=== PATIENT | female | born 2000 | race Caucasian/White ===

== ENCOUNTER 2019-12-26 17:22 | Emergency (ER) | payer OTHER, MEDICAID, SELFPAY ==
--- NOTE | ~2019-12-26 | XR_ITS ---
EXAMINATION: XR chest 1V portable EXAM DATE: 12/26/2019 20:46 INDICATION: Mid chest pain, anxiety. TECHNIQUE: Portable AP frontal chest x-ray was obtained. Comparison is made to prior examination from 12/02/18. FINDINGS: The lungs are clear. There are no pleural effusions. The cardiomediastinal silhouette is within normal limits. There is no pneumothorax suspected. The bones and soft tissues are unremarkab le. IMPRESSION: No acute cardiopulmonary findings. Reviewed, dictated and finalized at location A.
--- NOTE | 2019-12-26 17:30 | ECG_ITS ---
Measurements Intervals [place] Rate: 107 P: 59 RI: 177 QRS: 79 QRSD: 93 T: 7 QT: 319 QTc: 427 Interpretive Statements SINUS TACHYCARDIA ABNORMAL ECG BORDERLINE T WAVE ABNORMALITY- INFERIOR LEADS BASELINE ARTIFACT- II, III, AVF ABNORMAL ECG Electronically Signed On 12-26-2019 18:43:51 CDT by Calvin Osei D.O.
[2019-12-26 18:24] VITALS: BP 142/93; PULSE 120; RESP 22; TEMP 36.9; O2SAT 100
[2019-12-26 18:42] LABS: Basophils Percent Auto 0.3 % (0.2-1.2); Eosinophils Absolute Auto 0.1 K/mm3 (0-0.3); Eosinophils Percent Auto 1.5 % (0-4.4); Hematocrit 37.3 % (37.0-47.0); Hemoglobin 13.1 g/dL (12.0-15.0); Immature Granulocyte Absolute 0.03 K/mm3 (0.00-0.031); Immature Granulocyte Percent A 0.4 % (0-0.5); Lymphocytes Absolute Auto 1.66 K/mm3 (0.9-3.2); Lymphocytes Percent Auto 22.1 % (18.3-44.2); Mean Corpuscular HGB Conc 35.1 g/dl (32-36); Mean Corpuscular Hemoglobin 29.7 pg (26-34); Mean Corpuscular Volume 84.6 fl (80-100); Mean Platelet Volume 10.1 fl (7.4-10.4); Monocytes Absolute Auto 0.7 K/mm3 (0.1-0.6); Monocytes Percent Auto 8.9 % (2.6-8.5); Neutrophils Percent Auto 66.8 % (45.5-73.1); Platelet Count Result 218 k/mm3 (150-375); Red Blood Count 4.41 M/mm3 (4.2-5.4); White Blood Count 7.5 K/mm3 (4.5-10.0)
[2019-12-26 18:44] LABS: Prothrombin Time 12.5 Seconds (11.1-14.7)
[2019-12-26 18:46] LABS: Anion Gap 7 mmol/L (8-16); Blood Urea Nitrogen 11 mg/dL (7-17); Calcium 9.4 mg/dL (8.4-10.2); Carbon Dioxide 26 mmol/L (22-30); Chloride 107 mmol/L (98-107); Estimated CRCL calculation 126 ml/min; Estimated Glomerular Filt Rate > 60; Glucose 103 mg/dL (65-105); Potassium 3.8 mmol/L (3.4-5.0); Sodium 140 mmol/L (137-145)
[2019-12-26 18:58] LABS: Troponin I < 0.012 ng/mL (0.000-0.034)
[2019-12-26 18:59] VITALS: BP 164/88; PULSE 107; RESP 18; O2SAT 98
[2019-12-26 20:00] VITALS: BP 126/86; PULSE 104; RESP 17; O2SAT 99
[2019-12-26 20:14] LABS: Magnesium 1.9 mg/dL (1.6-2.3)
[2019-12-26 20:18] LABS: D Dimer 0.39 ug/mL (<0.48)
--- NOTE | 2019-12-26 20:30 | PC.NURSE ---
Patient refusing IV start and IV fluids-she feels that all her symptoms were related to Anxiety attack. Dr Mendez made aware. Patient resting comfortably with family at bedside
[2019-12-26 20:34] LABS: Add Urine Microscopic? YES; Amorphous Sediment Urine Few; Appearance Urine Cloudy (Clear); Bacteria Urine Trace /hpf; Bilirubin Urine Negative (Negative); Blood Urine Negative (Negative); Color Urine Yellow (Yellow); Glucose Urine UA Negative (Negative); Ketones Urine Negative (Negative); Leukocyte Esterase Ur Trace LEU/UL (Negative); Mucus Urine Rare /lpf; Nitrate Urine Negative (Negative); Protein Urine Negative (Negative); RBC Urine 0-2 /hpf (0-2); Specific Grav Ur 1.026 (1.001-1.035); Squamous Epithelial Cell Urine Many /hpf (Few); Urobilinogen Urine Negative mg/dL (<2.0)
--- NOTE | 2019-12-26 20:41 | ED.ANXIETY ---
HPI - Anxiety General Chief Complaint: Anxiety Stated Complaint: ANXIETY, CHEST DISCOMFORT 8WKS PREG Time Seen by Provider: 12/26/19 19:06 Source: patient and family Mode of arrival: ambulatory Limitations: no limitations Review of Systems Review of Systems: All systems reviewed & are unremarkable except as noted in HPI and below Constitutional: Constitutional: Denies chills and Denies fever(s) Cardiovascular: Cardiovascular: Reports chest pain and Reports rapid heart rate Respiratory: Respiratory: Denies cough and Denies wheezing Gastrointestinal: Gastrointestinal: Denies abdominal pain, Reports diarrhea, Reports nausea and Reports vomiting Genitourinary: Genitourinary: Denies nocturia, Denies dysuria and Denies flank pain Musculoskeletal: Musculoskeletal: Denies back pain Psychiatric: Psychiatric: Reports anxiety [facility] Past Medical History Medical History (Updated 12/26/19 @ 20:41 by Lindsey Mendez MD) Patient denies medical problems Social History Social History (Updated 12/26/19 @ 20:41 by Lindsey Mendez MD) Smoking status: Never smoker Alcohol intake: never Substance use: never Gender identity (if verbalized by the patient): Female Course Vital Signs Vital signs: Vital Signs Temperature 98.5 F 12/26/19 18:24 Pulse Rate 120 H 12/26/19 18:24 Respiratory Rate 22 H 12/26/19 18:24 Blood Pressure 142/93 H 12/26/19 18:24 Pulse Oximetry 100 12/26/19 18:24 Temperature 98.5 F 12/26/19 18:24 Pulse Rate 107 H 12/26/19 18:59 Respiratory Rate 18 12/26/19 18:59 Blood Pressure 164/88 H 12/26/19 18:59 Pulse Oximetry 98 12/26/19 18:59 MDM - Anxiety Lab Data Result diagrams: 12/26/19 18:29 12/26/19 18:29 Labs: Lab Results 12/26/19 12/26/19 12/26/19 Range/Units 18:28 18:28 18:29 WBC 7.5 (4.5-10.0) K/mm3 RBC 4.41 (4.2-5.4) M/mm3 Hgb 13.1 (12.0-15.0) g/dL Hct 37.3 (37.0-47.0) % MCV 84.6 (80-100) fl MCH 29.7 (26-34) pg MCHC 35.1 (32-36) g/dl RDW 12.0 (11.5-14.5) % Plt Count 218 (150-375) k/mm3 MPV 10.1 (7.4-10.4) fl Immature Gran % (Auto) 0.4 (0-0.5) % Neut % (Auto) 66.8 (45.5-73.1) % Lymph % (Auto) 22.1 (18.3-44.2) % [place] % (Auto) 8.9 H (2.6-8.5) % Eos % (Auto) 1.5 (0-4.4) % Baso % (Auto) 0.3 (0.2-1.2) % Lymph # (Auto) 1.66 (0.9-3.2) K/mm3 [place] # (Auto) 0.7 H (0.1-0.6) K/mm3 Eos # (Auto) 0.1 (0-0.3) K/mm3 Baso # (Auto) 0.0 (0.0-0.1) K/mm3 Abs Immat Gran (auto) 0.03 (0.00-0.031) K/mm3 Absolute Neuts (auto) 5.0 (1.3-6.7) K/mm3 Absolute Nucleated RBC 0.0 (0.0-0.012) K/mm3 Nucleated RBC % 0.0 (0.0-0.2) % PT (11.1-14.7) Seconds INR APTT (22.3-36.8) SECONDS D-Dimer 0.39 (<0.48) ug/mL Sodium (137-145) mmol/L Potassium (3.4-5.0) mmol/L Chloride (98-107) mmol/L Carbon Dioxide (22-30) mmol/L Anion Gap (8-16) mmol/L BUN (7-17) mg/dL Creatinine (0.7-1.0) mg/dL Estim Creat Clear Calc ml/min Estimated GFR (59 - ) Glucose (65-105) mg/dL Calcium (8.4-10.2) mg/dL Magnesium 1.9 (1.6-2.3) mg/dL Troponin I (0.000-0.034) ng/mL Urine Color (Yellow) Urine Appearance (Clear) Urine pH (5.0-9.0) Ur Specific [place] (1.001-1.035) Urine Protein (Negative) mg/dL Urine Glucose (UA) (Negative) mg/dL Urine Ketones (Negative) mg/dL Ur Blood (Man) (Negative) Urine Nitrate (Negative) Urine Bilirubin (Negative) Urine Urobilinogen (<2.0) mg/dL Leukocyte Esterase Rfl (Negative) DAVID/UL Urine RBC (0-2) /hpf Urine WBC /hpf Ur Squamous Epith Cells (Few) /hpf Amorphous Sediment (None) Urine Bacteria /hpf Urine Mucus /lpf 12/26/19 12/26/19 12/26/19 Range/Units 18:29 18:29 20:22 WBC (4.5-10.0) K/mm3 RBC (4.2-5.4) M/mm3 Hgb (12.0-15.0) g/dL Hct
--- NOTE | 2019-12-26 20:44 | ED.ANXIETY ---
HPI - Anxiety General Chief Complaint: Anxiety Stated Complaint: ANXIETY, CHEST DISCOMFORT 8WKS PREG Time Seen by Provider: 12/26/19 19:06 Source: patient and family Mode of arrival: ambulatory Limitations: no limitations History of Present Illness HPI narrative: This patient is a 19 year old female approximately 8 weeks GA who presents for evaluation a possible anxiety attack. She states while she was at work today she developed nonradiating left upper chest tightness. She also had a rapid heart rate, anxiousness and she also became tearfule. She states she thinks she had a panic attack but she has never had one before like this. She wanted to make sure nothing else . She states she feels better . Her chest tightness is better. She denies fever, chills, cough, leg swelling or calf pain. She reports nausea and vomiting with her . She denies any abodminal pain, vaginal bleeding or spotting. Her OBGYN is Dr. Camilo Review of Systems Review of Systems: All systems reviewed & are unremarkable except as noted in HPI and below Cardiovascular: Cardiovascular: Reports chest pain and Reports rapid heart rate Respiratory: Respiratory: Denies cough and Denies dyspnea Gastrointestinal: Gastrointestinal: Denies abdominal pain, Reports diarrhea, Reports nausea and Reports vomiting Genitourinary: Genitourinary: Denies dysuria, Denies pelvic pain and Denies vaginal discharge [facility] Past Medical History Medical History (Updated 12/27/19 @ 00:00 by Crystal Damartell) Patient denies medical problems Social History Social History (Updated 12/26/19 @ 20:41 by Lindsey Mendez MD) Smoking status: Never smoker Alcohol intake: never Substance use: never Gender identity (if verbalized by the patient): Female Exam Const: General: no acute distress and alert Nutritional Appearance: obese Orientation/consciousness: patient oriented x3 HENMT: Head: normocephalic and atraumatic Mouth: Yes Normal oral and palatal mucosa present, Yes lip normal, Yes oropharynx normal and Yes moist mucous membranes Eyes: EOM: EOMs intact bilaterally Chest: Chest palpation & inspection: normal inspection of the chest Resp: Effort & Inspection: normal respiratory effort, no retractions and no use of accessory muscles Auscultation: clear to auscultation bilaterally Cardio: Rate: tachycardic Rhythm: regular rhythm Heart sounds: no murmurs GI: GI Palp: Yes Soft to palpation, No Tenderness to palpation present (GI), No Guarding due to palpation present (GI), No Rigid due to palpation and No Hernia present Back/Spine/Pelvis: Back: no CVA tenderness Skin: General skin exam: normal color Rashes: no rashes Neuro: General: patient oriented x3, moves all extremities and CN's II-XI intact bilaterally Extrem: General: normal to inspection and no pedal edema Psych: Mental Status: mental status grossly normal Affect: normal affect Course Reevaluation(s) Reevaluation #1: Patient's labs are unremarkable. This may be due to anxiety. She is still tachycardic and I ordered IVF but she refused. Date: 12/26/19 Time: 22:11 Vital Signs Vital signs: Vital Signs Temperature 98.5 F 12/26/19 18:24 Pulse Rate 120 H 12/26/19 18:24 Respiratory Rate 22 H 12/26/19 18:24 Blood Pressure 142/93 H 12/26/19 18:24 Pulse Oximetry 100 12/26/19 18:24 Temperature 98.5 F 12/26/19 18:24 Pulse Rate 106 H 12/26/19 22:00 Respiratory Rate 18 12/26/19 22:00 Blood Pressure 123/72 12/26/19 22:00 Pulse Oximetry 98 12/26/19 22:00 MDM - Anxiety Lab Data Attestation: I reviewed the patient's lab results. Result diagrams: 12/26/19 18:29 12/26/19 18:29 Labs: Lab Results 12/26/19 12/26/19 12/26/19 Range/Units 18:28 18:28 18:29 WBC 7.5 (4.5-10.0) K/mm3 RBC 4.41 (4.2-5.4) M/mm3 Hgb 13.1 (12.0-15.0) g/dL Hct 37.3 (37.0-47.0) % MCV 84.6 (80-100) fl MCH 29.7
[2019-12-26 21:00] VITALS: BP 120/75; PULSE 111; RESP 18; O2SAT 97
[2019-12-26 22:00] VITALS: BP 123/72; PULSE 106; RESP 18; O2SAT 98
[2019-12-26 22:07] LABS: Troponin I < 0.012 ng/mL (0.000-0.034)
== END 2019-12-26 22:35 | disposition home or self-care (01) ==
PROVIDERS: Emergency Medicine; Emergency Provider General Practice
DX: O26.891 Other specified pregnancy related conditions, first trimester (principal); R00.2 Palpitations; R00.0 Tachycardia, unspecified; R94.31 Abnormal electrocardiogram [ECG] [EKG]; Z3A.08 8 weeks gestation of pregnancy
CPT/HCPCS: 36415; 71045; 80048; 81001; 83735; 84484; 85025; 85380; 85610; 85730; 93005; 99284

== ENCOUNTER 2020-06-26 12:40 | Observation (INO) | payer BC, MEDICAID, SELFPAY ==
--- NOTE | 2020-06-26 15:49 | LDADM ---
This patient, Linh Sosa, was admitted to OB Post 112 on 06/26/20 at 12:40. Plans for labor, pain management and were discussed with patient. Patient/family oriented to hospital policies and general routines including ID bracelet, bed and alarms, visiting hours, pain management, procedures, bathroom and other care routines, personal items, smoking policy, room service/diet and guest tray routines, infant security routines, call light, and visiting hours. Patient/Family are encouraged to report perceived risks to care and to ask questions if they do not understand what they are told or what they should do. See OBIX for further documentation.
--- NOTE | 2020-07-20 19:42 | PM.OBTRLD ---
OB - Triage/Final Diagnosis Visit Information Comments/Additional reasons for admission: I have assessed the risk for this patient, Linh Sosa, and determined that she would benefit from observation care. Final Diagnosis (1) Heart palpitations: Code(s): R00.2 - Palpitations Status: Acute
== END 2020-06-26 14:45 | disposition home or self-care (01) ==
PROVIDERS: Admitting Provider Obstetrics & Gynecology; PCP Emergency Medicine; Visit Provider Obstetrics & Gynecology
DX: O26.893 Other specified pregnancy related conditions, third trimester (principal); R00.2 Palpitations; Z3A.33 33 weeks gestation of pregnancy
CPT/HCPCS: 59025; G0378; G0379

== ENCOUNTER 2020-07-02 17:30 | Outpatient (CLI) | payer BC, MEDICAID, SELFPAY ==
[2020-07-02] VITALS (20 sets, daily range): BP systolic 118–131; BP diastolic 69–80; PULSE 104–137; O2SAT 97–100; BMI 41.9
[2020-07-02 18:34] LABS: Basophils Percent Auto 0.3 % (0.2-1.2); Eosinophils Percent Auto 0.4 % (0-4.4); Hematocrit 34.6 % (37.0-47.0); Hemoglobin 11.4 g/dL (12.0-15.0); Immature Granulocyte Absolute 0.05 K/mm3 (0.00-0.031); Immature Granulocyte Percent A 0.7 % (0-0.5); Lymphocytes Absolute Auto 1.76 K/mm3 (0.9-3.2); Lymphocytes Percent Auto 24.4 % (18.3-44.2); Mean Corpuscular HGB Conc 32.9 g/dl (32-36); Mean Corpuscular Hemoglobin 28.6 pg (26-34); Mean Corpuscular Volume 86.7 fl (80-100); Mean Platelet Volume 10.7 fl (7.4-10.4); Monocytes Absolute Auto 0.6 K/mm3 (0.1-0.6); Monocytes Percent Auto 8.3 % (2.6-8.5); Neutrophils Absolute Auto 4.8 K/mm3 (1.3-6.7); Neutrophils Percent Auto 65.9 % (45.5-73.1); Platelet Count Result 182 k/mm3 (150-375); Red Blood Count 3.99 M/mm3 (4.2-5.4); Red Cell Distribution Width 13.6 % (11.5-14.5); White Blood Count 7.2 K/mm3 (4.5-10.0)
[2020-07-02 18:43] LABS: Alanine Aminotransferase 40 U/L (4-35); Albumin Level 3.9 g/dL (3.5-5.1); Alkaline Phosphatase 63 U/L (38-126); Anion Gap 9 mmol/L (8-16); Aspartate Amino Transferase 41 U/L (14-36); Bilirubin,Total 0.3 mg/dL (0.2-1.3); Blood Urea Nitrogen 8 mg/dL (7-17); Calcium 9.4 mg/dL (8.4-10.2); Carbon Dioxide 22 mmol/L (22-30); Chloride 105 mmol/L (98-107); Estimated Glomerular Filt Rate > 60; Glucose 97 mg/dL (65-105); Potassium 3.7 mmol/L (3.4-5.0); Sodium 136 mmol/L (137-145); Uric Acid 3.8 mg/dL (2.5-7.5)
== END 2020-07-02 19:50 | disposition home or self-care (01) ==
LOC: ANHOBOP 17:33 → ANHOBPP 17:33
PROVIDERS: PCP Emergency Medicine; Visit Provider Advanced Practice Midwife
DX: O13.9 Gestational [pregnancy-induced] hypertension without significant proteinuria, unspecified trimester (principal); Z3A.00 Weeks of gestation of pregnancy not specified
CPT/HCPCS: 36415; 59025; 80053; 84550; 85025; 99199

== ENCOUNTER 2020-07-03 20:20 | Outpatient (NON) | payer BC, MEDICAID, SELFPAY ==
[2020-07-03 22:05] LABS: Total Volume 24 Hour Urine 2400 ml
[2020-07-03 22:14] LABS: Total Volume 24 Hour Urine 2400 ml
[2020-07-03 22:21] LABS: Total Protein Urine 24 Hr 240 mg/24hr (28-141); Total Protein Urine Random 10 mg/dL
[2020-07-03 22:23] LABS: Creatinine Urine 84.4 mg/dL
== END 2020-07-03 20:21 | disposition home or self-care (01) ==
LOC: ANHLAB 20:34
PROVIDERS: PCP Emergency Medicine; Visit Provider Advanced Practice Midwife
DX: Z34.90 Encounter for supervision of normal pregnancy, unspecified, unspecified trimester (principal); Z3A.00 Weeks of gestation of pregnancy not specified
CPT/HCPCS: 81050; 82570; 84156

== ENCOUNTER 2020-07-28 17:00 | Inpatient (IN) | payer BC, MEDICAID, SELFPAY ==
[2020-07-28] VITALS (16 sets, daily range): BP systolic 101–122; BP diastolic 59–80; PULSE 103–125; TEMP 36.6–37.1
--- NOTE | 2020-07-28 17:40 | LDADM ---
This patient, Linh Sosa, was admitted to Labor/Delivery/Recovery 106 on 07/28/20 at 17:00. Plans for labor, pain management and were discussed with patient. Patient/family oriented to hospital policies and general routines including ID bracelet, bed and alarms, visiting hours, pain management, procedures, bathroom and other care routines, personal items, smoking policy, room service/diet and guest tray routines, infant security routines, and visiting hours. Patient/Family are encouraged to report perceived risks to care and to ask questions if they do not understand what they are told or what they should do. See OBIX for further documentation.
[2020-07-28 18:02] LABS: Basophils Percent Auto 0.3 % (0.2-1.2); Eosinophils Percent Auto 0.3 % (0-4.4); Hematocrit 34.4 % (37.0-47.0); Hemoglobin 11.6 g/dL (12.0-15.0); Immature Granulocyte Absolute 0.04 K/mm3 (0.00-0.031); Immature Granulocyte Percent A 0.5 % (0-0.5); Lymphocytes Percent Auto 19.1 % (18.3-44.2); Mean Corpuscular HGB Conc 33.7 g/dl (32-36); Mean Platelet Volume 10.4 fl (7.4-10.4); Monocytes Absolute Auto 0.5 K/mm3 (0.1-0.6); Monocytes Percent Auto 7.4 % (2.6-8.5); Neutrophils Absolute Auto 5.3 K/mm3 (1.3-6.7); Neutrophils Percent Auto 72.4 % (45.5-73.1); Platelet Count Result 197 k/mm3 (150-375); Red Cell Distribution Width 13.6 % (11.5-14.5); White Blood Count 7.3 K/mm3 (4.5-10.0)
[2020-07-28] MEDS: OXYTOCIN 30 UNITS/NS 500 ML 30 UNITS/500 ML BAG IV CONT (18:21)
[2020-07-28] MEDS: LACTATED RINGERS 1,000 ML 125 ML IV CONT ×2 (18:21→23:33)
[2020-07-28] MEDS: AMPICILLIN 2 GM/NS 100 ML 2 GM/100 ML BAG IVPB (18:21)
[2020-07-28 18:23] LABS: Alanine Aminotransferase 43 U/L (4-35); Alkaline Phosphatase 80 U/L (38-126); Anion Gap 7 mmol/L (8-16); Aspartate Amino Transferase 45 U/L (14-36); Bilirubin,Total 0.3 mg/dL (0.2-1.3); Blood Urea Nitrogen 8 mg/dL (7-17); Calcium 9.9 mg/dL (8.4-10.2); Carbon Dioxide 23 mmol/L (22-30); Chloride 104 mmol/L (98-107); Estimated Glomerular Filt Rate > 60; Glucose 85 mg/dL (65-105); Sodium 134 mmol/L (137-145)
[2020-07-28] MEDS: AMPICILLIN 1 GM/NS 50 ML 1 GM/50 ML BAG IVPB (22:19)
[2020-07-29] VITALS (128 sets, daily range): BP systolic 97–138; BP diastolic 42–87; PULSE 97–126; RESP 16; TEMP 36.6–37.2; O2SAT 93–100
[2020-07-29] MEDS: LACTATED RINGERS 1,000 ML 125 ML IV CONT ×2 (01:56→04:09)
[2020-07-29] MEDS: AMPICILLIN 1 GM/NS 50 ML 1 GM/50 ML BAG IVPB ×2 (02:24→06:21)
--- NOTE | 2020-07-29 02:24 | WPDANESEPPF ---
Anes - Initial Pre Proc Eval Procedure: labor epidural Date/Time: 07/29/20 02:24 Surgeon: Tiffanie Camilo MD Pre Op Diagnosis: labor pain Pre Op Diagnosis: Induction of Labor Patient Data Age: 19 Gender: F Height: Weight: Last Vital Signs Temp 36.6 C 07/29/20 02:00 Pulse 107 H 07/29/20 02:18 BP 125/69 07/29/20 02:18 Pulse Ox 98 07/29/20 02:23 Allergies Allergy/AdvReac Type Severity Reaction Status Date / Time ketamine Allergy Mild Don't know Verified 12/02/18 00:32 Home Medications Medication Instructions Recorded Confirmed Type PNV cmb#95-ferrous fumarate-FA 1 tablet PO DAILY 07/14/20 07/14/20 History [] Laboratory Tests 07/28/20 07/28/20 07/28/20 17:55 17:55 17:55 WBC 7.3 K/mm3 K/mm3 (4.5-10.0) RBC 4.00 M/mm3 L M/mm3 (4.2-5.4) Hgb 11.6 g/dL L g/dL (12.0-15.0) Hct 34.4 % L % (37.0-47.0) MCV 86.0 fl fl (80-100) MCH 29.0 pg pg (26-34) MCHC 33.7 g/dl g/dl (32-36) RDW 13.6 % % (11.5-14.5) Plt Count 197 k/mm3 k/mm3 (150-375) MPV 10.4 fl fl (7.4-10.4) Immature Gran % (Auto) 0.5 % % (0-0.5) Neut % (Auto) 72.4 % % (45.5-73.1) Lymph % (Auto) 19.1 % % (18.3-44.2) [place] % (Auto) 7.4 % % (2.6-8.5) Eos % (Auto) 0.3 % % (0-4.4) Baso % (Auto) 0.3 % % (0.2-1.2) Lymph # (Auto) 1.40 K/mm3 K/mm3 (0.9-3.2) [place] # (Auto) 0.5 K/mm3 K/mm3 (0.1-0.6) Eos # (Auto) 0.0 K/mm3 K/mm3 (0-0.3) Baso # (Auto) 0.0 K/mm3 K/mm3 (0.0-0.1) Abs Immat Gran (auto) 0.04 K/mm3 H K/mm3 (0.00-0.031) Absolute Neuts (auto) 5.3 K/mm3 K/mm3 (1.3-6.7) Absolute Nucleated RBC 0.0 K/mm3 K/mm3 (0.0-0.012) Nucleated RBC % 0.0 % % (0.0-0.2) Sodium Potassium Chloride Carbon Dioxide Anion Gap BUN Creatinine Estim Creat Clear Calc Estimated GFR Glucose Uric Acid 4.0 mg/dL mg/dL (2.5-7.5) Calcium Total Bilirubin AST ALT Alkaline Phosphatase Total Protein Albumin RPR Pending Blood Type Antibody Screen 07/28/20 07/28/20 17:55 17:55 WBC RBC Hgb Hct MCV MCH MCHC RDW Plt Count MPV Immature Gran % (Auto) Neut % (Auto) Lymph % (Auto) [place] % (Auto) Eos % (Auto) Baso % (Auto) Lymph # (Auto) [place] # (Auto) Eos # (Auto) Baso # (Auto) Abs Immat Gran (auto) Absolute Neuts (auto) Absolute Nucleated RBC Nucleated RBC % Sodium 134 mmol/L L mmol/L (137-145) Potassium 4.0 mmol/L mmol/L (3.4-5.0) Chloride 104 mmol/L mmol/L (98-107) Carbon Dioxide 23 mmol/L mmol/L (22-30) Anion Gap 7 mmol/L L mmol/L (8-16) BUN 8 mg/dL mg/dL (7-17) Creatinine 0.50 mg/dL L mg/dL (0.7-1.0) Estim Creat Clear Calc Not Reportable Estimated GFR > 60 (59 - ) Glucose 85 mg/dL mg/dL (65-105) Uric Acid Calcium 9.9 mg/dL mg/dL (8.4-10.2) Total Bilirubin 0.3 mg/dL mg/dL (0.2-1.3) AST 45 U/L H U/L (14-36) ALT 43 U/L H U/L (4-35) Alkaline Phosphatase 80 U/L U/L (38-126) Total Protein 7.0 g/dL g/dL (6.3-8.2) Albumin 4.0 g/dL g/dL (3.5-5.1) RPR Blood Type A Positive Antibody Screen Negative Patient hx anesthesia problems: none Family hx anesthesia problems: none PMFSH Family History Family History (Reviewed 07/29/20 @ 02:24
--- NOTE | 2020-07-29 07:55 | WPDOBADMIT ---
Obstetrics - Admit Note Admission Note: 19 y/o @ 38w3d was sent over yesterday for induction d/t gestational hypertension. VSS Contractions regular FHR category 1 Cervix anterior lip AROM performed Anticipate record reviewed. No pertinent additions to the history and/or any subsequent changes in the physical findings that are not consistent with the expected course of the were found. Additions to the history and/or subsequent changes in the physical findings follow. None.
--- NOTE | 2020-07-29 08:44 | P.PCNOB_ITS ---
OB - Delivery Note Procedure Delivery date: 07/29/20 events: Induced HTN Intrapartal events: None Induction method: per pitocin protocol Delivery monitor: external FHT and external uterine Route of delivery: Episiotomy description: None Laceration Description: None Specimen: Yes Quantitative Blood Loss (ml): 98 Anesthesia type: Epidural Narrative: Delivery per Z. Due SNM. Mother and baby in stable condition. Unable to obtain arterial gas. Venous gas collected and handed off to staff. [place] Baby Date of : 07/29/20 Time of : 08:30 Weeks of gestation at delivery: 38 Infant gender: Male Weight (pounds): 6 Weight (ounces): 3 presentation: vertex position: Left Occiput Anterior Placenta delivery description: Spontaneous cord vessel description: 3 Vessels and Delayed Cord Clamping score one minute: 8 score five minutes: 9
[2020-07-29] MEDS: OXYTOCIN 30 UNITS/NS 500 ML 30 UNITS/500 ML BAG 125 UNITS IV CONT (09:04)
[2020-07-29 10:35] LABS: Rapid Plasma Reagin Non-Reactive (NonReactive)
[2020-07-29] MEDS: IBUPROFEN 600 MG TABLET PO (10:38)
[2020-07-29] MEDS: BENZOCAINE 20% AER SPR (*SP) 56 GM CAN 1 SPRAY TOPICAL (10:39)
[2020-07-29] MEDS: WITCH HAZEL 40 PADS 1 PAD TOPICAL (10:39)
--- NOTE | 2020-07-29 11:41 | PC.NURSE ---
Patient transferred to post room #288 via wheelchair. Support person present. Oriented to unit, room, information board, rooming in, admission packet and security measures. Patient verbalizes understanding.
--- NOTE | 2020-07-29 13:00 | PC.NURSE ---
Mother called out for assist with feeding. Mother reports infant eagerly latched for first feeding with slight tenderness. Mother reports she mostly pumped and bottle fed with first child: mother did not latch putting infant to breast and was concerned could not breath. Discussed breathing and holding breast, mother states she no longer has concerns with putting to breast. Reviewed infant feeding cues, frequencies, duration of feedings, feeding elimination flow sheet, and signs of adequate intake. Demonstrated stimulation techniques to wake infant for feeding. Assisted with infant to breast. Reviewed positioning/alignment in cross cradle, holding breast in ?U? hold and guided asymmetrical latch on. Infant able to latch correctly. Infant nursed eagerly, with steady draws and frequent swallowing noted. Reviewed signs of a correct latch, effective nursing and suck swallow ratio. Infant would slip to shallow latch, mother reports tenderness. Demonstrated how to adjust latch more deeply while feeding. Mother reports she can feel change in latch and has no tenderness. Nipple care reviewed of lanolin after feedings, warm compresses and gel pads as needed. Suggested mother stimulate while feeding to increase stimulate, increase intake and to assist with maintaining deep latch. Instructed mother to call out for RN assistance if she is unable to latch infant for feeding or she has discomfort with nursing.
[2020-07-31 11:16] VITALS: BP 132/88; PULSE 90; RESP 20; TEMP 37.1; O2SAT 99
--- NOTE | 2020-08-21 11:17 | PM.OBDSVD ---
DS: Admitting Diagnosis Admitting Diagnosis Admitting Diagnosis: Labor OB - DS: Summary OB Procedures : None OB Procedures Intrapartum: Spontaneous Vag Delivery OB Procedures: : None Time Spent with Patient Time attestation: Total time spent providing and/or coordinating discharge services: DS: Data Data Completed and Pending Completed studies during hospitalization: Pending at discharge 07/29/20 08:35 Surgical [PTH] Routine Discharge Plan Discharge Consulting providers: Eimly Knight Discharging Clinician: Emily Knight Anticipated Discharge Date/Time: 07/29/20 20:00 Patient Disposition: Home, Self-Care Activity: pelvic rest Diet: regular Discharge Instructions: check Blood pressure twice at day. Follow-up at [place] on Follow-up in office at 1 week Education: Mom and Baby Guide Given to: Mother Follow-Up: Call your delivering provider's office for an appointment to be seen in: 1 Week Mom and baby [facility] the follow-up appointment. Appointment Date/Time: July 31, 2020 at 11:00 am What to expect at your follow-up visit: Blood Pressure Check Physical Assessment Call [phone] if you are unable to keep your appointment time. BREAST CARE: * Wear a snug supportive bra. * For engorgement discomfort: Breast Feeding: * Apply warm moist washcloths * Express milk as needed to relieve engorgement * Wear loose clothing * For sore nipples: * Identify correct latch-on * Apply warm moist washcloths before and after nursing * Air dry nipples after nursing * May apply Lansinoh cream to nipples EPISIOTOMY/PERINEAL CARE: * Until bleeding stops, use your juvenal bottle after urinating * Change your pad frequently throughout the day * No tub baths until seen by your physician - You may shower ACTIVITY: * Rest as much as possible. * Do not exercise or lift anything heavier than your baby (such as laundry or other children.) * Avoid stairs or driving as much as possible. * Do not put anything into the vagina. No douching, tampons, or sexual activity until seen by physician. NOTIFY PHYSICIAN IF YOU HAVE ANY QUESTIONS OR IF ANY OF THE FOLLOWING SYMPTOMS OCCUR: * If your episiotomy or incision becomes red, swollen, or more painful than what you have experienced in the hospital. * If your vaginal bleeding becomes foul smelling. * If your vaginal bleeding becomes more heavy than a period or if your bleeding changes from pink to bright red. However, you may pass an occasional walnut-sized clot once or twice for the first week . * If you experience a sharp, shooting pain in you calves. * If you discover a hard, reddened area on your breast or if you experience flu-like symptoms. DIET: * Eat regular, well-balanced meals. * Drink plenty of fluids daily. If , drink to thirst. Patient Instructions: Antibiotic Form Stand Alone Forms: General Discharge Information Follow-up/Referrals: Emily Knight CNM [Certified Nurse Strategies Analyst] - Discharge Medications: Continued PNV cmb#95-ferrous fumarate-FA [] 28 mg iron- 800 mcg Tablet 1 tablet PO DAILY RF: 0 Date of admission: 07/28/20 17:00 Primary Care Provider: Aba Salguero Admitting Provider: Tiffanie Camilo Attending physician on admission: Tiffanie Camilo Condition: Stable
== END 2020-07-29 20:42 | disposition home or self-care (01) | DRG 807 ==
LOC: ANHLDR 17:06 → ANHOB2 07-29 11:48
PROVIDERS: Advanced Practice Midwife; Admitting Provider Obstetrics & Gynecology; PCP Emergency Medicine; Visit Provider Obstetrics & Gynecology
DX: O13.4 Gestational [pregnancy-induced] hypertension without significant proteinuria, complicating childbirth (principal); Z37.0 Single live birth; Z3A.38 38 weeks gestation of pregnancy; O99.824 Streptococcus B carrier state complicating childbirth; O69.81X0 Labor and delivery complicated by cord around neck, without compression, not applicable or unspecified
CPT/HCPCS: 36415; 80053; 84550; 85025; 86592; 86850; 86900; 86901; 88307; A9270; J0290; J2590; J2795; J7120

== ENCOUNTER → 2020-09-08 09:19 | Outpatient (CLI) | payer BC, MEDICAID, SELFPAY ==
--- NOTE | ~2020-09-08 | XR_ITS ---
EXAMINATION: XR knee RT min 4V DATE: 09/08/2020 09:51 INDICATION: Right knee pain. TECHNIQUE: 4 views of right knee were obtained. COMPARISON: None. FINDINGS: Bone alignment is normal. No fracture. There is mild osteoarthritis of medial compartment c haracterized by a tiny marginal osteophyte. No knee joint effusion. IMPRESSION: 1. Mild right knee osteoarthritis. Reviewed, dictated and finalized at location A.
== END ==
PROVIDERS: PCP Emergency Medicine; Visit Provider Emergency Medicine
DX: M17.11 Unilateral primary osteoarthritis, right knee (principal)
CPT/HCPCS: 73564

== ENCOUNTER 2020-12-21 19:21 | Emergency (ER) | payer BC, MEDICAID, SELFPAY ==
[2020-12-21 19:26] VITALS: BP 150/103; PULSE 124; RESP 18; TEMP 36.6; O2SAT 99
[2020-12-21 20:11] LABS: Add Urine Microscopic? YES; Appearance Urine Clear (Clear); Bacteria Urine Trace /hpf; Bilirubin Urine Negative (Negative); Blood Urine 3+ (Negative); Color Urine Yellow (Yellow); Glucose Urine UA Negative (Negative); Ketones Urine Negative (Negative); Leukocyte Esterase Ur Trace LEU/UL (Negative); Mucus Urine Few /lpf; Nitrate Urine Negative (Negative); Protein Urine 2+ mg/dL (Negative); RBC Urine 51-75 /hpf (0-2); Specific Grav Ur 1.027 (1.001-1.035); Squamous Epithelial Cell Urine Many /hpf (Few); Urobilinogen Urine Negative mg/dL (<2.0)
--- NOTE | 2020-12-21 20:40 | ED.GENADULT ---
HPI - General Adult General Chief complaint: Unspecified <Eloisa Ewing PA-C - Last Filed: 12/21/20 21:55> Stated complaint: something moving in my stomach <HUAN Anaya Last Filed: 12/21/20 21:55> Time Seen by Provider: 12/21/20 19:42 <Eloisa Ewing PA-C - Last Filed: 12/21/20 21:55> Source: patient <HUAN Anaya Last Filed: 12/21/20 21:55> Mode of arrival: ambulatory <HUAN Anaya Last Filed: 12/21/20 21:55> Limitations: no limitations <HUAN Anaya Last Filed: 12/21/20 21:55> History of Present Illness HPI narrative: Patient presents for evaluation after feeling that she felt like a baby in her stomach 24 hours ago. Patient states that she called her primary care provider as she just had a baby in July and was told to present to emergency department for ultrasound. Patient has not had any fever, chills, nausea, vomiting, abdominal pain. She states that she took a test at home which was negative. <HUAN Anaya Last Filed: 12/21/20 21:55> Related Data Home medications: Home Medications Medication Instructions Recorded Confirmed PNV cmb#95-ferrous fumarate-FA 1 tablet PO DAILY 07/14/20 07/14/20 [] <Eloisa Ewing PA-C - Last Filed: 12/21/20 21:55> Allergies/adverse reactions: Allergies Allergy/AdvReac Type Severity Reaction Status Date / Time No Known Allergies Allergy Verified 12/21/20 19:41 <HUAN Anaya Last Filed: 12/21/20 21:55> Review of Systems Review of Systems: CONSTITUTIONAL: Denies fever, chills, or sweats. EYES: Denies visual changes, redness, or discharge. ENT: Denies rhinorrhea, congestion, sore throat, or otalgia. CARDIOVASCULAR: Denies chest pain, palpitations, or edema. RESPIRATORY: Denies cough or dyspnea. GASTROINTESTINAL: Denies abdominal pain, nausea, vomiting, or diarrhea. GENITOURINARY: Denies dysuria or hematuria. SKIN: Denies rash or itching. MUSCULOSKELETAL: Denies back pain, joint pain, or myalgia. NEUROLOGIC: Denies headache, numbness, dizziness, or weakness. PSYCHIATRIC: Denies anxiety or depression. <Eloisa Ewing PA-C - Last Filed: 12/21/20 21:55> PMFSH Past Medical History Medical History: Medical History (Updated 12/22/20 @ 00:01 by Crystal Martin) Patient denies medical problems <Eloisa Ewing PA-C - Last Filed: 12/21/20 21:55> Family History Family History: Family History Grandparent Diabetes mellitus Grandparent Heart attack Sibling Epilepsy <Eloisa Ewing PA-C - Last Filed: 12/21/20 21:55> Social History Social History: Social History (System 08/04/20 @ 08:58 by Kaylie Jones) Smoking status: Never smoker Alcohol intake: never Substance use: never Gender identity (if verbalized by the patient): Female Spiritual care concerns: No <Eloisa Ewing PA-C - Last Filed: 12/21/20 21:55> Exam Narrative: GENERAL: Well-appearing, well-nourished, and in no acute distress. HEAD: Normocephalic, atraumatic. EYES: PERRLA and EOMI. NECK: Supple. No adenopathy or masses. No carotid bruits or JVD CHEST: Clear to auscultation. No respiratory distress. No wheezes rales or rhonchi HEART: Regular rate and rhythm. No murmur heard. Normal peripheral pulses. ABDOMEN: Soft, nontender no umbilical hernias palpated. no abnormal movements felt., nondistended, normal active bowel sounds. EXTREMITIES: Normal range of motion. No edema. SKIN: Warm, dry, no rash. NEURO: No focal deficits. Alert and oriented x3. PSYCH: Normal mood and affect. <Eloisa Ewing PA-C - Last Filed: 12/21/20 21:55> Course Vital Signs Vital signs: Vital Signs Temperature 36.6 C 12/21/20 19:26 Pulse Rate 124 H 12/21/20 19:26 Respiratory Rate 18 12/21/20 19:26 Blood Pressure 150/103 H 12/21/20 19:26 Pulse Oximetry 99 12/21/20 19:26
== END 2020-12-21 21:17 | disposition home or self-care (01) ==
PROVIDERS: Physician Assistant; Emergency Provider Emergency Medicine; PCP Emergency Medicine
DX: Z04.89 Encounter for examination and observation for other specified reasons (principal)
CPT/HCPCS: 81001; 81025; 87086; 87088; 87147; 99283

== ENCOUNTER 2020-12-23 11:16 | Outpatient (CLI) | payer BC, MEDICAID, SELFPAY ==
--- NOTE | ~2020-12-23 | XR_ITS ---
EXAMINATION: XR abdomen obstructive series DATE: 12/23/2020 11:37 INDICATION: Left upper quadrant abdominal pain. Hematuria. TECHNIQUE: Upright and supine views of the abdomen on 3 radiographs were obtained. COMPARISON: CT abdomen and pelvis 12/02/2018 FINDINGS: There are no dilated loops of bowel. There is a small volume of stool in the colon. No free intraperitoneal gas. Calcifications in right pelvis may be vascular. Surgical clips in the right upp er quadrant are likely from cholecystectomy. IMPRESSION: 1. No etiology for the patient's symptoms. Reviewed, dictated and finalized at location A.
== END 2020-12-23 11:17 | disposition home or self-care (01) ==
PROVIDERS: PCP Emergency Medicine; Visit Provider Emergency Medicine
DX: R31.9 Hematuria, unspecified (principal); R74.8 Abnormal levels of other serum enzymes; R10.31 Right lower quadrant pain
CPT/HCPCS: 74019

== ENCOUNTER 2024-01-25 17:36 | Emergency (ER) | payer BC, MEDICAID, SELFPAY ==
[2024-01-25 17:37] VITALS: BP 144/85; PULSE 114; RESP 18; TEMP 36.2; O2SAT 98
--- NOTE | 2024-01-25 17:45 | ED_ITS ---
HPI - Recheck/Abnormal Lab/Rx General Chief Complaint: Recheck/Abnormal Lab/Rx Stated Complaint: htn Time Seen by Provider: 01/25/24 17:45 Focused HPI: this is a 23-year-old female that presents to the emergency department for elevated blood pressure. Reports history of gestational hypertension with a previous . She is currently 15 weeks . She is not on any antihypertensives at this point. Does report her blood pressure has been elevated over the last month. Reports her heart rate was elevated today is well which prompted her to be seen. She does have an appointment with her PCP tomorrow. GENERAL: Well-appearing, well-nourished, mildly anxious HEAD: Normocephalic, atraumatic. CHEST: Clear to auscultation. ?No respiratory distress. HEART: Regular rhythm, tachycardic NEURO: ?Alert and oriented x3. Patient screened in triage and initial orders placed.? ?Additional care and disposition to be based upon?diagnostic testing and treatment. Related Data Home Medications Medication Instructions Recorded Confirmed vit no.95-ferrous 1 tablet PO DAILY 07/14/20 07/14/20 fumarate 28 mg-folic acid 800 mcg tablet () Allergies Allergy/AdvReac Type Severity Reaction Status Date / Time No Known Allergies Allergy Verified 07/15/23 09:13 [facility] Past Medical History Medical History (Updated 01/25/24 @ 17:46 by Drea Gamino PA-C) Patient denies medical problems Family History Family History Grandparent Diabetes mellitus Grandparent Heart attack Sibling Epilepsy Social History Social History (System 07/15/23 @ 09:13 by Zafar Medel) Smoking status: Never smoker Alcohol intake: never Substance use: never Gender identity (if verbalized by the patient): Female Spiritual care concerns: No Course Vital Signs Vital signs: Vital Signs Temperature 97.2 F L 01/25/24 17:37 Pulse Rate 114 H 01/25/24 17:37 Respiratory Rate 18 01/25/24 17:37 Blood Pressure 144/85 H 01/25/24 17:37 Pulse Oximetry 98 01/25/24 17:37 Temperature 97.2 F L 01/25/24 17:37 Pulse Rate 114 H 01/25/24 17:37 Respiratory Rate 18 01/25/24 17:37 Blood Pressure 144/85 H 01/25/24 17:37 Pulse Oximetry 98 01/25/24 17:37 Discharge Plan Discharge Clinical Impression: Tachycardia, Elevated blood pressure reading Patient Disposition: Elopement After Seen by Prov Condition: Stable Prescriptions: No Action PNV cmb#95-ferrous fumarate-FA [] 28 mg iron- 800 mcg Tablet 1 tablet PO DAILY Follow-up/Referrals: Aba Salguero MD [Primary Care Provider] -
== END 2024-01-25 18:10 | disposition left against medical advice (07) ==
LOC: ANHED 18:07
PROVIDERS: Emergency Provider Physician Assistant; PCP Emergency Medicine
DX: O99.891 Other specified diseases and conditions complicating pregnancy (principal); R03.0 Elevated blood-pressure reading, without diagnosis of hypertension; R00.0 Tachycardia, unspecified; Z3A.15 15 weeks gestation of pregnancy
CPT/HCPCS: 99281

== ENCOUNTER 2024-03-15 16:33 | Observation (INO) | payer BC, MEDICAID, SELFPAY ==
--- NOTE | ~2024-03-15 | US_ITS ---
Limited ULTRASOUND (Duplex and color flow interrogation techniques used for this exam.) Ordering provider: Ryanne Jenkins CNM History: . bleeding; check placenta, cervical length . Comparison: Findings: Number of fetuses: 1 Transverse lie. Placental location: Posterior Previa: No. Distance from placenta to cervix is 3.1 cm. Cervix length is 4.8 cm. Amniotic fluid : Normal Heart rate: 144 bpm IMPRESSION: Single live fetus of transverse lie. Follow-up advised. No placenta previa seen. Placenta is posterior. Reviewed, dictated and finalized at location A. [employer]
[2024-03-15 16:31] VITALS: BP 122/69; PULSE 101
[2024-03-15 16:46] VITALS: BP 120/56; PULSE 95
[2024-03-15 16:53] LABS: Add Urine Microscopic? YES; Appearance Urine Clear (Clear); Bacteria Urine None Seen /hpf; Bilirubin Urine Negative (Negative); Blood Urine Trace (Negative); Color Urine Yellow (Yellow); Glucose Urine UA Negative (Negative); Ketones Urine Negative (Negative); Leukocyte Esterase Ur Negative LEU/UL (Negative); Nitrate Urine Negative (Negative); Non Pathogenic Casts 0-2; Protein Urine Trace mg/dL (Negative); RBC Urine 0-2 /hpf (0-2); Specific Grav Ur 1.025 (1.001-1.035); Squamous Epithelial Cell Urine Occasional /hpf (Few); WBC Urine 0-5 /hpf (0-3); pH Urine 5.5 (5.0-9.0)
[2024-03-15 17:01] VITALS: BP 122/66; PULSE 104
[2024-03-15 17:08] LABS: Basophils Percent Auto 0.4 % (0.2-1.2); Eosinophils Absolute Auto 0.1 K/mm3 (0-0.3); Hematocrit 33.7 % (37.0-47.0); Hemoglobin 11.5 g/dL (12.0-15.0); Immature Granulocyte Absolute 0.05 K/mm3 (0.00-0.031); Immature Granulocyte Percent A 0.6 % (0-0.5); Lymphocytes Absolute Auto 1.62 K/mm3 (0.9-3.2); Lymphocytes Percent Auto 19.5 % (18.3-44.2); Mean Corpuscular HGB Conc 34.1 g/dl (32-36); Mean Corpuscular Hemoglobin 29.9 pg (26-34); Mean Corpuscular Volume 87.5 fl (80-100); Mean Platelet Volume 10.2 fl (7.4-10.4); Monocytes Absolute Auto 0.6 K/mm3 (0.1-0.6); Monocytes Percent Auto 7.2 % (2.6-8.5); Neutrophils Absolute Auto 5.9 K/mm3 (1.3-6.7); Neutrophils Percent Auto 71.3 % (45.5-73.1); Platelet Count Result 182 k/mm3 (150-375); Red Blood Count 3.85 M/mm3 (4.2-5.4); Red Cell Distribution Width 13.4 % (11.5-14.5); White Blood Count 8.3 K/mm3 (4.5-10.0)
[2024-03-15 17:16] VITALS: BP 113/49; PULSE 96
[2024-03-15 17:18] LABS: Amylase 62 U/L (30-110); Lipase 60 U/L (23-300)
[2024-03-15 17:21] VITALS: TEMP 36.6
[2024-03-15 17:23] LABS: Alanine Aminotransferase 185 U/L (6-35); Albumin Level 4.1 g/dL (3.5-5.1); Alkaline Phosphatase 68 U/L (38-126); Anion Gap 5 mmol/L (4-12); Aspartate Amino Transferase 165 U/L (14-36); Bilirubin,Total 0.5 mg/dL (0.2-1.3); Blood Urea Nitrogen 8 mg/dL (7-17); Calcium 9.5 mg/dL (8.4-10.2); Carbon Dioxide 23 mmol/L (22-30); Chloride 106 mmol/L (98-107); Estimated Glomerular Filt Rate > 60; Glucose 85 mg/dL (65-110); Sodium 134 mmol/L (137-145)
--- NOTE | 2024-03-15 19:01 | PM.IMHP ---
H&P: HPI History of Present Illness Date/Time: 03/15/24 19:01 Chief Complaint: Pt is a at 22.5 weeks gestation. pt arrived to labor and delivery with complaints of right upper quadrant pain that started yesterday. Pain is a 4 when resting and is 6 with coughing or moving. Also complaints of vaginal spotting that started at around 3 pm this afternoon. history of circumvallate placenta, appendectomy, cholecystectomy, procedure on heart as a child. and fatty liver disease. anxiety and depression history, not currently on medication. pt was diagnosed in 2012 with fatty liver after provider ruled out hemochromatosis. liver enzymes elevated after initial evaluation, obstetric US ordered [facility] Past Medical History Medical History (Updated 03/15/24 @ 19:02 by Ryanne Jenkins CNM) Patient denies medical problems Family History Family History Grandparent Diabetes mellitus Grandparent Heart attack Sibling Epilepsy Social History Social History (System 07/15/23 @ 09:13 by Zafar Medel) Smoking status: Never smoker Alcohol intake: never Substance use: never Gender identity (if verbalized by the patient): Female Spiritual care concerns: No Meds Home Medications and Allergies Home Medications ?Medication ?Instructions ?Recorded ?Confirmed ?Type vit no.95-ferrous 1 tablet PO DAILY 07/14/20 07/14/20 History fumarate 28 mg-folic acid 800 mcg tablet () Allergies Allergy/AdvReac Type Severity Reaction Status Date / Time No Known Allergies Allergy Verified 07/15/23 09:13 Vital Signs Vital Signs - 24 hr 03/15/24 16:31 03/15/24 16:46 03/15/24 17:01 Temperature Pulse Rate 101 H 95 104 H Blood Pressure 122/69 120/56 L 122/66 03/15/24 17:16 03/15/24 17:21 Temperature 36.6 C Pulse Rate 96 Blood Pressure 113/49 L Exam Const: General: cooperative and healthy appearing Neck: Neck: normal visual inspection Chest: Chest palpation & inspection: normal inspection of the chest Resp: Effort & Inspection: normal respiratory effort Cardio: Rate: regular rate GI: Other: soft, gravid, tender with palpation over right upper quadrant : Other: deferred Back/Spine/Pelvis: Back: no CVA tenderness Skin: General skin exam: normal color Neuro: General: patient oriented x3 Extrem: General: normal to inspection Psych: Appearance: grossly normal H&P: Results Labs Labs: Short CBC 03/15/24 Range/Units 16:56 WBC 8.3 (4.5-10.0) K/mm3 Hgb 11.5 L (12.0-15.0) g/dL Hct 33.7 L (37.0-47.0) % Plt Count 182 (150-375) k/mm3 BMP 03/15/24 16:56 Sodium 134 L Potassium 4.0 Chloride 106 Carbon Dioxide 23 BUN 8 Creatinine 0.50 L Glucose 85 Calcium 9.5 Liver Function 03/15/24 Range/Units 16:56 Total Bilirubin 0.5 (0.2-1.3) mg/dL AST 165 H (14-36) U/L ALT 185 H (6-35) U/L Alkaline Phosphatase 68 (38-126) U/L Albumin 4.1 (3.5-5.1) g/dL Urine 03/15/24 Range/Units 16:37 Urine Color Yellow (Yellow) Urine Appearance Clear (Clear) Urine pH 5.5 (5.0-9.0) Ur Specific [place] 1.025 (1.001-1.035) Urine Protein Trace (Negative) mg/dL Urine Glucose (UA) Negative (Negative) mg/dL Assessment and Plan Assessment and plan (1) Right upper quadrant pain: Code(s): R10.11 - Right upper quadrant pain Status: Acute Assessment and Plan: right upper quadrant pain transaminitis spoke with dr. baltazar at [facility] awaiting call back co-managing with dr. ortega (2) Vaginal bleeding: Code(s): N93.9 - Abnormal uterine and vaginal bleeding, unspecified Status: Acute Assessment and Plan: US ordered, no active bleeding
--- NOTE | 2024-03-15 19:18 | PC.NURSE ---
RN at bedside assessing vaginal bleeding, no vaginal bleeding at this time.
--- NOTE | 2024-03-15 19:20 | PC.NURSE ---
Sandra Jenkins CNM at bedside discussing plan of care.
[2024-03-15 20:04] VITALS: BMI 48.0
--- NOTE | 2024-03-15 20:17 | PC.NURSE ---
Pt discharged with instructions for 24 hour urine collection, keep next scheduled appointment, and when to return to the unit, pt verbalizes understanding.
[2024-03-15 20:33] LABS: Hepatitis B Surface Antigen Negative (Negative)
[2024-03-15 20:39] LABS: HAV RESULT Negative (Negative); Hepatitis B Core IgM Result Negative (Negative)
[2024-03-15 20:50] LABS: Hepatitis C Virus Antibody Negative (Negative)
== END 2024-03-15 20:17 | disposition home or self-care (01) ==
PROVIDERS: Advanced Practice Midwife; Admitting Provider Obstetrics & Gynecology; PCP Nurse Practitioner; Visit Provider Obstetrics & Gynecology
DX: O26.892 Other specified pregnancy related conditions, second trimester (principal); R10.11 Right upper quadrant pain; O26.852 Spotting complicating pregnancy, second trimester; O26.612 Liver and biliary tract disorders in pregnancy, second trimester; R74.01 Elevation of levels of liver transaminase levels; K76.0 Fatty (change of) liver, not elsewhere classified; Z3A.22 22 weeks gestation of pregnancy; Z90.49 Acquired absence of other specified parts of digestive tract
CPT/HCPCS: 36415; 76815; 80053; 80074; 81001; 82150; 82542; 83690; 85025; 86695; 86696; G0378; G0379

== ENCOUNTER 2024-03-16 19:34 | Outpatient (CLI) | payer BC, MEDICAID, SELFPAY ==
[2024-03-17 01:02] LABS: Collection Time Urine 24 HOURS
[2024-03-17 01:40] LABS: Creatinine Clearance Urine 194.4 ml/min (75-125); Patient Weight 306 Lbs; Total Volume 24 Hour Urine 900 ml
[2024-03-17 19:43] LABS: Total Protein Urine 24 Hr 45 mg/24hr (28-141); Total Protein Urine Random < 5 mg/dL
== END 2024-03-16 19:35 | disposition home or self-care (01) ==
LOC: ANHOBOP 20:01
PROVIDERS: PCP Nurse Practitioner; Visit Provider Obstetrics & Gynecology
DX: Z34.90 Encounter for supervision of normal pregnancy, unspecified, unspecified trimester (principal); Z3A.00 Weeks of gestation of pregnancy not specified
CPT/HCPCS: 81050; 82575; 84156

== ENCOUNTER 2024-03-21 08:52 | Outpatient (CLI) | payer BC, MEDICAID, SELFPAY ==
--- NOTE | ~2024-03-21 | US_ITS ---
US abdomen complete EXAMINATION: US Abdomen Complete INDICATION: Right upper quadrant pain. Abnormal liver function tests. PROCEDURE: Realtime High Resolution abdomen ultrasound. COMPARISON: CT dated 12/02/2018 FINDINGS: Gallbladder is surgically absent. Common bile duct measures 6 mm. Liver echotexture is diffusely increased, consistent with fatty infiltration.. Pancreas within jose l limits. Pancreatic tail is obscured by bowel gas. Spleen is unremarkeable. Renal echotexture is w ithin normal limits bilaterally without hydronephrosis, contour deforming mass. There is an echogenic foci in the left kidney, suspicious for nonobstructing renal stone. Right kidney measures 14.1 cm. L eft kidney measures 13.8 cm. Visualized aspects of the aorta and IVC are within normal limits. Portal vein is patent. No sonograph ic Freed's sign indicated by the technologist. IMPRESSION: 1: Fatty infiltration of the liver. 2: Possible nonobstructing left nephrolithiasis. Reviewed, dictated and finalized at location [] [employer]
== END 2024-03-21 08:53 | disposition home or self-care (01) ==
PROVIDERS: PCP Nurse Practitioner; Visit Provider Advanced Practice Midwife
DX: K76.0 Fatty (change of) liver, not elsewhere classified (principal)
CPT/HCPCS: 76700

== ENCOUNTER 2024-06-18 12:43 | Outpatient (CLI) | payer BC, MEDICAID, SELFPAY ==
[2024-06-18 13:15] VITALS: BP 126/74; PULSE 118
[2024-06-18 13:29] LABS: Basophils Percent Auto 0.1 % (0.2-1.2); Eosinophils Percent Auto 0.3 % (0-4.4); Hematocrit 36.5 % (37.0-47.0); Hemoglobin 11.6 g/dL (12.0-15.0); Immature Granulocyte Absolute 0.04 K/mm3 (0.00-0.031); Immature Granulocyte Percent A 0.5 % (0-0.5); Lymphocytes Absolute Auto 0.91 K/mm3 (0.9-3.2); Lymphocytes Percent Auto 12.3 % (18.3-44.2); Mean Corpuscular HGB Conc 31.8 g/dl (32-36); Mean Corpuscular Hemoglobin 28.7 pg (26-34); Mean Corpuscular Volume 90.3 fl (80-100); Mean Platelet Volume 10.9 fl (7.4-10.4); Monocytes Absolute Auto 0.6 K/mm3 (0.1-0.6); Monocytes Percent Auto 8.5 % (2.6-8.5); Neutrophils Absolute Auto 5.8 K/mm3 (1.3-6.7); Neutrophils Percent Auto 78.3 % (45.5-73.1); Platelet Count Result 176 k/mm3 (150-375); Red Blood Count 4.04 M/mm3 (4.2-5.4); White Blood Count 7.4 K/mm3 (4.5-10.0)
[2024-06-18 13:30] VITALS: BP 117/76; PULSE 122
[2024-06-18 13:38] LABS: Add Urine Microscopic? YES; Appearance Urine Clear (Clear); Bacteria Urine Rare /hpf; Bilirubin Urine Negative (Negative); Blood Urine Negative (Negative); Color Urine Yellow (Yellow); Glucose Urine UA Negative (Negative); Ketones Urine Negative (Negative); Leukocyte Esterase Ur 1+ LEU/UL (Negative); Nitrate Urine Negative (Negative); Non Pathogenic Casts 0-2; Protein Urine 1+ mg/dL (Negative); RBC Urine 0-2 /hpf (0-2); Specific Grav Ur 1.023 (1.001-1.035); Squamous Epithelial Cell Urine Few /hpf (Few); Urobilinogen Urine 0.2 mg/dL (<2.0)
[2024-06-18 13:45] VITALS: BP 120/69; PULSE 117
[2024-06-18 13:46] LABS: Alanine Aminotransferase 114 U/L (6-35); Albumin Level 4.2 g/dL (3.5-5.1); Alkaline Phosphatase 98 U/L (38-126); Anion Gap 11 mmol/L (4-12); Aspartate Amino Transferase 129 U/L (14-36); Bilirubin,Total 0.5 mg/dL (0.2-1.3); Blood Urea Nitrogen 11 mg/dL (7-17); Carbon Dioxide 19 mmol/L (22-30); Chloride 105 mmol/L (98-107); Estimated Glomerular Filt Rate > 60; Glucose 90 mg/dL (65-110); Potassium 4.5 mmol/L (3.4-5.0); Sodium 135 mmol/L (137-145); Uric Acid 4.3 mg/dL (2.5-7.5)
[2024-06-18 14:00] VITALS: BP 119/68; PULSE 115
[2024-06-18 14:15] VITALS: BP 125/79; PULSE 121
[2024-06-18 14:30] VITALS: BP 119/73; PULSE 117
--- OUTSIDE RECORDS SUMMARY | 2024-06-18 14:44 | XMS_ITS | Data Portability ---
Author Organization [facility] [place] Address [address] [place] [address] Care Team Providers Care Crystal Slicer Name Role Phone NABIL SANTOS Primary Care Provider Assessment Encounter Date Assessment Date Assessment LastModified by Organization Details LastModified Time 06/13/2024 06/13/2024 Patient is _35__weeks . Discussed plan. Not available 06/13/2024 12:43:15 Plan of Treatment Reminders Order Date Submit Date Provider Last Modified By Organization Details Last Modified Time Details Appointments NST 2024 09:30A M NST SCHEDULE Not available Not available Not available U/S OB BPP 2024 10:00A M ULTRASOUND Not available Not available Not available OB ROUTINE 2024 10:30A M Ryanne Jenkins CNM Not available Not available Not available U/S OB BPP 2024 09:30A M ULTRASOUND Not available Not available Not available NST 2024 10:00A M NST SCHEDULE Not available Not available Not available OB ROUTINE 2024 10:30A M OWEN CORREIA MD Not available Not available Not available U/S OB BPP 2024 09:30A M ULTRASOUND Not available Not available Not available NST 2024 10:00A M NST SCHEDULE Not available Not available Not available OB ROUTINE 2024 10:30A M OWEN CORREIA MD Not available Not available Not available U/S OB BPP 2024 09:30A M ULTRASOUND Not available Not available Not available NST 2024 10:00A M NST SCHEDULE Not available Not available Not available OB ROUTINE 2024 10:30A M OWEN CORREIA MD Not available Not available Not available Lab None recorde d. Referral None recorde d. Procedures None recorde d. Surgeries None recorde d. Imaging US, obstetr ic, biophys ical profile + non-str ess test [address], [address], [place], [address], 06/13/2024 22:04:56 non-str ess test [email or web address] [facility] [place] [place] [address], [place], [address], 06/15/2024 00:29:08 US, obstetr ic, biophys ical profile + non-str ess test [address], [address], [place], [address], 06/06/2024 19:02:19 non-str ess test [address]24 [email or web address], [address], [place], [address], 06/06/2024 23:46:02 Medication Orders None recorde d. Patient TargetsNo targets recorded. Patient InstructionsNo instructions recorded. Reason for Referral None Reported. Results Created Date Observation Date Name Description Value Unit Range Abnormal Flag Note LastModifiedBy Organization Detail LastModifiedTime 05/11/1903/16/2024 non-s tress test No observ ation record ed. [address], [place], [address], 05/15/2024 15:46:42 05/31/19 25 05/29/2024 US, obste tric, follo w-up No observ ation record ed. [facility] [address] [facility], [place], [address], 06/07/2024 15:54:38 06/07/19 25 06/06/2024 US, obste tric, bioph ysica l profi le + non-s tress test No observ ation record ed. [email or web address] [place] [address], [place], [address], 06/06/2024 18:23:10 06/07/19 25 06/06/2024 US, obste tric, follo w-up No observ ation record ed. [email or web address] [address], [place], [address], 06/07/2024 15:54:01 06/07/19 25 06/06/2024 non-s tress test No observ ation record ed. [email or web address] [place] [address], [place], [address], 06/06/2024 19:15:13 06/07/19 25 06/06/2024 non-s tress test No observ ation record ed. [email or web address] [place] [address], [place], [address], 06/06/2024 19:20:12 06/14/19 25 06/13/2024 US, obste tric, bioph ysica l profi le + non-s tress test No observ ation record ed. [email or web address] [place] [address], [place], [address], 06/13/2024 18:31:15 06/14/19 25 06/13/2024 US, obste tric, bioph ysica l profi le + non-s tress test No observ ation record ed. [email or web address] [address], [place], [address], 06/13/2024 22:20:37 06/15/19 25 06/13/2024 non-s tress test No observ ation record ed. [email or web address] [place] [address], [place], [address], 06/14/2024 09:43:48 06/15/19 25 06/13/2024 non-s tress test No observ ation record ed. [email or web address] [place] [address], [place], [address], 06/14/2024 10:08:22 Result Notes None recorded. Problems Name Problem SNOMED Code Status Onset Date Resolution Date Notes Provider Name and Address Organization Details Recorded Time Pregnanc y detectio n examinat ion Completed 201703/25/2020 Encounte r for pregnanc y test, result positive ;Practic e ID: 0001 Jackie Oviedo MD [address], [place], [address], [facility] 10:33:48 Normal pregnanc y in multigra lupis [id number] Completed 201703/25/2020 Encounte r for suprvsn of normal pregnanc y, first trimeste r;Practi ce ID: 0001 Jackie Oviedo MD [address], [place], [address], [facility] 10:33:46 Antenata l screenin g Completed 201703/25/2020 Encounte r for other specifie d antenata l screenin g;Practi ce ID: 0001 Jackie Oviedo MD [address], [place], [address], [facility] 10:33:13 Pregnanc y test negative [id number] Completed 201703/25/2020 Encounte r for pregnanc y test, result negative ;Recorde d Elsewher e: No Locat ion: [facility] S ource: EHR Spike Machine Heater elmo: N Practi ce ID: 0001 Scott lable Time: 02:30:00 PM Jackie Oviedo MD [address], [place], [address], [facility] 10:34:03 Jaki ry postpart um mood disturba nce [id number] Completed 201703/25/2020 Postpart um mood disturba nce;Luis Alberto rded Elsewher e: No [facility] S ource: EHR Spike Machine Heater elmo: N Practi ce ID: 0001 Scott lable Time: 02:30:00 PM Jackie Oviedo MD [address], [place], [address], [facility] 10:34:32 Lochia finding Completed 201703/25/2020 Encounte r for routine postpart um follow-u p;Record ed Elsewher e: No [facility] S ource: EHR Spike Machine Heater elmo: N Practi ce ID: 0001 Scott lable Time: 02:30:00 PM Jackie Oviedo MD [address], [place], [address], [facility] 10:33:43 Blood leukocyt e number above referenc e range [id number] Completed 201703/25/2020 Elevated white blood cell count, unspecif ied;Luis Alberto rded Elsewher e: No [facility] S ource: EHR Spike Machine Heater elmo: N Practi ce ID: 0001 Scott lable Time: 11:30:00 AM Jackie Oviedo MD [address], [place], [address], [facility] 10:33:[address] Concept Completed 201703/25/2020 Encntr for routine child health exam w/o abnormal findings ;Recorde d Elsewher e: No Locat ion: [facility] S ource: EHR Spike Machine Heater elmo: N Practi ce ID: 0001 Scott lable Time: 10:15:00 AM Jackie Oviedo MD [address], [place], [address], [facility] 1 10:34:18 Syphilis test finding [id number] Completed 201703/25/2020 Encntr screen for infectio ns w sexl mode of transmis s;Record ed Elsewher e: No [facility] S ource: EHR Spike Machine Heater elmo: N Practi ce ID: 0001 Scott lable Time: 10:15:00 AM Jackie Oviedo MD [address], [place], [address], [facility] 10:34:27 Emotiona l state finding Completed 201703/25/2020 Anxiety depressi on;Recor ded Elsewher e: No Locat ion: [facility] S ource: EHR Spike Machine Heater elmo: N Practi ce ID: 0001 Scott lable Time: 11:15:00 AM Jackie Oviedo MD [address], [place], [address], [facility] 1 10:33:16 Infectio n screenin g Completed 201703/25/2020 Encounte r for screenin g for oth infec/pa rastc diseases ;Recorde d Elsewher e: No Locat ion: [facility] S ource: EHR Spike Machine Heater elmo: N Practi ce ID: 0001 Scott lable Time: 10:15:00 AM Jackie Oviedo MD [address], [place], [address], [facility] 1 10:33:34 Pregnanc y, childbir th and puerperi um finding Completed 201703/25/2020 Encounte r for supervis ion of normal 1st pregnanc y;Record ed Elsewher e: No Locat ion: [facility] S ource: EHR Spike Machine Heater elmo: N Cristhianti ce ID: 0001 Scott lable Time: 11:30:00 AM MD [address], [place], [address], [facility] 1 10:34:01 Large fetus [id number] Completed 201703/25/2020 Maternal care for excess growth, third trimeste r, unsp;Rec orded Elsewher e: No [facility] S ource: EHR Spike Machine Heater elmo: N Cristhianti ce ID: 0001 Scott lable Time: 11:00:00 AM MD [address], [place], [address], [facility] [address] 10:33:[address] Concept Completed 201703/25/2020 Encntr for practice architect exam (general ) (routine ) w/o abn findings ;Practic e ID: 0001 Jackie Oviedo MD [address], [place], [address], [facility] 1 10:34:20 Pregnanc y, childbir th and puerperi um finding Completed 201703/25/2020 Encntr for suprvsn of normal first preg, third trimeste r;Record ed Elsewher e: No Locat ion: [facility] S ource: EHR Spike Machine Heater elmo: N Cristhianti ce ID: 0001 Scott lable Time: 04:45:00 PM Jackie Oviedo MD [address], [place], [address], [facility] 1 10:34:08 Body mass index 30+ - obesity 090314462 Active 2017 Catrachita jane, [facility] 1 10:06:52 Urinary tract infectio us disease 53280239 Completed 201703/25/2020 Urinary tract infectio n, site not specifie d;Record ed Elsewher e: No Locat ion: Mary [facility] S ource: EHR Spike Machine Heater elmo: N Practi ce ID: 0001 Scott lable Time: 01:00:00 PM Jackie Oviedo MD [address], [place], [address], [facility] 10:34:34 Secondar y amenorrh ea 501786162 Completed 201703/25/2020 Secondar y amenorrh ea;Recor ded Elsewher e: No Locat ion: [facility] luis antonio [facility] S ource: EHR Spike Machine Heater elmo: N Practi ce ID: 0001 Scott lable Time: 10:15:00 AM Jackie Oviedo MD [address], [place], [address], [facility] 10:34:15 Gestatio n period, 36 weeks [id number] Completed 201703/25/2020 36 weeks gestatio n of pregnanc y;Record ed Elsewher e: No [facility] S ource: EHR Spike Machine Heater elmo: N Cristhianti ce ID: 0001 Scott lable Time: 11:00:00 AM Jackie Oviedo MD [address], [place], [address], [facility] 10:33:21 Procedur e Completed 201703/25/2020 Encounte r for checking , reinsert ion or removal of implanta ble subderma l contrace ptive;Re corded Elsewher e: No [facility] S ource: EHR Spike Machine Heater elmo: N Practi ce ID: 0001 Scott lable Time: 02:30:00 PM Jackie Oviedo MD [address], [place], [address], [facility] 10:34:[address] Concept Completed 201703/25/2020 Decrease d movement s, third trimeste r, unsp;Pra ctice ID: [address], [place], [address], [facility] 10:34:22 False labor at or after 37 complete d weeks of gestatio n [id number] Completed 201703/25/2020 False labor at or after 37 complete d weeks of gestatio n;Practi ce ID: 0001 Jackie Oviedo MD [address], [place], [address], [facility] 10:33:18 Gestatio n period, 38 weeks 45523603 Completed 201703/25/2020 38 weeks gestatio n of pregnanc y;Practi ce ID: 0001 Jackie Oviedo MD [address], [place], [address], [facility] 10:33:23 Lacerati on of female perineum Completed 201703/25/2020 Second degree perineal lacerati on during delivery ;Practic e ID: 0001 Jackie Oviedo MD [address], [place], [address], [facility] 10:33:37 Single live [id number] Completed 201703/25/2020 Single live ;Pr actice ID: 0001 Jackie Oviedo MD [address], [place], [address], [facility] 10:34:29 Gestatio n period, 39 weeks 98483513 Completed 201703/25/2020 39 weeks gestatio n of pregnanc y;Practi ce ID: [address], [place], [address], [facility] [address] 10:33:[address] Concept Completed 201703/25/2020 Encounte r for surveill ance of other contrace ptives;P ractice ID: 0001 Jackie Oviedo MD [address], [place], [address], [facility] 1 10:34:24 Pregnanc y 47053845 Completed 201908/01/2020 Nimisha Barnett null, [facility] 4 11:35:14 Anxiety disorder 061733582 Completed Buspar Mary Bohnenstieh l null, [facility] 12:25:20 Obesity 504209942 Completed BMI - Antenata l testing at 32 wks Mary Bohnenstieh l null, [facility] 12:25:20 Small head 628897100 Completed Mary Bohnenstieh l null, [facility] 12:25:20 Nausea and vomiting 51133738 Completed zofran Mary Bohnenstieh l null, [facility] 1 12:25:20 Pregnanc y 05783120 Active 2023 Nimisha Barnett null, [facility] 4 11:35:14 Pregnanc y-induce d hyperten jelly 63478940 Active HISTORIC LITTLE Camilo MD [address], [place], [address], [facility] 4 12:08:40 Large for gestatio n age fetus 439221547 Active HISTORIC LITTLE Camilo MD [address], [place], [address], [facility] 4 12:09:08 Placenta circumva llata 8914979 Active Phong Camilo MD [address], [place], [address], [facility] 4 22:05:54 Non-alco holic fatty liver disease Active transami nitis rec RUQ [facility] Radiolog y 03/21 @ 0900 [facility] referall in 1-2 weeks faxed 03/16 labs drawn at hospital 24 hr urine in process Schedule d [facility] Chaparrita 04/04/24 0945 Level II US and Office visit Leann jane, [facility] 5 15:17:17 Tachycar sangita 4848267 Active MATERAL - cardiolo gy Phong Camilo MD [address], [place], [address], [facility] 5 11:12:10 Suspecte d macrosom ia 093442354 Active Greater than 99th percenti le Phong Camilo MD [address], [place], [address], [facility] 5 10:56:02 Female steriliz ation Active Phong Camilo MD [address], [place], [address], [facility] 5 10:56:20 Problem Notes None recorded. Procedures Surgical History Date Name Laterality Status Provider Name and Address Organization Details Recorded Time 024 Date of Last Pap Smear completed Nimisha Barnett [facility] 01/31/2024 11:33:36 021 Control Implant Removal completed Phong Camilo MD [address], [place], [address], [facility] 09/08/2020 20:58:00 021 Nexplanon Insert completed Emily Knight [facility] 09/03/2020 11:18:52 021 NST completed Jackie Oviedo MD [address], [place], [address], [facility] 07/07/2020 11:36:35 021 NST completed Jackie Oviedo MD [address], [place], [address], [facility] 06/16/2020 13:31:19 020 Control Implant Removal completed Bianka Prakash [facility]- [address], [place], [address], [facility] 10/30/2019 10:42:19 019 Appendectomy completed Anne Maynard [facility] 01/28/2020 15:21:38 018 Cholecystectomy completed Mariel Landrum [facility] 12/28/2019 14:44:10 procedure on heart completed Nimisha ramsey [facility] 01/31/2024 11:35:02 Imaging Results Imaging Date Name Status LastModified by Organiz ation Details LastModified Time 03/16/2024 non-stress test completed [address], [place], [address], 05/15/2024 15:46:42 05/29/2024 US, obstetric, follow-up active [email or web address] [facility] [address] [place], [address], 06/07/2024 15:54:38 06/06/2024 US, obstetric, biophysical profile + non-stress test completed [email or web address] [place] [address], [place], [address], 06/06/2024 18:23:10 06/06/2024 US, obstetric, follow-up completed [email or web address] [facility], [place], [address], 06/07/2024 15:54:01 06/06/2024 non-stress test completed [email or web address] [place] [address], [place], [address], 06/06/2024 19:15:13 06/06/2024 non-stress test completed [email or web address], [place], [address], 06/06/2024 19:20:12 06/13/2024 US, obstetric, biophysical profile + non-stress test completed [email or web address] [place] [address], [place], [address], 06/13/2024 18:31:15 06/13/2024 US, obstetric, biophysical profile + non-stress test completed [email or web address] [address], [facility], [place], [address], 06/13/2024 22:20:37 06/13/2024 non-stress test completed [address], [place], [address], 06/14/2024 09:43:48 06/13/2024 non-stress test completed [email or web address] [place] [address], [place], [address], 06/14/2024 10:08:22 Procedure Notes None recorded. Medical Equipment None Reported. Allergies Allergen ID Allergen Name Allergen Category Reaction Reaction Severity Criticality Documentation Date Start Date Code Code System Note Provider Name and Address Organization Details Recorded Time 2758 ketamine medicatio n Not available Not available Not available 01/28/2020 6130 RxNorm [facility] 15:26:20 Medications Name Sig Start Date Stop Date Status Note LastModified by Organization Details LastModified Time trazodone 50 mg tablet 0.5 TO 1 TABLET AT BEDTIME NEEDED ORALLY ONCE A DAY NEEDED FOR SLEEP INDUCTIO N 30 DAYS 01/30 completed Not Available Not Available Not Available ondansetr on 8 mg disintegr ating tablet DISSOLVE 1 TABLET ON THE TONGUE TWICE DAILY 06/30 completed Not Available Not Available Not Available Macrobid 100 mg capsule take 1 capsule by oral route every 12 hours with food 12/22 completed Prescrib ed Elsewher e: No Locat ion: [facility] odify By: [email or web address] abbasi DateTime : 11/01/19 18 01:00:00 PM Not Available Not Available Not Available propranol ol 40 mg tablet TAKE 1 TABLET BY MOUTH TWICE A DAY NEEDED FOR ANXIOUS DISTRESS 01/30 completed Not Available Not Available Not Available Zoloft 50 mg tablet take 1 tablet by oral route every day 04/21 completed Prescrib ed Elsewher e: No Locat ion: [facility] odify By: [email or web address] Tyree hall DateTime : 03/08/20 18 11:15:00 AM Not Available Not Available Not Available trazodone 100 mg tablet 1 TABLET NEEDED AT BEDTIME ORALLY ONCE A DAY NEEDED FOR SLEEP INDUCTIO N 30 DAYS 01/30 completed Not Available Not Available Not Available cephalexi n 500 mg capsule 01/30 completed Not Available Not Available Not Available sertralin e 25 mg tablet active Not Available Not Available Not Available mupirocin 2 % topical ointment APPLY TO EACH NOSTRIL DIRECTED THREE TIMES DAILY FOR 10 DAYS 01/30 completed Not Available Not Available Not Available ergocalci ferol (vitamin D2) 1,250 mcg (50,000 unit) capsule TAKE 1 CAPSULE BY MOUTH ONE TIME PER WEEK 01/30 completed Not Available Not Available Not Available Anusol-HC 25 mg rectal supposito ry insert 1 supposit ory by rectal route 2 times every day for 2 weeks 02/14 completed Prescrib ed Elsewher e: No Locat ion: [facility] odcesia By: grahamtanner Salmon ayleen DateTime : 02/02/20 02:30:00 PM Not Available Not Available Not Available albuterol sulfate HFA 90 mcg/actua tion aerosol inhaler INHALE 2 PUFFS BY MOUTH EVERY 4 HOURS NEEDED 01/30 completed Not Available Not Available Not Available Zoloft 100 mg tablet Take 1 tablet every day by oral route. 10/01 completed Not Available Not Available Not Available propranol ol 20 mg tablet 1 TABLET ORALLY TWICE A DAY NEEDED FOR ANXIOUS DISTRESS 30 DAYS 01/30 completed Not Available Not Available Not Available fluoxetin e 20 mg capsule TAKE 1 CAPSULE BY MOUTH EVERY DAY 01/30 completed Not Available Not Available Not Available amoxicill in 875 mg-potass ium clavulana te 125 mg tablet TAKE 1 TABLET EVERY 12 HOURS DAILY 01/30 completed Not Available Not Available Not Available buspirone 15 mg tablet TAKE 1 TABLET BY MOUTH TWICE A DAY 01/30 completed Not Available Not Available Not Available active Not Available Not Avai lable Not Available lurasidon e 40 mg tablet TAKE 1 TABLET BY MOUTH EVERY DAY IN THE EVENING WITH FOOD 01/30 completed Not Available Not Available Not Available Nexplanon 68 mg subdermal implant Inject 1 implant by subcutan eous route. 10/10 completed Not Available Not Available Not Available lurasidon e 20 mg tablet TAKE 1 TABLET BY MOUTH EVERY DAY IN THE EVENING WITH FOOD 01/30 completed Not Available Not Available Not Available lurasidon e 60 mg tablet TAKE 1 TABLET BY MOUTH EVERY DAY IN THE EVENING WITH FOOD active Not Available Not Available No t Available EluRyng 0.12 mg-0.015 mg/24 hr vaginal ring INSERT 1 RING VAGINALL Y FOR 3 WEEKS THEN REMOVE FOR 1 WEEK 01/30 completed Not Available Not Available Not Available Vitals Date Recorded Body height Body mass index (BMI) Body weight Body height Body mass index (BMI) Body weight Systolic blood pressure Diastolic blood pressure Systolic blood pressure Diastolic blood pressure Provider Name and Address Organization Details Last Updated DateTime 5 170.18 cm 49.5 kg/m2 761431. 19 g 170.18 cm 49.5 kg/m2 657525. 19 g 127 mm[Hg] 82 mm[Hg] 127 mm[Hg] 82 mm[Hg] Tavia Murray [facility] 5 19:13:40 Date Recorded Body height Body weight Body height Body mass index (BMI) Body weight Systolic blood pressure Diastolic blood pressure Systolic blood pressure Diastolic blood pressure Provider Name and Address Organization Details Last Updated DateTime 5 170.18 cm 756485. 22792 g 170.18 cm 49.8 kg/m2 917964. 37 g 127 mm[Hg] 81 mm[Hg] 127 mm[Hg] 81 mm[Hg] Tavia Murray [facility] 5 09:33:56 Social History Question Answer Notes LastModified by Organizat ion Details LastModified Time Tobacco Smoking Status Never Smoker Tara jane [facility] 06/16/2020 10:34:12 Do You Have An Advance Directive? No Information n ot available 05/19/2020 What Is Your Level Of Alcohol Consumption? None [email or web address] Information not available 12/31/2019 Are You Blind Or Do You Have Difficulty Seeing? No Information n ot available 05/19/2020 What Is Your Level Of Caffeine Consumption? None Information not available 05/19/2020 How Much Tobacco Do You Chew? None Information not available 05/19/2020 In The 14 Days Before Symptom Onset, Have You Had Close Contact With A Laboratory-confirm ed COVID-19 While That Case Was Ill? No Information n ot available 05/19/2020 In The 14 Days Before Symptom Onset, Have You Had Close Contact With A Person Who Is Under Investigation For COVID-19 While That Person Was Ill? No Information not available 05/19/2020 Have You Been To An Area Known To Be High Risk For COVID-19? No Information not available 05/19/2020 Are You Deaf Or Do You Have Serious Difficulty Hearing? No Information not available 05/19/2020 What Type Of Diet Are You Following? REGULAR Information n ot available 05/19/2020 What Is The Highest Grade Or Level Of School You Have Completed Or The Highest Degree You Have Received? [id number] Information not available 05/19/2020 Are There Any Guns Present In Your Home? Yes Information not available 05/19/2020 Do You Use Protection During Sex? No Information not available 05/19/2020 Do You Use Your Seat Belt Or Car Seat Routinely? Yes Information not available 05/19/2020 Are You Sexually Active? Yes [email or web address] Information not available 05/23/2024 Do You Have Smoke And Carbon Monoxide Detectors In Your Home? Yes Information not available 05/19/2020 How Much Tobacco Do You Smoke? No Information not available 05/19/2020 Do You Feel Stressed (tense, Restless, Nervous, Or Anxious, Or Unable To Sleep At Night)? [id number] Information not available 05/19/2020 Do You Use Any Illicit Or Recreational Drugs? No Information not available 05/19/2020 Do You Use Sunscreen Routinely? No Information not available 05/19/2020 Have You Used IV Drugs? No Information not available 05/19/2020 Sex: Unknown Functional Status Question Answer Note LastModified by Organizat ion Details LastModified Time Do you have difficulty walking or climbing stairs? No [email or web address] Information not available 05/23/2024 Are you able to walk? [email or web address] Information not available 05/19/2020 Are you able to care for yourself? Yes [email or web address] Information not available 05/23/2024 Do you have difficulty dressing or bathing? No [email or web address] Information not available 05/23/2024 What is your exercise level? Occasional Information not available 05/19/2020 Mental Status None recorded. Family History Relationship Description Onset Age of this Age Resolved Age Notes LastModified by Organization Details LastModified Time Mother Anemia [email or web address] Not available 16:47:56 Maternal Grandmother Diabetes mellitus [email or web address] Not available 2019 16:48:09 Maternal Grandmother Infertile [email or web address] Not available 07/2020 10:34:11 Paternal Grandmother Diabetes mellitus [email or web address] Not available 2019 16:48:09 Paternal Grandfather Heart disease [email or web address] Not available 2019 16:48:26 Paternal Aunt Carcinoma in situ of breast [email or web address] Not available 2020 10:34:11 Medical History Condition Response Allergies (Food, seasonal, environmental ) N Other N Breast Cancer N Drug/Latex Allergies/Reactions N Blood Transfusion N Dermatologic Disorders N Lung Disease N Defects or Inherited Disease N Breast Problem N Gestational Diabetes N Hematologic disorders N Anesthesia Complications N History of STI N Deep Vein Thrombosis N Polycystic ovary syndrome N Anxiety Disorder Y Autoimmune disease N Arthritis N Infertility N Polyps N Acid Reflux (GERD) N History of abnormal pap N Cancer N Stroke N Varicosities N Neurologic/Epilepsy N Endometriosis N High Cholesterol N Headaches N Fibromyalgia N Kidney Disease N Heart Problems N Kidney or Bladder Problems N Thyroid Problems N GI Problems N Eating Disorder N Anemia N Art (IVF or FET) N Psychiatric Illness N Ovarian Cancer N Diabetes N Pulmonary (TB, Asthma) N Hepatitis/Liver Disease N Eczema N Urinary Tract Infection N Abuse/Domestic Violence N Asthma N Trauma/Violence N Depression/ depression N Heart Disease N Pre-Eclampsia N Hypertension N Osteoporosis N Thrombophilias N Gynecological History Statement/Question Response Abnormal Pap N Flow Moderate Date of LMP 10/08/2023 On BCP's at Conception? N N Was last menstrual period normal Y STIs/STDs N HPV Vaccine N Duration of Flow (days) 4 Current Control Method Age at First Child 17 Are cycles usually normal Y Frequency of Cycle (Q days) 26 Sexually Active? Y Menses Monthly Y Age of first menstrual cycle 10 Date of Last Pap Smear 12/13/2023 Sexual Problems? Y LMP Definite N Obstetrics History GPAL:G 3 P 2 0 0 2 Type Value Full Term 2 Living 2 Total 3 Past Encounters Encounter ID Performer Location Encounter Start Date Encounter Closed Date Diagnosis/Indication Diagnosis SNOMED-CT Code Diagnosis ICD10 Code Diagnosis Note [id number] [facility] [address] [address] 10/02/2019 11:13:52 10/02/2019 11:52:01 Gynecologic examination 55838744 Z01.419 Take Calcium with Vitamin D 1200mg daily if not receiving in daily diet. It is strongly advised to have an annual flu shot and up can obtain at most pharmacies . If you have not had a TDap shot in the last 10 years you should obtain one as well. Discussed with patient & provided with informatio n regarding Gardisil vaccine to prevent the 4 strains for HPV that cause cervical cancer if under age 26. Encourage safe sexual practices, to use condoms and limit partners if not already in a monogamous relationsh ip. Do monthly self breast exams. Have mammogram yearly or every other year depending on family history. BRCA testing is now available for patients with strong genetic history of female cancer. If interested contact the office. Engage in daily exercise of low impact aerobic exercise 45-60 minutes 4-5 times weekly. Avoid tobacco and illicit drugs as well as using moderation with alcohol intake less than 1-2 8 oz beverages daily. This lifestyle behavior pattern will lead to less health conditions and longer life span. If BMI greater than 25 weight watchers or dietary consult advised. Patient received above instructio ns, and questions have been answered. If you have any questions please call or respond to this email. Patient was made aware of the patient portal and may obtain a paper copy of today's plan if desired. Pap done Wants nexplanon out. Will schedule. [id number] [facility]ash [facility] [address],[place] [address] 10/30/2019 10:08:11 10/30/2019 11:32:44 Removal of subcutaneous contraceptive 886384235 Z30.46 Removal site was cleansed with betadine tco1ldpl lidocaine used for anesthesia . Device was removed in normal fashion without difficulty . Steristips and pressure bandage placed.Con doms for control. [id number] Leslie Vaca [facility] [address],[place] [address] 12/31/2019 14:24:47 01/02/2020 11:46:10 [id number] Emily Knight [facility] [address],[place] [address] 12/31/2019 14:25:08 12/31/2019 17:46:32 test positive 849733665 Z32.01 Risk factors addressed: Tobacco Cessation, Safe Sexual Practices, environmen donita, work hazards, travel restrictio ns, seat belt use.Eat a health well balanced diet, avoid alcohol, tobacco, and street drugs. Engage in daily low impact exercise, avoid temperatur e extremes, and cat, rodent, and bird feces.Avoi d travel to areas where zika virus is a concern.Fi rst look offered to patient. First look accepted by patient and will be scheduled. Sequential Screen handout given and discussed with patient. ildbirth classes recommende d.New OB sheet given. If previous , counseling .Pt verbalizes that she understand s the importance of above instructio ns.All questions were answered. Patient reminded to have annual well woman examinatio n and address preventati ve healthcare . Severe anx iety (panic) 35603929 F41.0 Pt is calling psychiatri today to schedule visit. Discussed medication options at this time. Pt would like to start buspar while awaiting visit with psych. We went over risks and benefits. Specific dosing instructio ns given. No thoughts of harming herself or others. If any worsening of symptoms she will notify us right away. Pt taken off work x 2 weeks to allow for medication adjustment . [id number] [facility] [address],[place] [address] 01/28/2020 14:21:19 01/29/2020 12:22:45 screening 703968676 Z36.82 [id number] Phong Camilo MD [facility] [address],[place] [address] 01/28/2020 14:22:12 01/29/2020 12:24:11 Nausea and vomiting 44718885 R11.2 Routine an tenatal care 273048010 Z34.81 [id number] Jackie Oviedo MD [facility] [address],[place] [address] 02/25/2020 15:40:18 02/26/2020 15:25:28 Routine care 560111869 Z34.02 [id number] [facility] [address],[place] [address] 03/24/2020 15:39:50 03/24/2020 17:04:04 screening for malformation 371676867 Z36.3 [id number] Jackie Oviedo MD [facility] [address],[place] [address] 03/24/2020 15:40:17 03/25/2020 14:23:29 Routine care 870468287 Z34.02 Maternal o besity complicating , childbirth and the puerperium, antepartum 8543902803 07 O99.212 [id number] Phong Camilo MD [facility] [address],[place] [address] 04/21/2020 11:02:04 04/21/2020 12:03:10 Routine care 560423354 Z34.81 [id number] Monica Badillo [facility] [address],[place] [address] 04/21/2020 11:03:13 04/21/2020 11:54:32 screening 650420958 Z36.2 [id number] [facility] [address],[place] [address] 05/19/2020 13:56:34 05/19/2020 14:54:57 condition affecting obstetrical care of mother 845700404 O35.0XX0 Z3A.28 [id number] Phong Camilo MD [facility] [address],[place] [address] 05/19/2020 13:57:29 05/19/2020 15:49:04 Routine care 416045407 Z34.81 [id number] Phong Camilo MD [facility] [address],[place] [address] 06/02/2020 12:42:42 06/03/2020 22:30:30 Routine care 054542598 Z34.81 [id number] Alley Akhtar [facility] [address],[place] [address] 06/16/2020 10:34:06 06/16/2020 11:28:34 Maternal obesity complicating , childbirth and the puerperium, antepartum 1573157120 07 O99.213 [id number] [facility] [address],[place] [address] 06/16/2020 10:34:23 06/16/2020 12:30:16 Maternal obesity complicating , childbirth and the puerperium, antepartum 6812125830 07 O99.210 O36.8330 Z3A.32 [id number] Jackie Oviedo MD [facility] [address],[place] [address] 06/16/2020 10:35:00 06/16/2020 14:40:28 Maternal obesity complicating , childbirth and the puerperium, antepartum 9621555913 07 O99.212 Anxiety in 651 8073923 9109 F41.9 [id number] Mary Bautista [facility] [address],[place] [address] 06/19/2020 11:30:59 06/19/2020 12:41:36 Maternal obesity complicating , childbirth and the puerperium, antepartum 3700525697 07 O99.213 [id number] Monica Badillo [facility] [address],[place] [address] 06/19/2020 12:02:37 06/19/2020 12:42:40 condition affecting obstetrical care of mother 076837758 O36.8330 Z3A.32 [id number] Emily Knight [facility] [address],[place] [address] 06/23/2020 10:30:25 06/23/2020 11:42:13 Routine care 656076628 Z34.93 [id number] Mary Bautista [facility] [address],[place] [address] 06/23/2020 10:30:09 06/23/2020 11:44:32 Maternal obesity complicating , childbirth and the puerperium, antepartum 5203826792 07 O99.213 [id number] [facility] [address],[place] [address] 06/23/2020 11:24:44 06/23/2020 12:21:44 Abnormal heart rate 422604889 O36.8330 Z3A.33 [id number] Mary Bautista [facility] [address],[place] [address] 06/26/2020 11:34:19 06/26/2020 12:10:03 Maternal obesity complicating , childbirth and the puerperium, antepartum 2112190197 07 O99.213 [id number] Dia Jones [facility] [address],[place] [address] 06/26/2020 11:59:12 06/26/2020 13:21:24 condition affecting obstetrical care of mother 170851336 O36.8330 [id number] Emily Knight [facility] [address],[place] [address] 06/30/2020 10:38:59 06/30/2020 11:39:46 Routine care 477948437 Z34.93 - induced hypertension 79612860 O13.9 [id number] Mary Bautista [place] [address] [address] 06/30/2020 10:38:05 06/30/2020 13:41:48 Maternal obesity complicating , childbirth and the puerperium, antepartum 6262833786 07 O99.213 [id number] Mary Bautista [facility] [address],[place] [address] 07/03/2020 11:28:53 07/03/2020 12:23:42 Maternal obesity complicating , childbirth and the puerperium, antepartum 3993573529 07 O99.213 [id number] Monica Badillo [facility] [address] [place] [address] 07/03/2020 12:12:14 07/03/2020 12:30:43 AND/OR placental disorder affecting management of mother 83726110 O36.8330 Z3A.34 [id number] Mary Bautista [facility] [address],[place] [address] 07/07/2020 10:29:05 07/07/2020 11:40:19 Maternal obesity complicating , childbirth and the puerperium, antepartum 0507296256 07 O99.213 [id number] Jackie Oviedo MD [facility] [address],[place] [address] 07/07/2020 10:30:06 07/07/2020 11:39:52 Maternal obesity complicating , childbirth and the puerperium, antepartum 7526150994 07 O99.213 [id number] Mary Bautista [facility] [address],[place] [address] 07/10/2020 11:31:04 07/10/2020 12:35:46 Maternal obesity complicating , childbirth and the puerperium, antepartum 5608716189 07 O99.213 [id number] Leslie Vaca [facility] [address],[place] [address] 07/10/2020 12:08:41 07/10/2020 12:36:09 Maternal obesity complicating , childbirth and the puerperium, antepartum 0296209960 07 O99.210 O36.8330 Z3A.35 [id number] Emily Knight [facility] [address],[place] [address] 07/14/2020 09:30:37 07/14/2020 10:51:48 Routine care 332800413 Z34.93 [id number] Mary Bautista [facility] [address],[place] [address] 07/14/2020 09:29:59 07/14/2020 12:15:35 Maternal obesity complicating , childbirth and the puerperium, antepartum 1231617958 07 O99.213 [id number] Monica Badillo [facility] [address],[place] [address] 07/14/2020 09:30:18 07/14/2020 10:53:19 condition affecting obstetrical care of mother 837518263 O36.8330 Z3A.36 [id number] [facility] [address],[place] [address] 07/17/2020 11:29:54 07/17/2020 12:31:51 Maternal obesity complicating , childbirth and the puerperium, antepartum 7080905221 07 O99.213 [id number] Monica Badillo [facility] [address],[place] [address] 07/17/2020 12:02:08 07/17/2020 12:53:17 condition affecting obstetrical care of mother 017322727 O36.8330 Z3A.36 [id number] [address] [address] 07/21/2020 10:27:21 07/21/2020 11:45:14 Routine care 221761926 Z34.93 [id number] [facility] [address],[place] [address] 07/21/2020 10:26:51 07/21/2020 11:44:01 Maternal obesity complicating , childbirth and the puerperium, antepartum 5758415504 07 O99.213 [id number] Dia Jones [facility] [address],[place] [address] 07/21/2020 11:14:31 07/21/2020 12:30:02 condition affecting obstetrical care of mother 788230114 O36.8330 [id number] [facility] [address],[place] [address] 07/24/2020 11:31:47 07/24/2020 14:10:39 Maternal obesity complicating , childbirth and the puerperium, antepartum 5674894742 07 O99.213 [id number] [facility] [address],[place] [address] 07/24/2020 11:59:29 07/24/2020 12:52:33 Abnormal heart rate 165471067 O36.8330 Z3A.37 [id number] [facility] [address],[place] [address] 07/28/2020 15:08:34 07/28/2020 16:51:47 Routine care 493623310 Z34.93 [id number] M Nelli [facility] [address],[place] [address] 07/28/2020 15:01:18 07/28/2020 15:44:49 Maternal obesity complicating , childbirth and the puerperium, antepartum 7769952916 07 O99.213 [id number] Moniac Badillo [facility] [address],[place] [address] 07/28/2020 15:48:08 07/29/2020 21:56:23 condition affecting obstetrical care of mother 138778336 O36.8330 Z3A.38 [id number] [facility] [address],[place] [address] 08/04/2020 11:29:49 08/04/2020 16:44:14 -induced hypertension 19239639 O13.9 Doing well. PIH precaution s given. RTC for routine post or sooner if any problems/c oncerns. [id number] Emilynikia Dhillonroman [facility] [address],[place] [address] 2020 17:30:40 09/02/2020 15:33:20 state 63910562 Z39.2 Continue to watch for signs/symp toms of post depression . Return one year from last pap smear for a well woman exam. Patient received above instructio ns, and questions have been answered. If you have any questions please call or respond to this email. Patient was made aware of the patient portal and may obtain a paper copy of today's plan if desired Contracept ion care management 508616681 Z30.9 Pt desires nexplanon. She has not resumed intercours e. Will check hcg today and return in 1-2 days for insertion. Explained importance of continued abstinence . [id number] Emily Knight [facility] [address],[place] [address] 09/03/2020 10:47:11 09/03/2020 11:21:40 Contraception care management 373247446 Z30.9 RTC in 1 month for annual and med check or sooner if any problems or concerns. [id number] Phong Camilo MD [facility] [address],[place] [address] 09/08/2020 11:59:29 09/08/2020 20:58:45 Contraception care management 513801544 Z30.9 Nexplanon was removed. There was some purulent watery fluid that egressed from the incision. The infected area. To improve almost immediatel y. She is on antibiotic s that was given to her by her primary care doctor. She was instructed to take those antibiotic s. She will be seen tomorrow [id number] Phong Camilo MD [facility] [address],[place] [address] 09/09/2020 13:54:14 09/09/2020 22:55:27 Contraception care management 468417847 Z30.9 this patient is a 20-year-ol d female who had an infected the Nexplanon. It was inserted about a week ago. She returns today after removal of the Nexplanon yesterday. The pain is much better the patient states. The induration and erythema is improved. There is still some significan t induration . She will continue antibiotic s. She will return in 1 week. [id number] Emily Knight [facility] [address],[place] [address] 10/13/2020 11:00:08 10/13/2020 14:14:04 Gynecologic examination 95658171 Z01.419 Z11.3 Z11.8 Take Calcium with Vitamin D 1200mg daily if not receiving in daily diet. It is strongly advised to have an annual flu shot and up can obtain at most pharmacies . If you have not had a TDap shot in the last 10 years you should obtain one as well. Discussed with patient & provided with informatio n regarding Gardisil vaccine to prevent the 4 strains for HPV that cause cervical cancer if under age 26. Encourage safe sexual practices, to use condoms and limit partners if not already in a monogamous relationsh ip. Do monthly self breast exams. Have mammogram yearly or every other year depending on family history. BRCA testing is now available for patients with strong genetic history of female cancer. If interested contact the office. Engage in daily exercise of low impact aerobic exercise 45-60 minutes 4-5 times weekly. Avoid tobacco and illicit drugs as well as using moderation with alcohol intake less than 1-2 8 oz beverages daily. This lifestyle behavior pattern will lead to less health conditions and longer life span. If BMI greater than 25 weight watchers or dietary consult advised.Cheung ppy with nuvaring and would like to continue. Considerin g gastric sleeve. Encouraged counseling prior. Pt already has appt scheduled tomorrow. Patient received above instructio ns, and questions have been answered. If you have any questions please call or respond to this email. Patient was made aware of the patient portal and may obtain a paper copy of today's plan if desired. [id number] [facility] [address],[place] [address] 01/31/2024 10:28:35 01/31/2024 11:17:51 screening 453143516 Z36.87 Z3A.16 [id number] Phong Camilo MD [facility] [address],[place] [address] 01/31/2024 10:29:25 01/31/2024 12:22:13 Routine care 805754033 Z34.81 [id number] Monica Badillo [facility] [address],[place] [address] 02/28/2024 10:27:01 02/28/2024 11:47:33 screening for malformation 402845669 Z36.3 Z3A.20 [id number] WOEN CORREIA MD [facility] [address],[place] [address] 02/28/2024 10:28:27 02/28/2024 13:33:56 Congenital septal defect of heart 20538160 Q21.9 - maternal, repaired at delivery- will order pelvic US Gestation period, 20 weeks 46445823 Z3A.20 Maternal o besity complicating , childbirth and the puerperium, antepartum 8763490634 07 O99.212 - testing at 34 weeks [id number] Phong Camilo MD [facility] [address],[place] [address] 03/27/2024 10:28:50 03/27/2024 11:29:02 Routine care 946832058 Z34.81 [id number] Phong Camilo MD [facility] [address],[place] [address] 04/24/2024 10:30:36 04/24/2024 11:27:12 Routine care 749052465 Z34.81 [id number] Phong Camilo MD [facility] [address],[place] [address] 05/08/2024 10:04:13 05/08/2024 11:04:51 Routine care 082185095 Z34.81 [id number] OWEN CORREIA MD [facility] [address],[place] [address] 05/23/2024 12:45:59 05/23/2024 14:25:44 Maternal obesity complicating , childbirth and the puerperium, antepartum 0488055706 07 O99.212 - testing at 34 weeks Large for gestation age fetus 908871586 O36.63X0 Non-alcoho lic fatty liver 502803020 K76.0 Placenta circumvallata 6784193 O43.119 Gestation period, 32 weeks 8124202 Z3A.32 [id number] Tavia Murray [facility] [address],[place] [address] 06/06/2024 14:29:05 06/07/2024 03:54:11 Maternal obesity complicating , childbirth and the puerperium, antepartum 0587645207 07 O99.213 [id number] Monica Badillo [facility] [address],[place] [address] 06/06/2024 14:30:20 06/06/2024 16:04:02 -induced hypertension 41408816 O13.3 Z3A.34 [id number] Ryanne Jenkins CNM [facility] [address],[place] [address] 06/06/2024 14:30:44 06/06/2024 16:57:36 Gestation period, 34 weeks 11590510 Z3A.34 [id number] Tavia Milestz [facility] [address],[place] [address] 06/13/2024 11:13:18 06/14/2024 09:59:55 Maternal obesity complicating , childbirth and the puerperium, antepartum 0941770461 07 O99.213 [id number] Monica Badillo [facility] [address],[place] [address] 06/13/2024 11:13:47 06/13/2024 12:19:02 Maternal obesity complicating , childbirth and the puerperium, antepartum 2316120639 07 O99.213 O13.3 Z3A.35 [id number] Ryanne Jenkins [facility] [address],[place] [address] 06/13/2024 11:14:03 06/13/2024 12:43:55 Gestation period, 35 weeks 46898220 Z3A.35 Health Concerns Section Related Observation LastModified by Organization Detai ls LastModified Time None Recorded Concern Status LastModified by Organization Details LastModified Time None Recorded Advance Directives Directive N: Payers Encounter Date Sequence Insurance Name Policy Number Policy Ramos Covered Member ID Ramos Member ID Guarantor Name 06/06/2024 2 [place] [employer] Melton N Sheila [id number] Melton N Frazier 06/06/2024 1 [place] [id number] Velma Baez [id number] Melton N Frazier 06/06/2024 2 [place] Melton N Sheila [id number] Melton N Frazier 06/06/2024 1 [place] [id number] Velma Baez [id number] Mel[place] N [place] 06/13/2024 2 [place] [facility] [place] [place] Melton N Sheila [id number] Melton N Frazier 06/13/2024 1 [place] [id number] Velma Baez [id number] Mel[place] N [place] 06/13/2024 2 [place] [employer] [place] Linh Mooneyy [id number] Mel[address] N Frazier 06/13/2024 1 [place] [id number] Velma Baez [id number] 06/13/2024 2 [place] [facility] Melton N Sheila [id number] Melton N Frazier 06/13/2024 1 [place] [id number] Velma Baez [id number] OBGyn Episode Ob Episode Information Episode Created Date Number of Fetuses Patient Bloodtype Patient rh Status Prepregnancy Weight lbs Domestic Partner Domestic Partner Phone 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 Status 12/28/19 20 1 CLOSED Fetus Data First Name Last Name Admitted to NICU Weight (g) Sex Living Outcome Pediatric Complications Fetus ID Race Codes Race Delivery Type 4167.14 [id number] Full Term 5399 Vaginal Delivery Maximino Calculation Initial Maximino Date Initial Exam Date Initial Exam Provider Initial Ultrasound Date Last Menstrual Period Date Ultra Sound Weeks Gestation 0 Eighteen To Twenty Week Maximino Update Ultra Sound Date Fundal Height At Umbil Quickening Date Ultra Sound Latest Weeks Gestation Final Maximino Confirmed By Final Maximino Confirmed Date Final Maximino Date Ultra Sound Latest Days Gestation 0 0 Menstrual History Last Menstrual Date Menses Monthly On Bcp Conception Prior Menses Frequency Hcg Plus Date Menarche Onset Age Delivery Information Delivery Date Delivery Type Labor Anesthesia Weeks Gestation Incision Type Labor Labor Length Hrs Delivered By Post Complications Tubal Sterilization Discharge Date Comments 8 39 Discharge Information Feeding Method Contraceptive Method Maternal HG B and HCT Levels Ob Episode Information Episode Created Date Number of Fetuses Patient Bloodtype Patient rh Status Prepregnancy Weight lbs Domestic Partner Domestic Partner Phone 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 Status 01/28/20 20 1 A Positive 266 CLOSED Fetus Data First Name Last Name Admitted to NICU Weight (g) Sex Living Outcome Pediatric Complications Fetus ID Race Codes Race Delivery Type 2806.60 05 M true Full Term terminal meconium 6172 Vaginal Delivery Problems Problem Notes took bp 07/17/20 118/78 Problem Name Start Date End Date Resolution Snomed Code Not e Anxiety disorder [id number] Bus par Obesity [id number] BMI - Ante nahid testing at 32 wks Nausea and vomiting MEDICATION [id number] zofran Small head [id number] Maximino Calculation Initial Maximino Date Initial Exam Date Initial Exam Provider Initial Ultrasound Date Last Menstrual Period Date Ultra Sound Weeks Gestation 08/09/2020 01/28/2020 12/31/2019 11/03/2019 8 Eighteen To Twenty Week Maximino Update Ultra Sound Date Fundal Height At Umbil Quickening Date Ultra Sound Latest Weeks Gestation Final Maximino Confirmed By Final Maximino Confirmed Date Final Maximino Date Ultra Sound Latest Days Gestation 0 [email or web address] 01/28/2020 08/10/19 21 0 Pre-nahid Flowsheet Flowsheet Date 12/31/2019 Ro Score Blood Edema Fundus Height Fundus Units Glucose Ketones Leukocytes Nitrite Labor Signs Protein Cervic Dilation Cervic Effacement Cervic Station Type Weight in lbs Pre/Post Dialysis Refused BP Diastolic BP Location Tested BP Systolic BP Type Fetus Heart Rate Present Fetus Movement Comments Flowsheet Date 01/28/2020 Ro Score Blood Edema Fundus Height Fundus Units Glucose Ketones Leukocytes Nitrite Labor Signs Protein Cervic Dilation Cervic Effacement Cervic Station 12 Type Weight in lbs Pre/Post Dialysis Refused Weight 263.735816680375 BP Diastolic BP Location Tested BP Systolic BP Type 81 L arm 115 sitting Fetus Heart Rate Present A 145 Fetus Movement Comments this patient is a 19-year-ol d 2 para 03/23/2011 weeks gestation who presents for initial care. She has some nausea and vomiting. , otherwise she got her labs drawn today. She had a normal genetic screening ultrasound. To begin routine care. To prescribe Zofran. Flowsheet Date 02/25/2020 Ro Score Blood Edema Fundus Height Fundus Units Glucose Ketones Leukocytes Nitrite Labor Signs Protein Cervic Dilation Cervic Effacement Cervic Station neg none trace Type Weight in lbs Pre/Post Dialysis Refused Weight 255.597333097385 BP Diastolic BP Location Tested BP Systolic BP Type 82 123 Fetus Heart Rate Present A 160 Fetus Movement A No Comments Still not feeling well. vanita ng zofran once a day. Usually by pm feels better. Thought she had her blood drawn for sequential, but now declines as nuchal was normal and almost to anatomy US. Flowsheet Date 03/24/2020 Ro Score Blood Edema Fundus Height Fundus Units Glucose Ketones Leukocytes Nitrite Labor Signs Protein Cervic Dilation Cervic Effacement Cervic Station Type Weight in lbs Pre/Post Dialysis Refused BP Diastolic BP Location Tested BP Systolic BP Type Fetus Heart Rate Present Fetus Movement Comments Flowsheet Date 03/24/2020 Ro Score Blood Edema Fundus Height Fundus Units Glucose Ketones Leukocytes Nitrite Labor Signs Protein Cervic Dilation Cervic Effacement Cervic Station neg none 22 trace Type Weight in lbs Pre/Post Dialysis Refused Weight 254.443297056943 BP Diastolic BP Location Tested BP Systolic BP Type 76 110 Fetus Heart Rate Present A 140 Fetus Movement A Yes Comments Doing well, feeling better. Will do CF/SMA today. Anatomy US today complete and wnl except suboptimal heart and renal arteries, will complete next visit. Flowsheet Date 04/21/2020 Ro Score Blood Edema Fundus Height Fundus Units Glucose Ketones Leukocytes Nitrite Labor Signs Protein Cervic Dilation Cervic Effacement Cervic Station Type Weight in lbs Pre/Post Dialysis Refused BP Diastolic BP Location Tested BP Systolic BP Type Fetus Heart Rate Present Fetus Movement Comments Flowsheet Date 04/21/2020 Ro Score Blood Edema Fundus Height Fundus Units Glucose Ketones Leukocytes Nitrite Labor Signs Protein Cervic Dilation Cervic Effacement Cervic Station 28 trace Type Weight in lbs Pre/Post Dialysis Refused Weight 263.584226144900 BP Diastolic BP Location Tested BP Systolic BP Type 82 R arm 119 sitting Fetus Heart Rate Present A 150 Fetus Movement A Yes Comments small head measurements, to repeat in 4 weeks Flowsheet Date 05/19/2020 Ro Score Blood Edema Fundus Height Fundus Units Glucose Ketones Leukocytes Nitrite Labor Signs Protein Cervic Dilation Cervic Effacement Cervic Station Type Weight in lbs Pre/Post Dialysis Refused BP Diastolic BP Location Tested BP Systolic BP Type Fetus Heart Rate Present Fetus Movement Comments Flowsheet Date 05/19/2020 Ro Score Blood Edema Fundus Height Fundus Units Glucose Ketones Leukocytes Nitrite Labor Signs Protein Cervic Dilation Cervic Effacement Cervic Station 32 trace Type Weight in lbs Pre/Post Dialysis Refused Weight 263.036620516026 BP Diastolic BP Location Tested BP Systolic BP Type 83 R arm 138 sitting Fetus Heart Rate Present A 150 Fetus Movement A Yes Comments discussed her anxiety, she d iscontinued her medications, she is doing reasonably well, will continue to observe. Discussed her testing, it is based on a BMI of 41. Flowsheet Date 06/02/2020 Ro Score Blood Edema Fundus Height Fundus Units Glucose Ketones Leukocytes Nitrite Labor Signs Protein Cervic Dilation Cervic Effacement Cervic Station 30 Type Weight in lbs Pre/Post Dialysis Refused Weight 263.134404352248 BP Diastolic BP Location Tested BP Systolic BP Type 81 R arm 119 sitting Fetus Heart Rate Present A 145 Fetus Movement A Yes Comments anxiety stable, aware of ant enatal testing and serial growth scans Flowsheet Date 06/16/2020 Ro Score Blood Edema Fundus Height Fundus Units Glucose Ketones Leukocytes Nitrite Labor Signs Protein Cervic Dilation Cervic Effacement Cervic Station Type Weight in lbs Pre/Post Dialysis Refused BP Diastolic BP Location Tested BP Systolic BP Type Fetus Heart Rate Present Fetus Movement Comments Flowsheet Date 06/16/2020 Ro Score Blood Edema Fundus Height Fundus Units Glucose Ketones Leukocytes Nitrite Labor Signs Protein Cervic Dilation Cervic Effacement Cervic Station Type Weight in lbs Pre/Post Dialysis Refused BP Diastolic BP Location Tested BP Systolic BP Type Fetus Heart Rate Present Fetus Movement Comments Flowsheet Date 06/16/2020 Ro Score Blood Edema Fundus Height Fundus Units Glucose Ketones Leukocytes Nitrite Labor Signs Protein Cervic Dilation Cervic Effacement Cervic Station neg none 36 trace Type Weight in lbs Pre/Post Dialysis Refused Weight 265.840238344750 BP Diastolic BP Location Tested BP Systolic BP Type 81 137 Fetus Heart Rate Present A 155 Fetus Movement A Yes Comments Doing very well. NST NR toda y, BPP 8/8. DIscussed, precautions given. Anxiety- off meds, is doing very well. EFW on US 41%, normal fluid. COntinue testing for obesity. Flowsheet Date 06/19/2020 Ro Score Blood Edema Fundus Height Fundus Units Glucose Ketones Leukocytes Nitrite Labor Signs Protein Cervic Dilation Cervic Effacement Cervic Station Type Weight in lbs Pre/Post Dialysis Refused BP Diastolic BP Location Tested BP Systolic BP Type Fetus Heart Rate Present Fetus Movement Comments Flowsheet Date 06/19/2020 Ro Score Blood Edema Fundus Height Fundus Units Glucose Ketones Leukocytes Nitrite Labor Signs Protein Cervic Dilation Cervic Effacement Cervic Station Type Weight in lbs Pre/Post Dialysis Refused BP Diastolic BP Location Tested BP Systolic BP Type Fetus Heart Rate Present Fetus Movement Comments Flowsheet Date 06/23/2020 Ro Score Blood Edema Fundus Height Fundus Units Glucose Ketones Leukocytes Nitrite Labor Signs Protein Cervic Dilation Cervic Effacement Cervic Station Type Weight in lbs Pre/Post Dialysis Refused BP Diastolic BP Location Tested BP Systolic BP Type Fetus Heart Rate Present Fetus Movement Comments Flowsheet Date 06/23/2020 Ro Score Blood Edema Fundus Height Fundus Units Glucose Ketones Leukocytes Nitrite Labor Signs Protein Cervic Dilation Cervic Effacement Cervic Station none 37 Type Weight in lbs Pre/Post Dialysis Refused Weight 266.496420590161 BP Diastolic BP Location Tested BP Systolic BP Type 74 113 Fetus Heart Rate Present Fetus Movement A Yes Comments Doing well. Pre admit schedu led. NST and u/s to follow. Flowsheet Date 06/23/2020 Ro Score Blood Edema Fundus Height Fundus Units Glucose Ketones Leukocytes Nitrite Labor Signs Protein Cervic Dilation Cervic Effacement Cervic Station Type Weight in lbs Pre/Post Dialysis Refused BP Diastolic BP Location Tested BP Systolic BP Type Fetus Heart Rate Present Fetus Movement Comments Flowsheet Date 06/26/2020 Ro Score Blood Edema Fundus Height Fundus Units Glucose Ketones Leukocytes Nitrite Labor Signs Protein Cervic Dilation Cervic Effacement Cervic Station Type Weight in lbs Pre/Post Dialysis Refused BP Diastolic BP Location Tested BP Systolic BP Type Fetus Heart Rate Present Fetus Movement Comments Flowsheet Date 06/26/2020 Ro Score Blood Edema Fundus Height Fundus Units Glucose Ketones Leukocytes Nitrite Labor Signs Protein Cervic Dilation Cervic Effacement Cervic Station Type Weight in lbs Pre/Post Dialysis Refused BP Diastolic BP Location Tested BP Systolic BP Type Fetus Heart Rate Present Fetus Movement Comments Flowsheet Date 06/30/2020 Ro Score Blood Edema Fundus Height Fundus Units Glucose Ketones Leukocytes Nitrite Labor Signs Protein Cervic Dilation Cervic Effacement Cervic Station Type Weight in lbs Pre/Post Dialysis Refused BP Diastolic BP Location Tested BP Systolic BP Type Fetus Heart Rate Present Fetus Movement Comments Flowsheet Date 06/30/2020 Ro Score Blood Edema Fundus Height Fundus Units Glucose Ketones Leukocytes Nitrite Labor Signs Protein Cervic Dilation Cervic Effacement Cervic Station none 34 trace Type Weight in lbs Pre/Post Dialysis Refused Weight 268.452171889005 BP Diastolic BP Location Tested BP Systolic BP Type 98 134 Fetus Heart Rate Present Fetus Movement A Yes Comments Doing well. BP is elevated t estuardo. Denies h/a, v/d, or e/p. Will check labs today. PIH precautions given. Flowsheet Date 07/03/2020 Ro Score Blood Edema Fundus Height Fundus Units Glucose Ketones Leukocytes Nitrite Labor Signs Protein Cervic Dilation Cervic Effacement Cervic Station Type Weight in lbs Pre/Post Dialysis Refused BP Diastolic BP Location Tested BP Systolic BP Type Fetus Heart Rate Present Fetus Movement Comments Flowsheet Date 07/03/2020 Ro Score Blood Edema Fundus Height Fundus Units Glucose Ketones Leukocytes Nitrite Labor Signs Protein Cervic Dilation Cervic Effacement Cervic Station Type Weight in lbs Pre/Post Dialysis Refused BP Diastolic BP Location Tested BP Systolic BP Type Fetus Heart Rate Present Fetus Movement Comments Flowsheet Date 07/07/2020 Ro Score Blood Edema Fundus Height Fundus Units Glucose Ketones Leukocytes Nitrite Labor Signs Protein Cervic Dilation Cervic Effacement Cervic Station Type Weight in lbs Pre/Post Dialysis Refused BP Diastolic BP Location Tested BP Systolic BP Type Fetus Heart Rate Present Fetus Movement Comments Flowsheet Date 07/07/2020 Ro Score Blood Edema Fundus Height Fundus Units Glucose Ketones Leukocytes Nitrite Labor Signs Protein Cervic Dilation Cervic Effacement Cervic Station neg trace neg Type Weight in lbs Pre/Post Dialysis Refused Weight 274.139134465194 BP Diastolic BP Location Tested BP Systolic BP Type 83 119 Fetus Heart Rate Present Fetus Movement A Yes Comments DOing well. BP normal today. LFTs were mildly elevated with PIH labs last visit, will recheck next week. She is aware of possible 37-38 week IOL for PIH, and is not wanting to do this unless necessary. We will continue to evaluate what her BPs do. No CHEUNG/BV/Ep. Has had a couple dizzy spells. NST reactive. GBS next, discussed. Flowsheet Date 07/10/2020 Ro Score Blood Edema Fundus Height Fundus Units Glucose Ketones Leukocytes Nitrite Labor Signs Protein Cervic Dilation Cervic Effacement Cervic Station Type Weight in lbs Pre/Post Dialysis Refused BP Diastolic BP Location Tested BP Systolic BP Type Fetus Heart Rate Present Fetus Movement Comments Flowsheet Date 07/10/2020 Ro Score Blood Edema Fundus Height Fundus Units Glucose Ketones Leukocytes Nitrite Labor Signs Protein Cervic Dilation Cervic Effacement Cervic Station Type Weight in lbs Pre/Post Dialysis Refused BP Diastolic BP Location Tested BP Systolic BP Type Fetus Heart Rate Present Fetus Movement Comments Flowsheet Date 07/14/2020 Ro Score Blood Edema Fundus Height Fundus Units Glucose Ketones Leukocytes Nitrite Labor Signs Protein Cervic Dilation Cervic Effacement Cervic Station Type Weight in lbs Pre/Post Dialysis Refused BP Diastolic BP Location Tested BP Systolic BP Type Fetus Heart Rate Present Fetus Movement Comments Flowsheet Date 07/14/2020 Ro Score Blood Edema Fundus Height Fundus Units Glucose Ketones Leukocytes Nitrite Labor Signs Protein Cervic Dilation Cervic Effacement Cervic Station Type Weight in lbs Pre/Post Dialysis Refused BP Diastolic BP Location Tested BP Systolic BP Type Fetus Heart Rate Present Fetus Movement Comments Flowsheet Date 07/14/2020 Ro Score Blood Edema Fundus Height Fundus Units Glucose Ketones Leukocytes Nitrite Labor Signs Protein Cervic Dilation Cervic Effacement Cervic Station trace 40 trace Type Weight in lbs Pre/Post Dialysis Refused Weight 272.493491041737 BP Diastolic BP Location Tested BP Systolic BP Type 84 124 Fetus Heart Rate Present A 135 Fetus Movement A Yes Comments BP normal. No h/a, v/d, or e /p. Did have some elevated LFT's. Will repeat labs again today. Discussed PIH precautions in detail. Pt will notify us if any symptoms. Otherwise will monitor labs and bp and re-evaluate at each visit. Pt does not want induction unless absolutely necessary. Having a boy Bacilio . Size > dates. Growth u/s last week was appropriate. Visit per Z. Due SNM.* preferences: Does not want epis, delayed cord clamping, no internal monitors, wants to be mobile, no elective induction, skin to skin right away, .* Flowsheet Date 07/17/2020 Ro Score Blood Edema Fundus Height Fundus Units Glucose Ketones Leukocytes Nitrite Labor Signs Protein Cervic Dilation Cervic Effacement Cervic Station Type Weight in lbs Pre/Post Dialysis Refused BP Diastolic BP Location Tested BP Systolic BP Type Fetus Heart Rate Present Fetus Movement Comments Flowsheet Date 07/17/2020 Ro Score Blood Edema Fundus Height Fundus Units Glucose Ketones Leukocytes Nitrite Labor Signs Protein Cervic Dilation Cervic Effacement Cervic Station Type Weight in lbs Pre/Post Dialysis Refused BP Diastolic BP Location Tested BP Systolic BP Type Fetus Heart Rate Present Fetus Movement Comments Flowsheet Date 07/21/2020 Ro Score Blood Edema Fundus Height Fundus Units Glucose Ketones Leukocytes Nitrite Labor Signs Protein Cervic Dilation Cervic Effacement Cervic Station Type Weight in lbs Pre/Post Dialysis Refused BP Diastolic BP Location Tested BP Systolic BP Type Fetus Heart Rate Present Fetus Movement Comments Flowsheet Date 07/21/2020 Ro Score Blood Edema Fundus Height Fundus Units Glucose Ketones Leukocytes Nitrite Labor Signs Protein Cervic Dilation Cervic Effacement Cervic Station Type Weight in lbs Pre/Post Dialysis Refused BP Diastolic BP Location Tested BP Systolic BP Type Fetus Heart Rate Present Fetus Movement Comments Flowsheet Date 07/21/2020 Ro Score Blood Edema Fundus Height Fundus Units Glucose Ketones Leukocytes Nitrite Labor Signs Protein Cervic Dilation Cervic Effacement Cervic Station trace 40 trace Type Weight in lbs Pre/Post Dialysis Refused Weight 273.490611029794 BP Diastolic BP Location Tested BP Systolic BP Type 87 128 Fetus Heart Rate Present A 145 Fetus Movement A Yes Comments FT/40%/-2. Labor precautions . Considering 39 week induction. Exam per Z. Due SNM. Flowsheet Date 07/24/2020 Ro Score Blood Edema Fundus Height Fundus Units Glucose Ketones Leukocytes Nitrite Labor Signs Protein Cervic Dilation Cervic Effacement Cervic Station Type Weight in lbs Pre/Post Dialysis Refused BP Diastolic BP Location Tested BP Systolic BP Type Fetus Heart Rate Present Fetus Movement Comments Flowsheet Date 07/24/2020 Ro Score Blood Edema Fundus Height Fundus Units Glucose Ketones Leukocytes Nitrite Labor Signs Protein Cervic Dilation Cervic Effacement Cervic Station Type Weight in lbs Pre/Post Dialysis Refused BP Diastolic BP Location Tested BP Systolic BP Type Fetus Heart Rate Present Fetus Movement Comments Flowsheet Date 07/28/2020 Ro Score Blood Edema Fundus Height Fundus Units Glucose Ketones Leukocytes Nitrite Labor Signs Protein Cervic Dilation Cervic Effacement Cervic Station Type Weight in lbs Pre/Post Dialysis Refused BP Diastolic BP Location Tested BP Systolic BP Type Fetus Heart Rate Present Fetus Movement Comments Flowsheet Date 07/28/2020 Ro Score Blood Edema Fundus Height Fundus Units Glucose Ketones Leukocytes Nitrite Labor Signs Protein Cervic Dilation Cervic Effacement Cervic Station trace 39 trace 3cm 50% -2 Type Weight in lbs Pre/Post Dialysis Refused Weight 271.805036269487 BP Diastolic BP Location Tested BP Systolic BP Type 90 133 Fetus Heart Rate Present A 150 Fetus Movement A Yes Comments BP elevated. This is her 2nd bp elevation. Dx GHTN. Pt denies h/a, v/d, or e/p. Pt agrees to proceed with pitocin induction. She will head over to the hospital. Plan gbs treatment and low dose pitocin. Flowsheet Date 07/28/2020 Ro Score Blood Edema Fundus Height Fundus Units Glucose Ketones Leukocytes Nitrite Labor Signs Protein Cervic Dilation Cervic Effacement Cervic Station Type Weight in lbs Pre/Post Dialysis Refused BP Diastolic BP Location Tested BP Systolic BP Type Fetus Heart Rate Present Fetus Movement Comments Menstrual History Last Menstrual Date Menses Monthly On Bcp Conception Prior Menses Frequency Hcg Plus Date Menarche Onset Age 0811/03/2019 Genetic Screening And Infection History Question Response Note Mental Retardation/Autism false Patient's Age Will Be 35 Years Or Older At Estim ated Date of Delivery false Thalassemia (St [place]ian, Malay, Mediterranean, Or Background): MCV < 80 false Neural Tube Defect (Meningomyelocele, Spina Bifi da, Or Anencephaly) false Congenital Heart Defect false Down Syndrome false Sean-Sachs (eg, Anabaptism, Cajun, Malaysian-[place]) f alse Jomar Disease false Sickle Cell Disease Or Trait () false Hemophilia Or Other Blood Disorders false Muscular Dystrophy false Cystic Fibrosis false Nataliya's Chorea false Intellectual Disability/Autism false If Yes, Was Person Tested For Fragile X? false Other Inherited Genetic Or Chromosomal Disorder false Maternal Metabolic Disorder (eg, Type 1 Diabetes , PKU) false Patient Or Baby's Father Had A Child With Defects Not Listed Above false Recurrent Loss, Or A Stillbirth false Medications (including Suppl ements, Vitamins, Herbs, OTC Drugs), Illicit/Recreational Drugs, Alcohol false If Yes, Agent(s) And Strength/Dosage false Any Other Genetic History false Live With Someone With TB Or Exposed To TB false Patient Or Partner Has History Of Genital Herpes false Rash Or Viral Illness Since Last Menstrual Perio d false History Of STD, Gonorrhea, Chlamydia, HPV, Syphi lis false Other Infection History false History of HIV false History of Hepatitis false Prior GBS-infected child false Hemoglobinopathy Or Carrier false Other Structural Defect false Recent Travel History Outside of Country false Delivery Information Delivery Date Delivery Type Labor Anesthesia Weeks Gestation Incision Type Labor Labor Length Hrs Delivered By Post Complications Tubal Sterilization Discharge Date Comments 1 Induce d Regional-Ep idural 38.3 false Emily Knight CNM Maternal Obesity, GHTN & +Gbs Discharge Information Feeding Method Contraceptive Method Maternal HG B and HCT Levels Breast Ob Episode Information Episode Created Date Number of Fetuses Patient Bloodtype Patient rh Status Prepregnancy Weight lbs Domestic Partner Domestic Partner Phone 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 Status 01/31/20 24 1 A Positive [place] OPEN Fetus Data First Name Last Name Admitted to NICU Weight (g) Sex Living Outcome Pediatric Complications Fetus ID Race Codes Race Delivery Type [id number] Problems Problem Notes echo referral faxed maternal hx of cardiac defect- sched in FebFetal echo scheduled 04/18/24 - NL echo [facility] Level II 05/01/24 & 05/29/24 9:45 us only Previous last name *Sheila NORMAL ECHOCARDIOGRAM Problem Name Start Date End Date Resolution Snomed Code Not e Large for gestation age fetus [id number] HISTORICAL Non-alcoholic fatty liver disease [id number] transaminitisr ec RUQ US- sched Ac Radiology 03/21 @ 0900M referall in 1-2 weeks faxed 03/16labs drawn at hospital 24 hr [facility] 0945 Level II US and Office visit 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 -induced hypertension [id number] HISTORICAL Tachycardia [id number] MATERAL - cardiology Suspected macrosomia [id number] Greater than 99 th percentile Female sterilization [id number] Maximino Calculation Initial Maximino Date Initial Exam Date Initial Exam Provider Initial Ultrasound Date Last Menstrual Period Date Ultra Sound Weeks Gestation 01/31/2024 10/08/2023 0 Eighteen To Twenty Week Maximino Update Ultra Sound Date Fundal Height At Umbil Quickening Date Ultra Sound Latest Weeks Gestation Final Maximino Confirmed By Final Maximino Confirmed Date Final Maximino Date Ultra Sound Latest Days Gestation 0 [email or web address] 01/31/2024 07/15/19 25 0 Pre-nahid Flowsheet Flowsheet Date 01/31/2024 Ro Score Blood Edema Fundus Height Fundus Units Glucose Ketones Leukocytes Nitrite Labor Signs Protein Cervic Dilation Cervic Effacement Cervic Station Type Weight in lbs Pre/Post Dialysis Refused Weight 308.727199831698 BP Diastolic BP Location Tested BP Systolic BP Type 87 L arm 131 sitting Fetus Heart Rate Present A 145 Fetus Movement A Yes Comments this patient is a 23-year-ol d MULTIparous female at 12 weeks' gestation who presents for initial care. She has a history of term vaginal births. Her medical, surgical, obstetric history is unremarkable. She is vaccinated. She was given precautions recommendations for . We talked about vaccines in . Talked about care in detail. She is having genetic testing. She had a normal 12 week ultrasound. To begin routine care. Flowsheet Date 02/28/2024 Ro Score Blood Edema Fundus Height Fundus Units Glucose Ketones Leukocytes Nitrite Labor Signs Protein Cervic Dilation Cervic Effacement Cervic Station Type Weight in lbs Pre/Post Dialysis Refused BP Diastolic BP Location Tested BP Systolic BP Type Fetus Heart Rate Present Fetus Movement Comments Flowsheet Date 02/28/2024 Ro Score Blood Edema Fundus Height Fundus Units Glucose Ketones Leukocytes Nitrite Labor Signs Protein Cervic Dilation Cervic Effacement Cervic Station neg none Type Weight in lbs Pre/Post Dialysis Refused Weight 306.681076886052 BP Diastolic BP Location Tested BP Systolic BP Type 78 L arm 125 sitting Fetus Heart Rate Present A Present Fetus Movement A Yes Comments Doing well, good movem ent. No cramping or bleeding. Anatomy complete and normal today. Mild circumvallate placenta, will repeat growth at 32 weeks. Will send order for echo due to maternal hx of cardiac defect repaired at . RTC 4 weeks. Flowsheet Date 03/27/2024 Ro Score Blood Edema Fundus Height Fundus Units Glucose Ketones Leukocytes Nitrite Labor Signs Protein Cervic Dilation Cervic Effacement Cervic Station Type Weight in lbs Pre/Post Dialysis Refused 313.451319459976 BP Diastolic BP Location Tested BP Systolic BP Type 81 L arm 137 sitting Fetus Heart Rate Present A 153 Fetus Movement A Yes Comments no complaints, no problems, routine care, no contractions, no vaginal bleeding, no loss of fluid, no cramping Flowsheet Date 04/24/2024 Ro Score Blood Edema Fundus Height Fundus Units Glucose Ketones Leukocytes Nitrite Labor Signs Protein Cervic Dilation Cervic Effacement Cervic Station Type Weight in lbs Pre/Post Dialysis Refused 319.27515319405 BP Diastolic BP Location Tested BP Systolic BP Type 79 L arm 119 sitting Fetus Heart Rate Present A 154 Present Fetus Movement A Yes Comments patient reports episodes of tachycardia. , no shortness of breath associated with the tachycardia. No dizziness. No contractions, no loss of fluid, no vaginal bleeding. Seen by MFM for LGA. Good blood pressures Flowsheet Date 05/08/2024 Ro Score Blood Edema Fundus Height Fundus Units Glucose Ketones Leukocytes Nitrite Labor Signs Protein Cervic Dilation Cervic Effacement Cervic Station Type Weight in lbs Pre/Post Dialysis Refused 317.057698884688 BP Diastolic BP Location Tested BP Systolic BP Type 75 L arm 114 sitting Fetus Heart Rate Present A 158 Present Fetus Movement A Yes Comments discussed macrosomia and pot ential recommendation, as cardiology appointment upcoming, discussed salpingectomy Flowsheet Date 05/23/2024 Ro Score Blood Edema Fundus Height Fundus Units Glucose Ketones Leukocytes Nitrite Labor Signs Protein Cervic Dilation Cervic Effacement Cervic Station neg none Type Weight in lbs Pre/Post Dialysis Refused Weight 317.771385351708 BP Diastolic BP Location Tested BP Systolic BP Type 76 L arm 119 sitting Fetus Heart Rate Present A Present Fetus Movement A Yes Comments Patient c/o of nausea for th e past 4 days, states having a lot of pelvic pressure. Good movement, no cramping or bleeding. Did have an episode of vaginal bleeding and cramping last week which resolved. Recommend evaluation if symptoms recur. Discussed suspected LGA fetus on recent US, repeat US scheduled for next week with MFM. Hx of with 9lb . Discussed recommendation for c section if EFW at delivery >5000g. Discussed increased risk for shoulder dystocia and trauma with LGA. Will continue to discuss as due date approaches. Start testing weekly at 34 weeks for BMI. Discussed /pumping, colostrum collection. Will measure for belly band today. RTC 2 weeks. Flowsheet Date 06/06/2024 Ro Score Blood Edema Fundus Height Fundus Units Glucose Ketones Leukocytes Nitrite Labor Signs Protein Cervic Dilation Cervic Effacement Cervic Station Type Weight in lbs Pre/Post Dialysis Refused Weight 316.490289395508 BP Diastolic BP Location Tested BP Systolic BP Type 82 127 Fetus Heart Rate Present Fetus Movement Comments Flowsheet Date 06/06/2024 Ro Score Blood Edema Fundus Height Fundus Units Glucose Ketones Leukocytes Nitrite Labor Signs Protein Cervic Dilation Cervic Effacement Cervic Station Type Weight in lbs Pre/Post Dialysis Refused BP Diastolic BP Location Tested BP Systolic BP Type Fetus Heart Rate Present Fetus Movement Comments Flowsheet Date 06/06/2024 Ro Score Blood Edema Fundus Height Fundus Units Glucose Ketones Leukocytes Nitrite Labor Signs Protein Cervic Dilation Cervic Effacement Cervic Station trace Type Weight in lbs Pre/Post Dialysis Refused Weight 316.468046636469 BP Diastolic BP Location Tested BP Systolic BP Type 82 127 Fetus Heart Rate Present Fetus Movement A Yes Comments Patient is having some pain, contractions and swelling. lots of pressure, cervix closed/soft, increase rest and hydration +FM bpp 8/8, precautions and education, preadmit scheduled Flowsheet Date 06/13/2024 Ro Score Blood Edema Fundus Height Fundus Units Glucose Ketones Leukocytes Nitrite Labor Signs Protein Cervic Dilation Cervic Effacement Cervic Station Type Weight in lbs Pre/Post Dialysis Refused Weight 318.680205907191 BP Diastolic BP Location Tested BP Systolic BP Type 81 127 Fetus Heart Rate Present Fetus Movement Comments Flowsheet Date 06/13/2024 Ro Score Blood Edema Fundus Height Fundus Units Glucose Ketones Leukocytes Nitrite Labor Signs Protein Cervic Dilation Cervic Effacement Cervic Station Type Weight in lbs Pre/Post Dialysis Refused BP Diastolic BP Location Tested BP Systolic BP Type Fetus Heart Rate Present Fetus Movement Comments Flowsheet Date 06/13/2024 Ro Score Blood Edema Fundus Height Fundus Units Glucose Ketones Leukocytes Nitrite Labor Signs Protein Cervic Dilation Cervic Effacement Cervic Station neg none Type Weight in lbs Pre/Post Dialysis Refused 318.208104591389 BP Diastolic BP Location Tested BP Systolic BP Type 81 127 Fetus Heart Rate Present Fetus Movement A Yes Comments Patient is having contractio ns. reviewed polyhydramnios, bpp 8/10, +FM, precautions and education f/u one week Menstrual History Last Menstrual Date Menses Monthly On Bcp Conception Prior Menses Frequency Hcg Plus Date Menarche Onset Age 0710/08/2023 true Delivery Information Delivery Date Delivery Type Labor Anesthesia Weeks Gestation Incision Type Labor Labor Length Hrs Delivered By Post Complications Tubal Sterilization Discharge Date Comments Discharge Information Feeding Method Contraceptive Method Maternal HG B and HCT Levels
--- OUTSIDE RECORDS SUMMARY | 2024-06-18 14:44 | XMS_ITS ---
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 Name Role Phone Jackie Woods Primary Care Provider REASON FOR VISIT please email release Social History Sex Assigned At : Social History Observation Description Sex Assigned At Female Encounters Encounter Location Date Provider Diagnosis [facility] [address] [place] [address] 05/14/2024 Jackie Woods Plan Of Treatment No Information Progress Notes * Linh SOSADOB:2000 (23 yo F)Acc No.[id number]:05/14/2024 Patient: Linh TOWNSEND :2000 A ge:23 Y S ex:Female Address:[address] [place], [address] * true * Date: Generated for Evy winchester/Emanuel/eTransmitting on: 0 06/18/2024 02:43 PM CDT
--- OUTSIDE RECORDS SUMMARY | 2024-06-18 14:44 | XMS_ITS | Patient Health Record ---
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 05/14/2024 Sleep disturbance (ICD-10 - G47.9) 10/12/2023 Screening for HIV (human immunodeficiency virus) (ICD-10 - Z11.4) 10/12/2023 Morbid obesity due to excess calories (ICD-10 - E66.01) 10/12/2023 Nutritional counseling (ICD-10 - Z71.3) 08/25/2023 Other Discussed that we will stabilize mood then work on binge eating and concentration concerns. Agrees to plan. Explained how to access therapy at [facility] I move up there I will do it. Rule out bipolar spectrum 09/08/2023 Other increased luraisidone Rule out bipolar spectrum Plan Of Treatment No Information Insurance Providers Payer Name Payer Address Payer Phone Subscriber Number Group Number Insured Name Patient Relationship to Insured Coverage Start Date Coverage End Date [facility] [address] [place] [address] [id number] Linh Sosa Self - patient is the insured 4 MEDICAID [address] [place] [address] [id number] Linh Sosa Self - patient is the insured 4 Medical (General) History Surgical History Surgery Date(Month/Year) appendectomy 11/2019 cholecystectomy 02/2018 surgical repair of Patent du ctis arteriolis-had cardiology FU as a child, no issue at present as a infant Hospitalization History Reason Date(Month/Year) 2013 for suicidal ideation, 2017 for osmani f harm/sucidal ideation 2013, 2016
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
[2024-06-18 14:52] LABS: Creatinine Urine 98.1 mg/dL; Total Protein Urine Random 21 mg/dL; Ur Ttl Prot Creatinine Ratio 0.21 mg/mg (0-0.20)
--- NOTE | 2024-06-18 15:39 | PC.NURSE ---
Bowen Jenkins notified of symptoms and lab results. Also informed of elevated Bile Acids that were noted on 03/15/23, informed of patient hx of fatty liver disease. Orders for patient to be discharged and come to office for repeat bile acids.
== END 2024-06-18 15:39 | disposition home or self-care (01) ==
LOC: ANHOBOP 12:59 → ANHOBPP 13:01
PROVIDERS: PCP Nurse Practitioner; Visit Provider Advanced Practice Midwife
DX: O13.9 Gestational [pregnancy-induced] hypertension without significant proteinuria, unspecified trimester (principal); Z3A.00 Weeks of gestation of pregnancy not specified
CPT/HCPCS: 36415; 80053; 81001; 82570; 84156; 84550; 85025; 87086

== ENCOUNTER 2024-06-19 19:30 | Inpatient (IN) | payer BC, MEDICAID, SELFPAY ==
[2024-06-19] VITALS (7 sets, daily range): BP systolic 124–134; BP diastolic 65–75; PULSE 101–120; TEMP 36.4–36.7; BMI 49.4
[2024-06-19] MEDS: DEXTROSE 5%/LACTATED RINGERS 1,000 ML 999 ML IV CONT (12:30)
--- NOTE | 2024-06-19 12:30 | PC.NURSE ---
Sandra Jenkins CNM on unit. Tracing reviewed. Orders received.
[2024-06-19] MEDS: ONDANSETRON INJ 4 MG/2 ML VIAL IV PUSH (12:32)
[2024-06-19] MEDS: ACETAMINOPHEN 500 MG TABLET 1000 MG PO (12:33)
[2024-06-19 12:40] LABS: Basophils Percent Auto 0.2 % (0.2-1.2); Eosinophils Percent Auto 0.4 % (0-4.4); Hematocrit 33.8 % (37.0-47.0); Immature Granulocyte Absolute 0.03 K/mm3 (0.00-0.031); Immature Granulocyte Percent A 0.5 % (0-0.5); Lymphocytes Absolute Auto 1.04 K/mm3 (0.9-3.2); Lymphocytes Percent Auto 18.8 % (18.3-44.2); Mean Corpuscular HGB Conc 32.5 g/dl (32-36); Mean Corpuscular Hemoglobin 28.7 pg (26-34); Mean Corpuscular Volume 88.3 fl (80-100); Mean Platelet Volume 11.2 fl (7.4-10.4); Monocytes Absolute Auto 0.6 K/mm3 (0.1-0.6); Monocytes Percent Auto 10.6 % (2.6-8.5); Neutrophils Absolute Auto 3.9 K/mm3 (1.3-6.7); Neutrophils Percent Auto 69.5 % (45.5-73.1); Platelet Count Result 164 k/mm3 (150-375); Red Blood Count 3.83 M/mm3 (4.2-5.4); Red Cell Distribution Width 13.9 % (11.5-14.5); White Blood Count 5.5 K/mm3 (4.5-10.0)
[2024-06-19 12:56] LABS: Alanine Aminotransferase 151 U/L (6-35); Albumin Level 3.9 g/dL (3.5-5.1); Alkaline Phosphatase 93 U/L (38-126); Anion Gap 12 mmol/L (4-12); Aspartate Amino Transferase 186 U/L (14-36); Bilirubin,Total 0.4 mg/dL (0.2-1.3); Blood Urea Nitrogen 8 mg/dL (7-17); Carbon Dioxide 19 mmol/L (22-30); Chloride 104 mmol/L (98-107); Estimated CRCL calculation 221 ml/min; Estimated Glomerular Filt Rate > 60; Glucose 94 mg/dL (65-110); Potassium 3.9 mmol/L (3.4-5.0); Sodium 135 mmol/L (137-145); Uric Acid 4.9 mg/dL (2.5-7.5)
--- OUTSIDE RECORDS SUMMARY | 2024-06-19 13:14 | XMS_ITS | Continuity of Care Document ---
Author Organization [facility] [place] Address [address] [place] [address] Assessment Encounter Date Assessment Date Assessment LastModified by Organization Details LastModified Time 06/19/2024 06/19/2024 Patient is 36___weeks . Discussed plan. Not available 06/19/2024 13:36:01 Plan of Treatment Reminders Order Date Submit Date Provider Last Modified By Organization Details Last Modified Time Details Appointments NST 2024 09:30A M NST SCHEDULE Not available Not available Not available U/S OB BPP 2024 10:00A M ULTRASOUND Not available Not available Not available OB ROUTINE 2024 10:30A M Ryanne Jenkins CNM Not available Not available Not available U/S OB GROWTH 2024 09:30A M ULTRASOUND Not available Not [...] available OB ROUTINE 2024 10:30A M Ryanne Jenkins, SEGUNM Not available Not available Not available Lab None recorde d. Referral None recorde d. Procedures None recorde d. Surgeries None recorde d. Imaging None recorde d. Medication Orders None recorde d. Patient TargetsNo targets recorded. Patient InstructionsNo instructions recorded. Reason for Referral None Reported. Results Created Date Observation Date Name Description Value Unit Range Abnormal Flag Note LastModifiedBy Organization Detail LastModifiedTime 01/31/20 24 01/31/2024 US, obste tric, limit ed No observ ation record ed. [email or web address] [place] [address], [place], [address], 01/31/2024 12:37:48 01/31/20 24 01/31/2024 US, obste tric, follo w-up No observ ation record ed. [email or web address] [address], [place], [address], 02/01/2024 09:20:31 02/28/20 24 02/28/2024 US, obste tric, 2nd or 3rd trime ster No observ ation record ed. [email or web address] [place] [address], [place], [address], 02/28/2024 12:46:40 02/28/20 24 02/28/2024 US, obste tric, 2nd or 3rd trime ster No observ ation record ed. [email or web address] [address], [place], [address], 02/28/2024 22:07:00 03/15/19 25 03/15/2024 US, obste tric, limit ed No observ ation record ed. [address], [address], 03/21/2024 16:40:23 03/15/19 25 03/15/2024 US, obste tric, limit ed No observ ation record ed. [address] [place], [address], 03/21/2024 16:39:34 03/21/19 25 03/21/2024 US, abdom en, compl ete No observ ation record ed. [address] [address], [place], [address], 03/27/2024 13:41:28 03/21/19 25 03/21/2024 US, abdom en, compl ete No observ ation record ed. [address] [address], [place], [address], 03/21/2024 17:14:47 04/05/19 25 04/04/2024 US, obste tric, follo w-up No observ ation record ed. [address]aternal [address], [address], 04/18/2024 09:20:24 05/02/19 25 05/01/2024 US, obste tric, follo w-up No observ ation record ed. [address], [address], 05/16/2024 09:15:34 05/11/19 25 03/16/2024 non-s tress test No observ ation record ed. [address] [address], [place], [address], 05/15/2024 15:46:42 05/31/19 25 05/29/2024 US, obste tric, follo w-up No observ ation record ed. [address], [address], 06/07/2024 15:54:38 06/07/19 25 06/06/2024 US, obste tric, bioph ysica l profi le + non-s tress test No observ ation record ed. [email or web address] [place] [address], [place], [address], 06/06/2024 18:23:10 06/07/19 25 06/06/2024 US, deann shukla, follo w-up No observ ation record ed. [email or web address] [address], [place], [address], 06/07/2024 15:54:01 06/07/19 25 06/06/2024 non-s tress test No observ ation record ed. [email or web address] [place] [address], [place], [address], 06/06/2024 19:15:13 06/07/19 25 06/06/2024 non-s tress test No observ ation record ed. [email or web address] [place] [address], [place], [address], 06/06/2024 19:20:12 06/14/19 25 06/13/2024 US, deann shukla, bioph ysica l profi le + non-s tress test No observ ation record ed. [email or web address] [place] [address], [place], [address], 06/13/2024 18:31:15 06/14/19 25 06/13/2024 US, deann shukla, bioph ysica l profi le + non-s tress test No observ ation record ed. [email or web address] [address], [place], [address], 06/13/2024 22:20:37 06/15/19 25 06/13/2024 non-s tress test No observ ation record ed. [email or web address] [place] [address], [place], [address], 06/14/2024 09:43:48 06/15/19 25 06/13/2024 non-s tress test No observ ation record ed. [email or web address] [place] [address], [place], [address], 06/14/2024 10:08:22 06/19/19 25 06/18/2024 imagi ng/di agnos tic resul t No observ ation record ed. [facility] [address], [place], [address], 06/19/2024 07:31:46 06/20/19 25 06/19/2024 US, obste tric, bioph ysica l profi le + non-s tress test No observ ation record ed. [email or web address] [address], [place], [address], 06/19/2024 13:07:12 06/20/19 25 06/19/2024 US, obste tric, bioph ysica l profi le + non-s tress test No observ ation record ed. [email or web address] [place] [address], [place], [address], 06/19/2024 14:10:52 Result Notes None recorded. Problems Name Problem SNOMED Code Status Onset Date Resolution Date Notes Provider Name and Address Organization Details Recorded Time Pregnanc y detectio n examinat ion Completed 201703/25/2020 Encounte r for pregnanc y test, result positive ;Practic e ID: 0001 Jackie Oviedo MD [address], [place], [address], [facility] 10:33:48 Normal pregnanc y in multigra lupis [id number] Completed 201703/25/2020 Encounte r for suprvsn of normal pregnanc y, first trimeste r;Practi ce ID: 0001 Jackie Oviedo MD [address], [place], [address], [facility] 1 10:33:46 Antenata l screenin g Completed 201703/25/2020 Encounte r for other specifie d antenata l screenin g;Practi ce ID: 0001 Jackie Oviedo MD [address], [place], [address], [facility] 1 10:33:13 Pregnanc y test negative [id number] Completed 201703/25/2020 Encounte r for pregnanc y test, result negative ;Recorde d Elsewher e: No Locat ion: [facility] S ource: EHR Car Escort elmo: N Practi ce ID: 0001 Scott lable Time: 02:30:00 PM Jackie Oviedo MD [address], [place], [address], [facility] 1 10:34:03 Jaki ry postpart um mood disturba nce 09100584 Completed 201703/25/2020 Postpart um mood disturba nce;Luis Alberto rded Elsewher e: No Locat ion: [facility] S ource: EHR Car Escort elmo: N Cristhianti ce ID: 0001 Scott lable Time: 02:30:00 PM Jackie Oviedo MD [address], [place], [address], [facility] 1 10:34:32 Lochia finding Completed 201703/25/2020 Encounte r for routine postpart um follow-u p;Record ed Elsewher e: No Locat ion: [facility] S ource: EHR Car Escort elmo: N Practi ce ID: 0001 Scott lable Time: 02:30:00 PM Jackie Oviedo MD [address], [place], [address], [facility] 1 10:33:43 Blood leukocyt e number above referenc e range [id number] Completed 201703/25/2020 Elevated white blood cell count, unspecif ied;Luis Alberto rded Elsewher e: No Locat ion: Carmella luis antonio [facility] S ource: EHR Car Escort elmo: N Cristhianti ce ID: 0001 Scott lable Time: 11:30:00 AM Jackie Oviedo MD [address], [place], [address], [facility] 10:33:[address] Concept Completed 201703/25/2020 Encntr for routine child health exam w/o abnormal findings ;Recorde d Elsewher e: No Locat ion: [facility] S ource: EHR Car Escort elmo: N Cristhianti ce ID: 0001 Scott lable Time: 10:15:00 AM Jackie Oviedo MD [address], [place], [address], [facility] 10:34:18 Syphilis test finding [id number] Completed 201703/25/2020 Encntr screen for infectio ns w sexl mode of transmis s;Record ed Elsewher e: No Locat ion: [facility] S ource: EHR Car Escort elmo: N Lawanda ce ID: 0001 Scott lable Time: 10:15:00 AM Jackie Oviedo MD [address], [place], [address], [facility] 10:34:27 Emotiona l state finding Completed 201703/25/2020 Anxiety depressi on;Recor ded Elsewher e: No Locat ion: [facility] S ource: EHR Car Escort elmo: N Cristhianti ce ID: 0001 Scott lable Time: 11:15:00 AM Jackie Oviedo MD [address], [place], [address], [facility] 10:33:16 Infectio n screenin g Completed 201703/25/2020 Encounte r for screenin g for oth infec/pa rastc diseases ;Recorde d Elsewher e: No Locat ion: Mary aslmon [facility] S ource: EHR Car Escort elmo: N Lawanda ce ID: 0001 Scott lable Time: 10:15:00 AM Jackie Oviedo MD [address], [place], [address], [facility] 1 10:33:34 Pregnanc y, childbir th and puerperi um finding Completed 201703/25/2020 Encounte r for supervis ion of normal 1st pregnanc y;Record ed Elsewher e: No Locat ion: Mary salmon [facility] S ource: EHR Car Escort elmo: N Lawanda ce ID: 0001 Scott lable Time: 11:30:00 AM Jackie Oviedo MD [address], [place], [address], [facility] 1 10:34:01 Large fetus [id number] Completed 201703/25/2020 Maternal care for excess growth, third trimeste r, unsp;Rec orded Elsewher e: No Locat ion: Carmella luis antonio [facility] S ource: EHR Car Escort elmo: N Lawanda ce ID: 0001 Scott lable Time: 11:00:00 AM Jackie Oviedo MD [address], [place], [address], [facility] 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 1 10:34:20 Pregnanc y, childbir th and puerperi um finding Completed 201703/25/2020 Encntr for suprvsn of normal first preg, third trimeste r;Record ed Elsewher e: No Locat ion: Mary salmon [facility] S ource: EHR Car Escort elmo: N Lawanda ce ID: 0001 Scott lable Time: 04:45:00 PM Jackie Oviedo MD [address], [place], [address], [facility] 1 10:34:08 Body mass index 30+ - obesity 187255222 Active 2017 Catrachitajosefina jane, [facility] 1 10:06:52 Urinary tract infectio us disease 98964275 Completed 201703/25/2020 Urinary tract infectio n, site not specifie d;Record ed Elsewher e: No [facility] S ource: EHR Car Escort elmo: N Lawanda ce ID: 0001 Scott lable Time: 01:00:00 PM Jackie Oviedo MD [address], [place], [address], [place] [facility] 10:34:34 Secondar y amenorrh ea 227174108 Completed 201703/25/2020 Secondar y amenorrh ea;Recor ded Elsewher e: No [facility] S ource: EHR Car Escort emlo: N Lawanda ce ID: 0001 Scott lable Time: 10:15:00 AM Jackie Oviedo MD [address], [place], [address], [place] [facility] 1 10:34:15 Gestatio n period, 36 weeks 86379658 Completed 201703/25/2020 36 weeks gestatio n of pregnanc y;Record ed Elsewher e: No Locat ion: Mary salmon [facility] S ource: EHR Car Escort elmo: N Cristhianti ce ID: 0001 Scott lable Time: 11:00:00 AM Jackie Oviedo MD [address], [place], [address], [facility] 10:33:21 Procedur e Completed 201703/25/2020 Encounte r for checking , reinsert ion or removal of implanta ble subderma l contrace ptive;Re corded Elsewher e: No Locat ion: [facility] S ource: EHR Car Escort elmo: N Practi ce ID: 0001 Scott lable Time: 02:30:00 PM Jackie Oviedo MD [address], [place], [address], [facility] 10:34:[address] Concept Completed 201703/25/2020 Decrease d movement s, third trimeste r, unsp;Pra ctice ID: 0001 Jackie Oviedo MD [address], [place], [address], [facility] 10:34:22 False labor at or after 37 complete d weeks of gestatio n [id number] Completed 201703/25/2020 False labor at or after 37 complete d weeks of gestatio n;Practi ce ID: 0001 Jackie Oviedo MD [address], [place], [address], [facility] 10:33:18 Gestatio n period, 38 weeks 80000598 Completed 201703/25/2020 38 weeks gestatio n of pregnanc y;Practi ce ID: 0001 Jackie Oviedo MD [address], [place], [address], [facility] 10:33:23 Lacerati on of female perineum Completed 201703/25/2020 Second degree perineal lacerati on during delivery ;Practic e ID: 0001 Jackie Oviedo MD [address], [place], [address], [facility] 10:33:37 Single live 502980155 Completed 201703/25/2020 Single live ;Pr actice ID: 0001 Jackie Oviedo MD [address], [place], [address], [facility] 10:34:29 Gestatio n period, 39 weeks 16915949 Completed 201703/25/2020 39 weeks gestatio n of pregnanc y;Practi ce ID: 0001 Jackie Oviedo MD [address], [place], [address], [facility] 10:33:[address] Concept Completed 201703/25/2020 Encounte r for surveill ance of other contrace ptives;P ractice ID: 0001 Jackie Oviedo MD [address], [place], [address], [facility] 10:34:24 Pregnanc y 22021256 Completed 201908/01/2020 Nimisha Barnett null, [facility] 4 11:35:14 Anxiety disorder 077369591 Completed Buspar Mary Bohnenstieh l [facility], [facility] 12:25:20 Obesity 535908067 Completed BMI - Antenata l testing at 32 wks Mary Bohnenstieh l [facility], [facility] 12:25:20 Small head 088614131 Completed Mary Bohnenstieh l null, [facility] 12:25:20 Nausea and vomiting 86371651 Completed zofran Mary Bohnenstieh l null, [facility] 12:25:20 Pregnanc y 83559354 Active 2023 Nimisha Barnett [facility], [facility] 4 11:35:14 Pregnanc y-induce d hyperten jelly 72515709 Active HISTORIC LITTLE Camilo MD [address], [place], [address], [facility] 4 12:08:40 Large for gestatio n age fetus 073416098 Active HISTORIC LITTLE Camiol MD [address], [place], [address], [facility] 4 12:09:08 Placenta circumva llata 7600935 Active Phong Camilo MD [address], [place], [address], [facility] 4 22:05:54 Non-alco holic fatty liver disease Active transami nitis rec RUQ [facility] Radiolog y 03/21 @ 0900 [facility] referall in 1-2 weeks faxed 03/16 labs drawn at hospital 24 hr urine in process Schedule d [facility] 04/04/24 0945 Level II US and Office visit Leann Francis [facility] 5 15:17:17 Tachycar sangita 5866144 Active MATERAL - cardiolo gy Phong Camilo MD [address], [place], [address], [facility] 5 11:12:10 Suspecte d macrosom ia 302542461 Active Greater than 99th percenti fredy Camilo MD [address], [place], [address], [facility] 5 10:56:02 Female steriliz ation Active Phong Camilo MD [address], [place], [address], [facility] 5 10:56:20 Cholesta sis 66985055 Active 2024 Tavia Murray null, [facility] 5 13:35:52 History of cardiova scular surgery 136304057 Active 2024 heart surgery age 1 Tavia Murray null, [facility] 5 13:46:05 Problem Notes None recorded. Procedures Surgical History Date Name Laterality Status Provider Name and Address Organization Details Recorded Time Date of Last Pap Smear completed Nimisha Barnett [facility] 01/31/2024 11:33:36 021 Control Implant Removal completed Phong Camilo MD [address], [place], [address], [facility] 09/08/2020 20:58:00 021 Nexplanon Insert completed Emily Knight [facility] 09/03/2020 11:18:52 021 NST completed Jackie Oviedo MD [address], [place], [address], [facility] 07/07/2020 11:36:35 021 NST completed Jackie Oviedo MD [address], [place], [address], [facility] 06/16/2020 13:31:19 020 Control Implant Removal completed Bianka Prakash MARTHA- [address], [place], [address], [facility] 10/30/2019 10:42:19 019 Appendectomy completed Anne Maynard [facility] 01/28/2020 15:21:38 018 Cholecystectomy completed Mariel Lucita [facility] 12/28/2019 14:44:10 000 procedure on heart completed Tavia Murray [facility] 06/19/2024 13:43:12 Imaging Results None recorded. Procedure Notes None recorded. Medical Equipment None Reported. Allergies Allergen ID Allergen Name Allergen Category Reaction Reaction Severity Criticality Documentation Date Start Date Code Code System Note Provider Name and Address Organization Details Recorded Time 2757 ketamine medicatio n Not available Not available Not available 01/28/2020 6130 RxNorm Anne Maynard lucinda [facility] 0 15:26:20 Medications Name Sig Start [...] Prescrib ed Elsewher e: No Locat ion: [facility] M odify By: [email or web address] E [email or web address] DateTime : 11/01/19 18 01:00:00 PM Not Available Not Available Not Available propranol ol 40 mg tablet TAKE 1 TABLET BY MOUTH TWICE A DAY NEEDED FOR ANXIOUS DISTRESS 01/30 completed Not Available Not Available Not Available Zoloft 50 mg tablet take 1 tablet by oral route every day 04/21 completed Prescrib ed Elsewher e: No Locat ion: [facility] M odify By: [email or web address] Encounev hall DateTime : 03/08/20 18 11:15:00 AM [...] day for 2 weeks 02/14 completed Prescrib jas Jorgensen e: Noemi Locat ion: [facility] odify By: adalid abbasi DateTime : 02/02/20 02:30:00 PM Not Available [...] Available Not Available Vitals Date Recorded Body weight Systolic blood pressure Diastolic blood pressure Provider Name and Address Organization Details Last Updated DateTime 06/19/2024 635178.188 92 g 128 mm[Hg] 87 mm[Hg] Tavia Murray [facility] 06/19/2024 13:36:13 Social History Question Answer Notes LastModified by Organizat ion Details LastModified Time Tobacco Smoking Status Never Smoker Tara jane [facility] 06/16/2020 10:34:12 Do You Have An [...] Or The Highest Degree You Have Received? [id number] Information not available 05/19/2020 Are There Any Guns Present In Your Home? Yes Information not available 05/19/2020 Do You Use Protection During Sex? No Information not available 05/19/2020 Do You Use Your Seat Belt Or Car Seat Routinely? Yes Information not available 05/19/2020 Are You Sexually Active? Yes [email or web address] Information not available 05/23/2024 Do You Have Smoke And Carbon Monoxide Detectors In Your Home? Yes Information not available 05/19/2020 How Much Tobacco Do You Smoke? No Information not available 05/19/2020 Do You Feel Stressed (tense, Restless, Nervous, Or Anxious, Or Unable To Sleep At Night)? [id number] Information not available 05/19/2020 Do You Use Any Illicit Or Recreational Drugs? No Information not available 05/19/2020 Do You Use Sunscreen Routinely? No Information not available 05/19/2020 Have You Used IV Drugs? No Information not available 05/19/2020 Sex: Unknown Functional Status Question Answer Note LastModified by Organizat ion Details LastModified Time Do you have difficulty walking or climbing stairs? No [email or web address] Information not available 05/23/2024 Are you able to walk? [email or web address] Information not available 05/19/2020 Are you able to care for yourself? Yes [email or web address] Information not available 05/23/2024 Do you have difficulty dressing or bathing? No [email or web address] Information not available 05/23/2024 What is your [...] Allergies (Food, seasonal, environmental ) N Other Y Breast Cancer N Drug/Latex Allergies/Reactions Y Blood Transfusion N Dermatologic Disorders N Lung Disease N Defects or Inherited Disease N Breast Problem N Gestational Diabetes N Hematologic disorders Y Anesthesia Complications N History of STI N Deep Vein Thrombosis N Polycystic ovary syndrome N Anxiety Disorder Y Autoimmune disease N Arthritis N Infertility N Polyps N Acid Reflux (GERD) N History of abnormal pap N Cancer N Stroke N Varicosities N Neurologic/Epilepsy N Endometriosis N High Cholesterol N Headaches N Fibromyalgia N Kidney Disease N Heart Problems Y Kidney or Bladder Problems N Thyroid Problems N GI Problems N Eating Disorder N Anemia N Art (IVF or FET) N Psychiatric Illness N Ovarian Cancer N Diabetes N Pulmonary (TB, Asthma) N Hepatitis/Liver Disease N Eczema N Urinary Tract Infection N Abuse/Domestic Violence N Asthma N Trauma/Violence N Depression/ depression Y Heart Disease N Pre-Eclampsia N Hypertension N Osteoporosis N Thrombophilias N Gynecological History Statement/Question Response Abnormal Pap N Flow Moderate Date of Last Mammogram Date of LMP 10/08/2023 N On BCP's at Conception? N STIs/STDs N Was last menstrual period normal Y HPV Vaccine N Duration of Flow (days) 4 Current Control Method Age at First Child 17 Are cycles usually normal Y Date of Last Colonoscopy Frequency of Cycle (Q days) 26 Sexually Active? Y Menses Monthly Y Date of DEXA bone scan Age of first menstrual cycle 10 Date of Last Pap Smear 12/13/2023 Sexual Problems? Y LMP Definite N Obstetrics History GPAL:G 3 P 2 0 0 2 Type Value Full Term 2 Living 2 Total 3 Past Encounters Encounter ID Performer Location Encounter Start Date Encounter Closed Date Diagnosis/Indication Diagnosis SNOMED-CT Code Diagnosis ICD10 Code Diagnosis Note [id number] OWEN CORREIA MD [place] [address] [address] 05/23/2024 12:45:59 05/23/2024 14:25:44 Maternal obesity complicating , childbirth and the puerperium, antepartum 9704178229 07 O99.212 - testing at 34 weeks Large for gestation age fetus 372882340 O36.63X0 Non-alcoho lic fatty liver 919978394 K76.0 Placenta circumvallata 4913814 O43.119 Gestation period, 32 weeks 9622535 Z3A.32 [id number] Tavia Murray [place] [address],[place] [address] 06/06/2024 14:29:05 06/07/2024 03:54:11 Maternal obesity complicating , childbirth and the puerperium, antepartum 0966349648 07 O99.213 [id number] [facility] [address],[place] [address] 06/06/2024 14:30:20 06/06/2024 16:04:02 -induced hypertension 67592786 O13.3 Z3A.34 [id number] [facility] [address],[place] [address] 06/06/2024 14:30:44 06/06/2024 16:57:36 Gestation period, 34 weeks 42083228 Z3A.34 [id number] [facility] [address],[place] [address] 06/13/2024 11:13:18 06/14/2024 09:59:55 Maternal obesity complicating , childbirth and the puerperium, antepartum 7798874839 07 O99.213 [id number] [facility] [address],[place] [address] 06/13/2024 11:13:47 06/13/2024 12:19:02 Maternal obesity complicating , childbirth and the puerperium, antepartum 3323148669 07 O99.213 O13.3 Z3A.35 [id number] [facility] [address],[place] [address] 06/13/2024 11:14:03 06/13/2024 12:43:55 Gestation period, 35 weeks 87030371 Z3A.35 [id number] Leslie Vaca [place] [address] [address] 06/19/2024 10:19:57 06/19/2024 11:41:04 Chronic hypertension complicating AND/OR reason for care during 16477391 O16.9 O99.210 O26.643 Z3A.36 [id number] Tavia Murray [place] [address] [address] 06/19/2024 10:20:28 06/19/2024 13:49:55 Gestation period, 36 weeks 38938806 Z3A.36 Health Concerns Section Related Observation LastModified by Organization Detai ls LastModified Time None Recorded Concern Status LastModified by Organization Details LastModified Time None Recorded Payers Encounter Date Sequence Insurance Name Policy Number Policy Ramos Covered Member ID Ramos Member ID Guarantor Name 06/19/2024 2 [place] [employer] Linh Sosa [id number] Linh Frazier 06/19/2024 1 [place] [id number] Velma Baez [id number] [facility] Episode Ob Episode Information Episode Created Date Number of Fetuses Patient Bloodtype Patient rh Status Prepregnancy Weight lbs Domestic Partner Domestic Partner Phone 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 Status 01/31/20 24 1 A Positive [place] OPEN Fetus Data First Name Last Name Admitted to NICU Weight (g) Sex Living Outcome Pediatric Complications Fetus ID Race Codes Race Delivery Type [id number] Problems Problem Notes echo referral faxed maternal hx of cardiac defect- sched in FebFetal echo scheduled 04/18/24 - NL echo [facility] Level II 05/01/24 & 05/29/24 9:45 us only Previous last name *Sheila NORMAL ECHOCARDIOGRAM Problem Name Start Date End Date Resolution Snomed Code Not e Large for gestation age fetus HISTORICAL Non-alcoholic fatty liver disease 8486053111 transaminitisr ec RUQ US- sched Ac Radiology 03/21 @ 0900MFM referall in 1-2 weeks faxed 03/16labs drawn at hospital 24 hr urine in processScheduled [facility] [place] 04/04/24 0945 Level II US and Office visit Placenta circumvallata [id number] -induced hypertension [id number] HISTORICAL Tachycardia [id number] MATERAL - cardiology Suspected macrosomia [id number] Greater than 99 th percentile Cholestasis 06/18/2024 [id number] Female sterilization [id number] Maximino Calculation Initial Maximino Date Initial Exam [...] Gestation 0 [email or web address] 01/31/2024 07/15/19 25 0 Pre- Flowsheet Flowsheet Date 01/31/2024 Ro Score Blood Edema Fundus Height Fundus Units Glucose Ketones Leukocytes Nitrite Labor Signs Protein Cervic Dilation Cervic Effacement Cervic Station Type Weight in lbs Pre/Post Dialysis Refused Weight 308.453516830131 BP Diastolic BP Location Tested BP Systolic [...] Weight in lbs Pre/Post Dialysis Refused Weight 306.673526885223 BP Diastolic BP Location Tested BP Systolic [...] Type Weight in lbs Pre/Post Dialysis Refused 313.969429268737 BP Diastolic BP Location Tested BP Systolic [...] Type Weight in lbs Pre/Post Dialysis Refused 319.78393596001 BP Diastolic BP Location Tested BP Systolic [...] Type Weight in lbs Pre/Post Dialysis Refused 317.295492662203 BP Diastolic BP Location Tested BP Systolic [...] Weight in lbs Pre/Post Dialysis Refused Weight 317.361474044464 BP Diastolic BP Location Tested BP Systolic [...] Weight in lbs Pre/Post Dialysis Refused Weight 316.104825709854 BP Diastolic BP Location Tested BP Systolic [...] Weight in lbs Pre/Post Dialysis Refused Weight 316.015174472578 BP Diastolic BP Location Tested BP Systolic [...] Weight in lbs Pre/Post Dialysis Refused Weight 318.920489612563 BP Diastolic BP Location Tested BP Systolic [...] Type Weight in lbs Pre/Post Dialysis Refused 318.878394700252 BP Diastolic BP Location Tested BP Systolic BP Type 81 127 Fetus Heart Rate Present Fetus Movement A Yes Comments Patient is having contractio ns. reviewed polyhydramnios, bpp 10/21, +FM, precautions and education f/u one week Flowsheet Date 06/19/2024 Ro Score Blood Edema Fundus Height Fundus Units Glucose Ketones Leukocytes Nitrite Labor Signs Protein Cervic Dilation Cervic Effacement Cervic Station Type Weight in lbs Pre/Post Dialysis Refused BP Diastolic BP Location Tested BP Systolic BP Type Fetus Heart Rate Present Fetus Movement Comments Flowsheet Date 06/19/2024 Ro Score Blood Edema Fundus Height Fundus Units Glucose Ketones Leukocytes Nitrite Labor Signs Protein Cervic Dilation Cervic Effacement Cervic Station Type Weight in lbs Pre/Post Dialysis Refused BP Diastolic BP Location Tested BP Systolic BP Type Fetus Heart Rate Present Fetus Movement Comments Flowsheet Date 06/19/2024 Ro Score Blood Edema Fundus Height Fundus Units Glucose Ketones Leukocytes Nitrite Labor Signs Protein Cervic Dilation Cervic Effacement Cervic Station neg none Type Weight in lbs Pre/Post Dialysis Refused 316.056787086456 BP Diastolic BP Location Tested BP Systolic BP Type 87 128 Fetus Heart Rate Present Fetus Movement A Yes Comments Patient states that having s ome contractions, headache, dizzy, lightheaded and nausea. denies itching, +FM, not feeling well, dizziness, flushed, afebrile, will sen dto ld for evaluation bpp 10/19 Menstrual History Last Menstrual Date Menses Monthly [...]
--- OUTSIDE RECORDS SUMMARY | 2024-06-19 13:14 | XMS_ITS | Continuity of Care Document ---
Author Organization [facility] [place] Address [address] [place] [address] Assessment No assessment recorded. Plan of Treatment Reminders Order Date Submit [...] CNM Not available Not available Not available Lab None recorde d. Referral None recorde d. Procedures None recorde d. Surgeries None recorde d. Imaging US, obstetr ic, biophys ical profile + non-str ess test 2024 025 DEQUAN [place], [address], [address], [place], [address], 06/19/2024 14:10:52 Medication Orders None recorde d. Patient TargetsNo targets recorded. Patient InstructionsNo instructions recorded. Reason for Referral None Reported. Results Created Date Observation Date Name Description Value Unit Range Abnormal Flag Note LastModifiedBy Organization Detail LastModifiedTime 01/31/20 24 01/31/2024 US, obste tric, limit ed No observ ation record ed. [email or web address] [place] [address], [place], [address], 01/31/2024 12:37:48 01/31/20 24 01/31/2024 US, obste tric, follo w-up No observ ation record ed. [email or web address] [address], [place], [address], 02/01/2024 09:20:31 02/28/20 24 02/28/2024 US, obste tric, 2nd or 3rd trime ster No observ ation record ed. [email or web address] [place] [address], [place], [address], 02/28/2024 12:46:40 02/28/20 24 02/28/2024 US, obste tric, 2nd or 3rd trime ster No observ ation record ed. [email or web address] [address], [place], [address], 02/28/2024 22:07:00 03/15/19 25 03/15/2024 US, obste tric, limit ed No observ ation record ed. [place] [address], [place], [address], 03/21/2024 16:40:23 03/15/19 25 03/15/2024 US, obste tric, limit ed No observ ation record ed. [email or web address] [address], [place], [address], 03/21/2024 16:39:34 03/21/19 25 03/21/2024 US, abdom en, compl ete No observ ation record ed. [place] [address] [address], [place], [address], 03/27/2024 13:41:28 03/21/19 25 03/21/2024 US, abdom en, compl ete No observ ation record ed. [address] [address], [place], [address], 03/21/2024 17:14:47 04/05/19 25 04/04/2024 US, obste tric, follo w-up No observ ation record ed. [address], [address], 04/18/2024 09:20:24 05/02/19 25 05/01/2024 US, obste tric, follo w-up No observ ation record ed. [address], [address], 05/16/2024 09:15:34 05/11/19 25 03/16/2024 non-s tress test No observ ation record ed. [email or web address] [address], [place], [address], 05/15/2024 15:46:42 05/31/19 25 05/29/2024 US, obste tric, follo w-up No observ ation record ed. [address], [address], 06/07/2024 15:54:38 06/07/19 25 06/06/2024 US, obste tric, bioph ysica l profi le + non-s tress test No observ ation record ed. [email or web address] [place] [address], [place], [address], 06/06/2024 18:23:10 06/07/19 25 06/06/2024 US, obste tric, follo w-up No observ ation record ed. [email or web address] [address], [place], [address], 06/07/2024 15:54:01 06/07/19 25 06/06/2024 non-s tress test No observ ation record ed. [email or web address] [place] [address], [place], [address], 06/06/2024 19:15:13 06/07/19 25 06/06/2024 non-s tress test No observ ation record ed. [email or web address] [facility] [address], [place], [address], 06/06/2024 19:20:12 06/14/19 25 06/13/2024 US, deann tric, bioph ysica l profi le + non-s tress test No observ ation record ed. [email or web address] [place] [address], [place], [address], 06/13/2024 18:31:15 06/14/19 25 06/13/2024 US, deann tric, bioph ysica l profi le + non-s tress test No observ ation record ed. [email or web address] [address], [place], [address], 06/13/2024 22:20:37 06/15/19 25 06/13/2024 non-s tress test No observ ation record ed. [email or web address] [place] [address], [place], [address], 06/14/2024 09:43:48 06/15/19 25 06/13/2024 non-s tress test No observ ation record ed. [email or web address] [place] [address], [place], [address], 06/14/2024 10:08:22 06/19/19 25 06/18/2024 imagi ng/di agnos tic resul t No observ ation record ed. [facility] [address], [place], [address], 06/19/2024 07:31:46 06/20/19 25 06/19/2024 US, obste tric, bioph ysica l profi le + non-s tress test No observ ation record ed. [email or web address] [address], [place], [address], 06/19/2024 13:07:12 06/20/19 25 06/19/2024 US, obste tric, bioph ysica l profi le + non-s tress test No observ ation record ed. [email or web address] [place] [address], [place], [address], 06/19/2024 14:10:52 Result Notes None recorded. Problems Name Problem SNOMED Code Status Onset Date Resolution Date Notes Provider Name and Address Organization Details Recorded Time Pregnanc y detectio n examinat ion Completed 201703/25/2020 Encounte r for pregnanc y test, result positive ;Practic e ID: 0001 Jackie Oviedo MD [address], [place], [address], [facility] 10:33:48 Normal pregnanc y in multigra lupis [id number] 55928 Completed 201703/25/2020 Encounte r for suprvsn of normal pregnanc y, first trimeste r;Practi ce ID: 0001 Jackie Oviedo MD [address], [place], [address], [facility] 10:33:46 Antenata l screenin g Completed 201703/25/2020 Encounte r for other specifie d antenata l screenin g;Practi ce ID: 0001 Jackie Oviedo MD [address], [place], [address], [facility] 10:33:13 Pregnanc y test negative [id number] Completed 201703/25/2020 Encounte r for pregnanc y test, result negative ;Recorde d Elsewher e: No Locat ion: [facility] S ource: EHR Physical Therapy Manager elmo: N Practi ce ID: 0001 Scott lable Time: 02:30:00 PM Jackie Oviedo MD [address], [place], [address], [facility] 10:34:03 Jaki ry postpart um mood disturba nce [id number] Completed 201703/25/2020 Postpart um mood disturba nce;Luis Alberto rded Elsewher e: No Locat ion: [facility] S ource: EHR Physical Therapy Manager elmo: N Practi ce ID: 0001 Scott lable Time: 02:30:00 PM Jackie Oviedo MD [address], [place], [address], [facility] 10:34:32 Lochia finding Completed 201703/25/2020 Encounte r for routine postpart um follow-u p;Record ed Elsewher e: No Locat ion: [facility] S ource: EHR Physical Therapy Manager elmo: N Practi ce ID: 0001 Scott lable Time: 02:30:00 PM MD [address], [place], [address], [facility] 1 10:33:43 Blood leukocyt e number above referenc e range 440005487 Completed 201703/25/2020 Elevated white blood cell count, unspecif ied;Luis Alberto rded Elsewher e: No Locat ion: [facility] S ource: EHR Physical Therapy Manager elmo: N Lawanda ce ID: 0001 Scott lable Time: 11:30:00 AM MD [address], [place], [address], [facility] 10:33:[address] Concept Completed 201703/25/2020 Encntr for routine child health exam w/o abnormal findings ;Recorde d Elsewher e: No Locat ion: [facility] S ource: EHR Physical Therapy Manager elmo: N Lawanda ce ID: 0001 Scott lable Time: 10:15:00 AM MD [address], [place], [address], [facility] 10:34:18 Syphilis test finding [id number] Completed 201703/25/2020 Encntr screen for infectio ns w sexl mode of transmis s;Record ed Elsewher e: No Locat ion: [facility] S ource: EHR Physical Therapy Manager elmo: N Lawanda ce ID: 0001 Scott lable Time: 10:15:00 AM MD [address], [place], [address], [facility] 10:34:27 Emotiona l state finding Completed 201703/25/2020 Anxiety depressi on;Recor ded Elsewher e: No Locat ion: [facility] S ource: EHR Physical Therapy Manager elmo: N Lawanda ce ID: 0001 Scott lable Time: 11:15:00 AM MD [address], [place], [address], [facility] 1 10:33:16 Infectio n screenin g Completed 201703/25/2020 Encounte r for screenin g for oth infec/pa rastc diseases ;Recorde d Elsewher e: No Locat ion: [facility] S ource: EHR Physical Therapy Manager elmo: N Lawanda ce ID: 0001 Scott lable Time: 10:15:00 AM Jackie Oviedo MD [address], [place], [address], [facility] 1 10:33:34 Pregnanc y, childbir th and puerperi um finding Completed 201703/25/2020 Encounte r for supervis ion of normal 1st pregnanc y;Record ed Elsewher e: No Locat ion: [facility] S ource: EHR Physical Therapy Manager elmo: Negrito Webber ce ID: 0001 Scott lable Time: 11:30:00 AM Jackie Oviedo MD [address], [place], [address], [facility] 1 10:34:01 Large fetus 373646165 Completed 201703/25/2020 Maternal care for excess growth, third trimeste r, unsp;Rec orded Elsewher e: No Locat ion: [facility] S ource: EHR Physical Therapy Manager elmo: Negrito Webber ce ID: 0001 Scott lable Time: 11:00:00 AM MD [address], [place], [address], [facility] [address] 10:33:[address] Concept Completed 201703/25/2020 Encntr for hatch boss exam (general ) (routine ) w/o abn findings ;Practic e ID: [address], [place], [address], [facility] 1 10:34:20 Pregnanc y, childbir th and puerperi um finding Completed 201703/25/2020 Encntr for suprvsn of normal first preg, third trimeste r;Record ed Elsewher e: No Locat ion: [facility] S ource: EHR Physical Therapy Manager elmo: N Lawanda ce ID: 0001 Scott lable Time: 04:45:00 PM Jackie Oviedo MD [address], [place], [address], [facility] 1 10:34:08 Body mass index 30+ - obesity 865630389 Active 2017 Catrachita jane, [facility] 10:06:52 Urinary tract infectio us disease 84239462 Completed 201703/25/2020 Urinary tract infectio n, site not specifie d;Record ed Elsewher e: No Locat ion: [facility] S ource: EHR Physical Therapy Manager elmo: N Lawanda ce ID: 0001 Scott lable Time: 01:00:00 PM Jackie Oviedo MD [address], [place], [address], [place] [facility] 10:34:34 Secondar y amenorrh ea 935106474 Completed 201703/25/2020 Secondar y amenorrh ea;Recor ded Elsewher e: No Locat ion: [facility] S ource: EHR Physical Therapy Manager elmo: N Lawanda ce ID: 0001 Scott lable Time: 10:15:00 AM Jackie Oviedo MD [address], [place], [address], [place] [facility] 10:34:15 Gestatio n period, 36 weeks 19828165 Completed 201703/25/2020 36 weeks gestatio n of pregnanc y;Record ed Elsewher e: No Locat ion: [facility] S ource: EHR Physical Therapy Manager elmo: N Lawanda ce ID: 0001 Scott lable Time: 11:00:00 AM Jackie Oviedo MD [address], [place], [address], [facility] 10:33:21 Procedur e Completed 201703/25/2020 Encounte r for checking , reinsert ion or removal of implanta ble subderma l contrace ptive;Re corded Elsewher e: No Locat ion: [facility] S ource: EHR Physical Therapy Manager elmo: N Practi ce ID: 0001 Scott lable Time: 02:30:00 PM Jackie Oviedo MD [address], [place], [address], [facility] 10:34:[address] Concept Completed 201703/25/2020 Decrease d movement s, third trimeste r, unsp;Pra ctice ID: 0001 Jackie Oviedo MD [address], [place], [address], [facility] 10:34:22 False labor at or after 37 complete d weeks of gestatio n [id number] Completed 201703/25/2020 False labor at or after 37 complete d weeks of gestatio n;Practi ce ID: 0001 Jackie Oviedo MD [address], [place], [address], [facility] 10:33:18 Gestatio n period, 38 weeks 46554637 Completed 201703/25/2020 38 weeks gestatio n of pregnanc y;Practi ce ID: [address], [place], [address], [facility] 10:33:23 Lacerati on of female perineum Completed 201703/25/2020 Second degree perineal lacerati on during delivery ;Practic e ID: 0001 Jackie Oviedo MD [address], [place], [address], [facility] 10:33:37 Single live [id number] Completed 201703/25/2020 Single live ;Pr actice ID: 0001 Jackie Oviedo MD [address], [place], [address], [facility] 10:34:29 Gestatio n period, 39 weeks 09178906 Completed 201703/25/2020 39 weeks gestatio n of pregnanc y;Practi ce ID: 0001 Jackie Oviedo MD [address], [place], [address], [facility] 10:33:[address] Concept Completed 201703/25/2020 Encounte r for surveill ance of other contrace ptives;P ractice ID: 0001 Jackie Oviedo MD [address], [place], [address], [facility] 10:34:24 Pregnanc y 85224181 Completed 201908/01/2020 Nimisha Barnett null, [facility] 4 11:35:14 Anxiety disorder 598439121 Completed Buspar Mary Bohnenstieh l null, [facility] 12:25:20 Obesity 624657925 Completed BMI - Antenata l testing at 32 wks Mary Bohnenstieh l null, [facility] 12:25:20 Small head 746385230 Completed Mary Bohnenstieh l null, [facility] 12:25:20 Nausea and vomiting 13926953 Completed zofran Mary Bohnenstieh l null, [facility] 1 12:25:20 Pregnanc y 00185199 Active 2023 Nimisha Barnett [facility] 4 11:35:14 Pregnanc y-induce d hyperten jelly 34490100 Active HISTORIC LITTLE Camilo MD [address], [place], [address], [facility] 4 12:08:40 Large for gestatio n age fetus 857773379 Active HISTORIC LITTLE Camilo MD [address], [place], [address], [facility] 4 12:09:08 Placenta circumva llata 3966204 Active Phong Camilo MD [address], [place], [address], [facility] 4 22:05:54 Non-alco holic fatty liver disease Active transami nitis rec RUQ - [facility] y 03/21 @ 0900 [facility] referall in 1-2 weeks faxed 03/16 labs drawn at hospital 24 hr urine in process Schedule d [facility] 04/04/24 0945 Level II US and Office [facility] 15:17:17 Tachycar sangita 6020263 Active MATERAL - cardiolo gy Phong Camilo MD [address], [place], [address], [facility] 5 11:12:10 Suspecte d macrosom ia 177627991 Active Greater than 99th percenti fredy Camilo MD [address], [place], [address], [facility] 5 10:56:02 Female steriliz ation Active Phong Camilo MD [address], [place], [address], [facility] 5 10:56:20 Cholesta sis 11016105 Active 2024 Tavia Murray null, [facility] 5 13:35:52 History of cardiova scular surgery 938597876 Active 2024 heart surgery age 1 Tavia Murray null, [facility] 5 13:46:05 Problem Notes None recorded. Procedures Surgical History Date Name Laterality Status Provider Name and Address Organization Details Recorded Time 024 Date of Last Pap Smear completed Nimisha Barnett [facility] 01/31/2024 11:33:36 021 Control Implant Removal completed Phong Camilo MD [address], [place], [address], [facility] 09/08/2020 20:58:00 021 Nexplanon Insert completed Emily Knight [facility] 09/03/2020 11:18:52 021 NST completed Jackie Oviedo MD [address], [place], [address], [facility] 07/07/2020 11:36:35 021 NST completed Jackie Oviedo MD [address], [place], [address], [facility] 06/16/2020 13:31:19 020 Control Implant Removal completed Bianka Prakash [facility] [address], [place], [address], [facility] 10/30/2019 10:42:19 019 Appendectomy completed Anne Maynard [facility] 01/28/2020 15:21:38 018 Cholecystectomy completed Mariel Landrum [facility] 12/28/2019 14:44:10 000 procedure on heart completed Tavia Murray [facility] 06/19/2024 13:43:12 Imaging Results Imaging Date Name Status LastModified by Organiz ation Details LastModified Time 06/19/2024 US, obstetric, biophysical profile + non-stress test completed [email or web address] [place] [address], [place], [address], 06/19/2024 14:10:52 Procedure Notes None recorded. Medical Equipment None Reported. Allergies Allergen ID Allergen Name Allergen Category Reaction Reaction Severity Criticality Documentation Date Start Date Code Code System Note Provider Name and Address Organization Details Recorded Time 2758 ketamine medicatio n Not available Not available Not available 01/28/2020 6130 RxNorm Anne Maynard null, [facility] 0 15:26:20 Medications Name Sig [...] Prescrib ed Elsewher e: No [facility] By: maite abbasi DateTime : 11/01/19 18 01:00:00 PM Not Available Not Available Not Available propranol ol 40 mg tablet TAKE 1 TABLET BY MOUTH TWICE A DAY NEEDED FOR ANXIOUS DISTRESS 01/30 completed Not Available Not Available Not Available Zoloft 50 mg tablet take 1 tablet by oral route every day 04/21 completed Prescrib ed Elsewher e: No Locat ion: [facility] M odify By: [email or web address] Encounte r DateTime : 03/08/20 11:15:00 AM Not Available Not Available Not [...] Prescrib ed Elsewher e: No Locat ion: [facility] M odify By: adalid abbasi DateTime : 02/02/20 [...] Address Organization Details Last Updated DateTime 06/19/2024 819575.188 92 g 128 mm[Hg] 87 mm[Hg] Tavia Murray [facility] 06/19/2024 13:36:13 Social History Question Answer Notes LastModified by Organizat ion Details LastModified Time Tobacco Smoking Status Never Smoker Tara jane [facility] 06/16/2020 10:34:12 Do You [...] Or The Highest Degree You Have Received? [id number] Information not available 05/19/2020 Are There Any Guns Present In Your Home? Yes Information not available 05/19/2020 Do You Use Protection During Sex? No Information not available 05/19/2020 Do You Use Your Seat Belt Or Car Seat Routinely? Yes Information not available 05/19/2020 Are You Sexually Active? Yes [email or web address] Information not available 05/23/2024 Do You Have Smoke And Carbon Monoxide Detectors In Your Home? Yes Information not available 05/19/2020 How Much Tobacco Do You Smoke? No Information not available 05/19/2020 Do You Feel Stressed (tense, Restless, Nervous, Or Anxious, Or Unable To Sleep At Night)? [id number] Information not available 05/19/2020 Do You Use Any Illicit Or Recreational Drugs? No Information not available 05/19/2020 Do You Use Sunscreen Routinely? No Information not available 05/19/2020 Have You Used IV Drugs? No Information not available 05/19/2020 Sex: Unknown Functional Status Question Answer Note LastModified by Organizat ion Details LastModified Time Do you have difficulty walking or climbing stairs? No [email or web address] Information not available 05/23/2024 Are you able to walk? YESWOREST Information not available 05/19/2020 Are you able to care for yourself? Yes [email or web address] Information not available 05/23/2024 Do you have difficulty dressing or bathing? No [email or web address] Information not available 05/23/2024 What is your [...] (Food, seasonal, environmental ) N Other Y Drug/Latex Allergies/Reactions Y Breast Cancer N Blood Transfusion N Lung Disease N Dermatologic Disorders N Defects or Inherited Disease N Breast Problem N Gestational Diabetes N Hematologic disorders Y Anesthesia Complications N History of STI N Deep Vein Thrombosis N Polycystic ovary syndrome N Anxiety Disorder Y Autoimmune disease N Arthritis N Polyps N Infertility N History of abnormal pap N Acid Reflux (GERD) N Cancer N Varicosities N Stroke N Neurologic/Epilepsy N Endometriosis N High Cholesterol N Headaches N Fibromyalgia N Kidney Disease N Heart Problems Y Thyroid Problems N Kidney or Bladder Problems N GI Problems N Eating Disorder [...] SNOMED-CT Code Diagnosis ICD10 Code Diagnosis Note [id number] OWEN CORREIA MD [facility] [address],[place] [address] 05/23/2024 12:45:59 05/23/2024 14:25:44 Maternal obesity complicating , childbirth and the puerperium, antepartum 3037880924 07 O99.212 - testing at 34 weeks Large for gestation age fetus 977264460 O36.63X0 Non-alcoho lic fatty liver 080998752 K76.0 Placenta circumvallata 6224333 O43.119 Gestation period, 32 weeks 9150534 Z3A.32 [id number] Tavia Murray [facility] [address],[place] [address] 06/06/2024 14:29:05 06/07/2024 03:54:11 Maternal obesity complicating , childbirth and the puerperium, antepartum 0866357845 07 O99.213 [id number] [facility] [address],[place] [address] 06/06/2024 14:30:20 06/06/2024 16:04:02 -induced hypertension 17407050 O13.3 Z3A.34 418903 [facility] [address],[place] [address] 06/06/2024 14:30:44 06/06/2024 16:57:36 Gestation period, 34 weeks 60941693 Z3A.34 [id number] Tavia Murray [facility] [address],[place] [address] 06/13/2024 11:13:18 06/14/2024 09:59:55 Maternal obesity complicating , childbirth and the puerperium, antepartum 2136681010 07 O99.213 528480 [facility] [address],[place] [address] 06/13/2024 11:13:47 06/13/2024 12:19:02 Maternal obesity complicating , childbirth and the puerperium, antepartum 7607384570 07 O99.213 O13.3 Z3A.35 [id number] Ryanne Jenkins CNM [facility] [address],[place] [address] 06/13/2024 11:14:03 06/13/2024 12:43:55 Gestation period, 35 weeks 22693278 Z3A.35 193621 Leslie Condedayna [facility] [address],[place] [address] 06/19/2024 10:19:57 06/19/2024 11:41:04 Chronic hypertension complicating AND/OR reason for care during 56227048 O16.9 O99.210 O26.643 Z3A.36 610391 Tavia [facility] [address],[place] [address] 06/19/2024 10:20:28 06/19/2024 13:49:55 Gestation period, 36 weeks 47693507 Z3A.36 Health Concerns Section Related Observation LastModified by Organization Detai ls LastModified Time None Recorded Concern Status LastModified by Organization Details LastModified Time None Recorded Payers Encounter Date Sequence Insurance Name Policy Number Policy Ramos Covered Member ID Ramos Member ID Guarantor Name 06/19/2024 2 [place] [employer] Linh Sosa [id number] Linh Frazier 06/19/2024 1 [place] [id number] Velmajosefina Jimenezluis antonio [id number] Linh Frazier OBGyn Episode Ob Episode Information Episode Created Date Number of Fetuses Patient Bloodtype Patient rh Status Prepregnancy Weight lbs Domestic Partner Domestic Partner Phone Father Name Strong Nitric Operator Status 01/31/20 24 1 A Positive Lavonte OPEN Fetus Data First Name Last Name Admitted to NICU Weight (g) Sex Living Outcome Pediatric Complications Fetus ID Race Codes Race Delivery Type [id number] Problems Problem Notes echo referral faxed maternal hx of cardiac defect- sched in FebFetal echo scheduled 04/18/24 - NL echo [facility] [place] Level II 05/01/24 & 05/29/24 9:45 us only Previous last name *Sheila NORMAL ECHOCARDIOGRAM Problem Name Start Date End Date Resolution Snomed Code Not e Large for gestation age fetus [id number] HISTORICAL Non-alcoholic fatty liver disease 3377568029 transaminitisr ec RUQ - [facility] Radiology 03/21 @ 0900MFM referall in 1-2 weeks faxed 03/16labs drawn at hospital 24 hr [facility] in processScheduled [facility] 04/04/24 0945 Level II US and Office visit Placenta circumvallata [id number] -induced hypertension [id number] HISTORICAL Tachycardia [id number] MATERAL - cardiology Suspected macrosomia [id number] Greater than 99 th percentile Cholestasis 06/18/2024 [id number] Female sterilization [id number] Maximino Calculation Initial Maximino Date Initial Exam [...] Weight in lbs Pre/Post Dialysis Refused Weight 308.376042847948 BP Diastolic BP Location Tested BP Systolic [...] Weight in lbs Pre/Post Dialysis Refused Weight 306.097083924390 BP Diastolic BP Location Tested BP Systolic [...] Type Weight in lbs Pre/Post Dialysis Refused 313.807381539861 BP Diastolic BP Location Tested BP Systolic [...] Type Weight in lbs Pre/Post Dialysis Refused 319.91841845558 BP Diastolic BP Location Tested BP Systolic [...] Type Weight in lbs Pre/Post Dialysis Refused 317.915420274648 BP Diastolic BP Location Tested BP Systolic [...] Weight in lbs Pre/Post Dialysis Refused Weight 317.736112004805 BP Diastolic BP Location Tested BP Systolic [...] week with MFM. Hx of with 9lb infant. Discussed recommendation for c section if EFW [...] Weight in lbs Pre/Post Dialysis Refused Weight 316.230563055088 BP Diastolic BP Location Tested BP Systolic [...] Weight in lbs Pre/Post Dialysis Refused Weight 316.178192030626 BP Diastolic BP Location Tested BP Systolic [...] Weight in lbs Pre/Post Dialysis Refused Weight 318.534492617203 BP Diastolic BP Location Tested BP Systolic [...] Type Weight in lbs Pre/Post Dialysis Refused 318.850950806335 BP Diastolic BP Location Tested BP Systolic [...] Type Weight in lbs Pre/Post Dialysis Refused 316.461317573163 BP Diastolic BP Location Tested BP Systolic [...]
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
--- OUTSIDE RECORDS SUMMARY | 2024-06-19 13:15 | XMS_ITS ---
Author Organization [facility] Address [address] [place] [address] Care Team Providers Care Guard Range Name Role Phone Jackie Woods Primary Care Provider REASON FOR VISIT please email release Social History Sex Assigned At : Social History Observation Description Sex Assigned At Female Encounters Encounter Location Date Provider Diagnosis [facility] [address] [place] [address] 05/14/2024 Jackie Woods Plan Of Treatment No Information Progress Notes * Linh SOSADOB:2000 (23 yo F)Acc No.[id number]:05/14/2024 Patient: Linh TOWNSEND :2000 A ge:23 Y S ex:Female Address:[address] [place], [address] * true * Date: Generated for Evy winchester/Emanuel/eTransmitting on: 0 06/19/2024 01:15 PM CDT
--- NOTE | 2024-06-19 14:15 | PC.NURSE ---
Called Sandra Jenkins CNM with pt status. Informed of lab results. Orders received.
[2024-06-19 18:54] LABS: Basophils Percent Auto 0.2 % (0.2-1.2); Eosinophils Percent Auto 0.5 % (0-4.4); Hematocrit 33.1 % (37.0-47.0); Hemoglobin 10.8 g/dL (12.0-15.0); Immature Granulocyte Absolute 0.04 K/mm3 (0.00-0.031); Immature Granulocyte Percent A 0.6 % (0-0.5); Lymphocytes Absolute Auto 1.31 K/mm3 (0.9-3.2); Lymphocytes Percent Auto 20.7 % (18.3-44.2); Mean Corpuscular HGB Conc 32.6 g/dl (32-36); Mean Corpuscular Hemoglobin 28.8 pg (26-34); Mean Corpuscular Volume 88.3 fl (80-100); Mean Platelet Volume 11.2 fl (7.4-10.4); Monocytes Absolute Auto 0.6 K/mm3 (0.1-0.6); Monocytes Percent Auto 10.1 % (2.6-8.5); Neutrophils Absolute Auto 4.3 K/mm3 (1.3-6.7); Neutrophils Percent Auto 67.9 % (45.5-73.1); Platelet Count Result 173 k/mm3 (150-375); Red Blood Count 3.75 M/mm3 (4.2-5.4); Red Cell Distribution Width 13.9 % (11.5-14.5); White Blood Count 6.3 K/mm3 (4.5-10.0)
[2024-06-19 19:12] LABS: Alanine Aminotransferase 152 U/L (6-35); Albumin Level 3.9 g/dL (3.5-5.1); Alkaline Phosphatase 91 U/L (38-126); Anion Gap 10 mmol/L (4-12); Aspartate Amino Transferase 182 U/L (14-36); Bilirubin,Total 0.4 mg/dL (0.2-1.3); Blood Urea Nitrogen 8 mg/dL (7-17); Calcium 8.9 mg/dL (8.4-10.2); Carbon Dioxide 21 mmol/L (22-30); Chloride 103 mmol/L (98-107); Estimated CRCL calculation 193 ml/min; Estimated Glomerular Filt Rate > 60; Glucose 95 mg/dL (65-110); Sodium 134 mmol/L (137-145); Uric Acid 4.7 mg/dL (2.5-7.5)
--- NOTE | 2024-06-19 19:23 | P.HP_ITS ---
H&P: HPI History of Present Illness Date/Time: 06/19/24 19:23 Chief Complaint: pt c/o increased dizziness, headache and not feeling well, has been complicated by cholestasis, maternal tachycardia, macrosomia, non- alcoholic fatty liver disease, circumvallate placenta. recent liver enzymes elevated but stable over the last 6 hours, headache resolves with tylenol and hydration. bp's normotensive Review of Systems Review of Systems: All systems reviewed & are unremarkable except as noted in HPI and below PMFSH Past Medical History Medical History (Updated 06/19/24 @ 19:34 by Ryanne Jenkins CNM) Patient denies medical problems Family History Family History Grandparent Diabetes mellitus Grandparent Heart attack Sibling Epilepsy Social History Social History (System 07/15/23 @ 09:13 by Zafar Medel) Smoking status: Never smoker Alcohol intake: never Substance use: never Do You Feel Safe in your Home?: Yes Lack of Transportation: No Lack of Food: Never True Current Housing: I Have Housing Concerned About Future Housing: No Difficulty Paying Gas/Electric Bills: No Difficulty Paying for Meds: No Currently Unemployed: No Education: Decline to Answer Difficulty w/ Childcare or Family Care: No Gender identity (if verbalized by the patient): Female Spiritual care concerns: No Meds Home Medications and Allergies Home Medications ?Medication ?Instructions ?Recorded ?Confirmed ?Type vit no.95-ferrous 1 tablet PO DAILY 07/14/20 03/15/24 History fumarate 28 mg-folic acid 800 mcg tablet () lurasidone 60 mg tablet mg 03/15/24 History Allergies Allergy/AdvReac Type Severity Reaction Status Date / Time No Known Allergies Allergy Verified 03/15/24 20:21 Vital Signs Vital Signs - 24 hr 06/19/24 12:31 06/19/24 12:38 06/19/24 12:46 Temperature 36.4 C L Pulse Rate 103 H 101 H Blood Pressure 126/66 124/65 06/19/24 18:38 06/19/24 18:39 Temperature 36.4 C L Pulse Rate 120 H Blood Pressure 134/75 Exam Const: General: cooperative, healthy appearing and well developed Eyes: General: appearance normal, both eyes and all related structures Neck: Neck: normal visual inspection Chest: Chest palpation & inspection: normal inspection of the chest Resp: Effort & Inspection: normal respiratory effort Auscultation: clear to auscultation bilaterally Cardio: Rate: regular rate Rhythm: regular rhythm GI: Other: soft/gravid Back/Spine/Pelvis: Back: no CVA tenderness Skin: General skin exam: normal color and no rashes or lesions noted Neuro: General: patient oriented x3 Extrem: General: normal to inspection Psych: Appearance: grossly normal Mental Status: mental status grossly normal Speech and movement: Normal speech and movement present H&P: Results Labs Labs: Short CBC 06/19/24 06/19/24 Range/Units 12:24 18:36 WBC 5.5 6.3 (4.5-10.0) K/mm3 Hgb 11.0 L 10.8 L (12.0-15.0) g/dL Hct 33.8 L 33.1 L (37.0-47.0) % Plt Count 164 173 (150-375) k/mm3 BMP 06/19/24 06/19/24 12:24 18:35 Sodium 135 L 134 L Potassium 3.9 4.0 Chloride 104 103 Carbon Dioxide 19 L 21 L BUN 8 8 Creatinine 0.48 L 0.56 L Glucose 94 95 Calcium 9.0 8.9 Liver Function 06/19/24 06/19/24 Range/Units 12:24 18:35 Total Bilirubin 0.4 0.4 (0.2-1.3) mg/dL AST 186 H 182 H (14-36) U/L ALT 151 H 152 H (6-35) U/L Alkaline Phosphatase 93 91 (38-126) U/L Albumin 3.9 3.9 (3.5-5.1) g/dL Assessment and Plan Assessment and plan (1) Non-alcoholic fatty liver disease: Code(s): K76.0 - Fatty (change of) liver, not elsewhere classified Status: Acute (2) Cholestasis during : Code(s): O26.649 - Intrahepatic cholestasis of , unspecified trimester Status: Acute Plan non alcoholic fatty liver diasease cholestasis macrosomia maternal tachycardia co-managing with dr. ortega, plan IOL per dr. ortega rpt labs in the am
[2024-06-20] VITALS (204 sets, daily range): BP systolic 80–151; BP diastolic 31–89; PULSE 90–142; RESP 18–20; TEMP 36.2–37.1; O2SAT 95–100; BMI 49.4
--- NOTE | 2024-06-20 05:39 | LDADM ---
This patient, Linh Frazier, was admitted to Labor/Delivery/Recovery 106 on 06/19/24 at 19:30. Plans for labor, pain management and were discussed with patient. Patient/family oriented to hospital policies and general routines including ID bracelet, bed and alarms, visiting hours, pain management, procedures, bathroom and other care routines, personal items, smoking policy, room service/diet and guest tray routines, infant security routines, and visiting hours. Patient/Family are encouraged to report perceived risks to care and to ask questions if they do not understand what they are told or what they should do. See OBIX for further documentation.
--- NOTE | 2024-06-20 05:55 | PC.NURSE ---
Called Sandra CAST, notified of SVE, orders recieved for buccal cytotec 50mg every four hours for four doses.
[2024-06-20 05:58] LABS: Basophils Percent Auto 0.3 % (0.2-1.2); Eosinophils Percent Auto 0.6 % (0-4.4); Hematocrit 35.3 % (37.0-47.0); Hemoglobin 11.4 g/dL (12.0-15.0); Immature Granulocyte Absolute 0.04 K/mm3 (0.00-0.031); Immature Granulocyte Percent A 0.6 % (0-0.5); Lymphocytes Absolute Auto 1.66 K/mm3 (0.9-3.2); Lymphocytes Percent Auto 25.1 % (18.3-44.2); Mean Corpuscular HGB Conc 32.3 g/dl (32-36); Mean Corpuscular Hemoglobin 28.6 pg (26-34); Mean Corpuscular Volume 88.7 fl (80-100); Mean Platelet Volume 10.9 fl (7.4-10.4); Monocytes Absolute Auto 0.7 K/mm3 (0.1-0.6); Monocytes Percent Auto 10.3 % (2.6-8.5); Neutrophils Absolute Auto 4.2 K/mm3 (1.3-6.7); Neutrophils Percent Auto 63.1 % (45.5-73.1); Platelet Count Result 194 k/mm3 (150-375); Red Blood Count 3.98 M/mm3 (4.2-5.4); White Blood Count 6.6 K/mm3 (4.5-10.0)
[2024-06-20] MEDS: miSOPROStol 25 MCG TABLET 50 MCG BUCCAL (06:16)
[2024-06-20] MEDS: LACTATED RINGERS 1,000 ML 125 ML IV CONT ×3 (06:17→14:33)
[2024-06-20] MEDS: AMPICILLIN 2 GM/NS 100 ML 2 GM/100 ML BAG IVPB (06:17)
[2024-06-20 06:39] LABS: Syphilis IgG/IgM Antibody Negative (Negative)
[2024-06-20 06:52] LABS: HIV 1/2 Ab P24 Ag Result Negative (Negative)
--- NOTE | 2024-06-20 08:01 | PM.OBPNLAB ---
Pain Control Date/time seen: 06/20/24 08:01 Comments: FHR category 1 SVE /-2 AROM clear, odorless fluid IUPC placed anticipate vaginal delivery
[2024-06-20 08:36] LABS: Alanine Aminotransferase 150 U/L (6-35); Albumin Level 3.9 g/dL (3.5-5.1); Alkaline Phosphatase 91 U/L (38-126); Anion Gap 9 mmol/L (4-12); Aspartate Amino Transferase 150 U/L (14-36); Bilirubin,Total 0.5 mg/dL (0.2-1.3); Blood Urea Nitrogen 7 mg/dL (7-17); Calcium 9.1 mg/dL (8.4-10.2); Carbon Dioxide 21 mmol/L (22-30); Chloride 104 mmol/L (98-107); Estimated CRCL calculation 217 ml/min; Estimated Glomerular Filt Rate > 60; Glucose 91 mg/dL (65-110); Potassium 4.1 mmol/L (3.4-5.0); Sodium 134 mmol/L (137-145)
--- NOTE | 2024-06-20 08:48 | WPDANESEPP ---
Anes - Eval Pre Procedure Procedure: labor epidural Date/Time: 06/20/24 08:48 Preop Diagnosis: labor pain Pre Op Diagnosis: IOL Patient Data Age: 23 Gender: F Height: 1.7 m Weight: 143.18 kg Last Vital Signs Temp 36.7 C 06/20/24 06:16 Pulse 116 H 06/20/24 08:45 BP 131/80 06/20/24 08:45 O2 Del Method Room Air 06/20/24 05:38 Allergies Allergy/AdvReac Type Severity Reaction Status Date / Time No Known Allergies Allergy Verified 03/15/24 20:21 Home Medications ?Medication ?Instructions ?Recorded ?Confirmed ?Type vit no.95-ferrous 1 tablet PO DAILY 07/14/20 06/19/24 History fumarate 28 mg-folic acid 800 mcg tablet () lurasidone 60 mg tablet 60 mg PO QPM 03/15/24 06/20/24 History sertraline 25 mg tablet 25 mg PO Q24H 06/19/24 06/19/24 History Laboratory Tests 06/19/24 06/19/24 06/19/24 12:24 18:35 18:36 WBC 5.5 K/mm3 6.3 K/mm3 (4.5-10.0) (4.5-10.0) RBC 3.83 L M/mm3 3.75 L M/mm3 (4.2-5.4) (4.2-5.4) Hgb 11.0 L g/dL 10.8 L g/dL (12.0-15.0) (12.0-15.0) Hct 33.8 L % 33.1 L % (37.0-47.0) (37.0-47.0) MCV 88.3 fl 88.3 fl (80-100) (80-100) MCH 28.7 pg 28.8 pg (26-34) (26-34) MCHC 32.5 g/dl 32.6 g/dl (32-36) (32-36) RDW 13.9 % 13.9 % (11.5-14.5) (11.5-14.5) Plt Count 164 k/mm3 173 k/mm3 (150-375) (150-375) MPV 11.2 H fl 11.2 H fl (7.4-10.4) (7.4-10.4) Immature Gran % (Auto) 0.5 % 0.6 H % (0-0.5) (0-0.5) Neut % (Auto) 69.5 % 67.9 % (45.5-73.1) (45.5-73.1) Lymph % (Auto) 18.8 % 20.7 % (18.3-44.2) (18.3-44.2) [place] % (Auto) 10.6 H % 10.1 H % (2.6-8.5) (2.6-8.5) Eos % (Auto) 0.4 % 0.5 % (0-4.4) (0-4.4) Baso % (Auto) 0.2 % 0.2 % (0.2-1.2) (0.2-1.2) Lymph # (Auto) 1.04 K/mm3 1.31 K/mm3 (0.9-3.2) (0.9-3.2) [place] # (Auto) 0.6 K/mm3 0.6 K/mm3 (0.1-0.6) (0.1-0.6) Eos # (Auto) 0.0 K/mm3 0.0 K/mm3 (0-0.3) (0-0.3) Baso # (Auto) 0.0 K/mm3 0.0 K/mm3 (0.0-0.1) (0.0-0.1) Abs Immat Gran (auto) 0.03 K/mm3 0.04 H K/mm3 (0.00-0.031) (0.00-0.031) Absolute Neuts (auto) 3.9 K/mm3 4.3 K/mm3 (1.3-6.7) (1.3-6.7) Absolute Nucleated RBC 0.000 K/mm3 0.000 K/mm3 (0.0-0.012) (0.0-0.012) Nucleated RBC % 0.0 % 0.0 % (0.0-0.2) (0.0-0.2) Sodium 135 L mmol/L 134 L mmol/L (137-145) (137-145) Potassium 3.9 mmol/L 4.0 mmol/L (3.4-5.0) (3.4-5.0) Chloride 104 mmol/L 103 mmol/L (98-107) (98-107) Carbon Dioxide 19 L mmol/L 21 L mmol/L (22-30) (22-30) Anion Gap 12 mmol/L 10 mmol/L (4-12) (4-12) BUN 8 mg/dL 8 mg/dL (7-17) (7-17) Creatinine 0.48 L mg/dL 0.56 L mg/dL (0.7-1.0) (0.7-1.0) Estim Creat Clear Calc 221 ml/min 193 ml/min Estimated GFR > 60 > 60 (59 - ) (59 - ) Glucose 94 mg/dL 95 mg/dL (65-110) (65-110) Uric Acid 4.9 mg/dL 4.7 mg/dL (2.5-7.5) (2.5-7.5) Calcium 9.0 mg/dL 8.9 mg/dL (8.4-10.2) (8.4-10.2) Total Bilirubin 0.4 mg/dL 0.4 mg/dL (0.2-1.3) (0.2-1.3) AST 186 H U/L 182 H U/L (14-36) (14-36) ALT 151 H U/L 152 H U/L (6-35) (6-35) Alkaline Phosphatase 93 U/L 91 U/L (38-126) (38-126) Total Protein 7.0 g/dL 7.0 g/dL (6.3-8.2) (6.3-8.2) Albumin 3.9 g/dL 3.9 g/dL (3.5-5.1) (3.5-5.1) Syphilis IgG/IgM Ab HIV 1&2 Ab/P24 Ag 4thGn Blood Type Antibody Screen 06/20/24 06/20/24 05:49 08:12 WBC 6.6 K/mm3 (4.5-10.0) RBC 3.98 L M/mm3 (4.2-5.4) Hgb 11.4 L g/dL (12.0-15.0) Hct 35.3 L % (37.0-47.0) MCV 88.7 fl (80-100) MCH 28.6 pg (26-34) MCHC 32.3 g/dl (32-36) RDW 14.0 % (11.5-14.5) Plt Count 194 k/mm3 (150-375) MPV 10.9 H fl (7.4-10.4) Immature Gran % (Auto) 0.6 H % (0-0.5) Neut % (Auto) 63.1 % (45.5-73.1) Lymph % (Auto) 25.1 % (18.3-44.2) [place] % (Auto) 10.3 H % (2.6-8.5) Eos % (Auto) 0.6 % (0-4.4) Baso % (Auto) 0.3 % (0.2-1.2) Lymph # (Auto) 1.66 K/mm3 (0.9-3.2) [place] # (Auto) 0.7 H K/mm3 (0.1-0.6) Eos # (Auto) 0.0 K/mm3 (0-0.3) Baso # (Auto) 0.0 K/mm3 (0.0-0.1) Abs Immat Gran (auto) 0.04 H K/mm3 (0.00-0.031) Absolute Neuts (auto) 4.2 K/mm3 (1.3-6.7) Absolute Nucleated RBC 0.000 K/mm3 (0.0-0.012) Nucleated RBC % 0.0 % (0.0-0.2) Sodium 134 L mmol/L (137-145) Potassium 4.1 mmol/L (3.4-5.0) Chloride 104 mmol/L (98-107) Carbon Dioxide 21 L mmol/L (22-30) Anion Gap 9 mmol/L (4-12) BUN 7 mg/dL (7-17) Creatinine 0.49 L mg/dL (0.7-1.0) Estim Creat Clear Calc 217 ml/min Estimated GFR > 60 (59 - ) Glucose 91 mg/dL (65-110) Uric Acid Calcium 9.1 mg/dL (8.4-10.2) Total Bilirubin 0.5 mg/dL (0.2-1.3) AST 150 H U/L (14-36) ALT 150 H U/L (6-35) Alkaline Phosphatase 91 U/L (38-126) Total Protein 7.0 g/dL (6.3-8.2) Albumin 3.9 g/dL (3.5-5.1) Syphilis IgG/IgM Ab Negative (Negative) HIV 1&2 Ab/P24 Ag 4thGn Negative (Negative) Blood Type A Positive Antibody Screen Negative Patient hx anesthesia problems: none Family hx anesthesia problems: none Results Review: All pre-operative results and documents have been reviewed as part of the pre-operative evaluation. [facility] Past Medical History Medical History (Updated 06/20/24 @ 08:49 by Dia Ramirez CRNA) Morbid obesity Anxiety Depression Hypertension affecting in third trimester Patient denies medical problems Family History Family History Grandparent Diabetes mellitus Grandparent Heart attack Sibling Epilepsy Social History Social History Smoking status: Never smoker Alcohol intake: never Substance use: never Do You Feel Safe in your Home?: Yes Lack of Transportation: No Lack of Food: Never True Current Housing: I Have Housing Concerned About Future Housing: No Difficulty Paying Gas/Electric Bills: No Difficulty Paying for Meds: No Currently Unemployed: No Education: Bachelor's Degree Difficulty w/ Childcare or Family Care: No Gender identity (if verbalized by the patient): Female Spiritual care concerns: No Exam Day of Procedure 06/20/24 08:48 Patient weight: morbidly obese Heart: regular rate and rhythm Lungs: clear to auscultation and normal air movement Airway: Mallampati scale class III Neurological: alert and oriented
[2024-06-20] MEDS: AMPICILLIN 1 GM/NS 50 ML 1 GM/50 ML BAG IVPB ×2 (10:41→14:36)
[2024-06-20] MEDS: OXYTOCIN 30 UNITS/NS 500 ML 30 UNITS/500 ML BAG IV CONT (13:05)
[2024-06-20] MEDS: ACETAMINOPHEN 500 MG TABLET 1000 MG PO (17:53)
--- NOTE | 2024-06-20 18:13 | P.PCNOB_ITS ---
OB - Vaginal Delivery Note Procedure Delivery date: 06/20/24 Events: Other (cholestasis, non alcoholic fatty liver disease) Induction method: None Delivery monitor: External FHT and Internal Uterine Route of delivery: Episiotomy description: None Laceration Description: None Specimen: Yes Quantitative Blood Loss (ml): 250 Anesthesia type: Epidural Disposition: Floor Complications: No immediate complications [place] Baby Date of : 06/20/24 Time of : 18:03 Gestational Age by Date: 34 gender: Female presentation: vertex position: Right Occiput Anterior Placenta delivery description: Spontaneous Cord Vessel Description: 3 Vessels, Nuchal Cord, Loose (x1) and Delayed Cord Clamping score one minute: 8 score five minutes: 9
[2024-06-20] MEDS: OXYTOCIN 30 UNITS/NS 500 ML 30 UNITS/500 ML BAG 125 UNITS IV CONT (18:27)
[2024-06-20] MEDS: IBUPROFEN 600 MG TABLET PO ×2 (19:55→22:20)
[2024-06-20] MEDS: WITCH HAZEL 40 PADS 1 PAD TOPICAL (19:56)
[2024-06-20] MEDS: BENZOCAINE 20% AER SPR (*SP) 56 GM CAN 1 SPRAY TOPICAL (19:56)
[2024-06-20] MEDS: ACETAMINOPHEN 325 MG TABLET 650 MG PO (22:20)
[2024-06-20] MEDS: SERTRALINE HCL 25 MG TABLET PO (22:20)
[2024-06-21 05:29] VITALS: BP 128/81; PULSE 102; RESP 18; TEMP 36; O2SAT 99
[2024-06-21 06:01] LABS: Hemoglobin 10.2 g/dL (12.0-15.0)
--- NOTE | 2024-06-21 07:56 | P.PNOB_ITS ---
OB - PN: Subj Subjective Date/time seen: 06/21/24 07:56 Interval history: pp day 1 doing well denies complaints OB - PN: Obj Data Labs 06/21/24 05:09 06/20/24 08:12 Labs: Laboratory Results - last 24 hr 06/20/24 06/21/24 08:12 05:09 Hgb 10.2 L Hct 32.0 L Sodium 134 L Potassium 4.1 Chloride 104 Carbon Dioxide 21 L Anion Gap 9 BUN 7 Creatinine 0.49 L Estim Creat Clear Calc 217 Estimated GFR > 60 Glucose 91 Calcium 9.1 Total Bilirubin 0.5 AST 150 H ALT 150 H Alkaline Phosphatase 91 Total Protein 7.0 Albumin 3.9 OB - PN A/P Plan day: 1 Plan: routine care Time Spent With Patient Time: Total time spent is greater than 50% in coordination of care (as documented) at patient's floor/unit and/or counseling patient: Review of Systems 2 Review of Systems: All systems reviewed & are unremarkable except as noted in HPI and below Exam 2 Const: General: cooperative, healthy appearing and comfortable Neck: Neck: normal visual inspection Resp: Effort & Inspection: normal respiratory effort Cardio: Rate: regular rate
[2024-06-21 08:00] VITALS: BP 130/85; PULSE 104; RESP 16; TEMP 36.7; O2SAT 99
[2024-06-21] MEDS: MULTIVIT/MIN/PREN/FOL AC/IRON TABLET 1 TAB PO (08:11)
[2024-06-21] MEDS: DOCUSATE SODIUM 100 MG CAPSULE PO ×2 (08:11→15:05)
--- NOTE | 2024-06-21 09:10 | PC.NURSE ---
Met with patient to assess needs. She is currently pumping and bottle feeding. She states that in the past she has been told her nipples are too small to breastfeed and that when she tried to breastfeed her other children it hurt her back. She is not interested in putting this baby to breast. She pumped and bottle fed her last baby exclusively and had a good milk production. Encouraged her to use the hospital pump regularly at least 8 times a day. She states that she only pumped once so far. She has a Spectra pump at home that she has used before and is familiar with. Patient is encouraged to call out if she has and questions or concerns with pumping or feeding baby. Patient agrees to call if she needs any further assistance. Reported to RN.
--- NOTE | 2024-06-21 10:30 | WPDANLDPN2 ---
Anes-Prog Note L&D Date/Time: 06/21/24 10:30 Neuro status: Neuro function grossly intact. Cardiovascular status: normal Respiratory status: normal Airway patency: baseline Mental status: baseline Vital Signs: Last Vital Signs Temp 36.7 C 06/21/24 08:00 Pulse 104 H 06/21/24 08:00 Resp 16 06/21/24 08:00 BP 130/85 06/21/24 08:00 Pulse Ox 99 06/21/24 08:00 O2 Del Method Room Air 06/21/24 08:11 Pain score (VAS): 0 I/O: Intake & Output 06/20/24 06/21/24 06/21/24 23:59 07:59 15:59 Intake Total 500 Balance 500 Patient feedback: Patient satisfied with anesthetic care.
[2024-06-21] MEDS: ACETAMINOPHEN 325 MG TABLET 650 MG PO ×2 (11:55→21:38)
[2024-06-21] MEDS: IBUPROFEN 600 MG TABLET PO ×2 (11:55→21:39)
[2024-06-21 12:29] VITALS: BP 126/77; PULSE 107; RESP 16; TEMP 36.4; O2SAT 96
[2024-06-21] MEDS: TETANUS,DIPHTHERIA,AC PERTUSSIS ADULT (0.5 ML) BOOSTRIX IM (15:14)
[2024-06-21] MEDS: SERTRALINE HCL 25 MG TABLET PO (21:39)
[2024-06-21 23:05] VITALS: BP 120/62; PULSE 98; RESP 18; TEMP 36.7; O2SAT 99
[2024-06-22] MEDS: IBUPROFEN 600 MG TABLET PO (05:15)
[2024-06-22] MEDS: ACETAMINOPHEN 325 MG TABLET 650 MG PO (05:15)
[2024-06-22 07:20] VITALS: BP 122/78; PULSE 99; RESP 16; TEMP 36.8; O2SAT 98
--- NOTE | 2024-06-22 07:54 | P.PNOB_ITS ---
OB - PN: Subj Subjective Date/time seen: 06/22/24 07:54 Interval history: pp day 2 doing well denies complaints OB - PN: Obj Data Labs 06/21/24 05:09 06/20/24 08:12 OB - PN A/P Plan day: 2 Plan: routine care and discharge home Time Spent With Patient Time: Total time spent is greater than 50% in coordination of care (as documented) at patient's floor/unit and/or counseling patient: Review of Systems 2 Review of Systems: All systems reviewed & are unremarkable except as noted in HPI and below Exam 2 Const: General: cooperative and healthy appearing Chest: Chest palpation & inspection: normal inspection of the chest Resp: Effort & Inspection: normal respiratory effort
--- NOTE | 2024-06-22 07:56 | PM.OBDSVD ---
DS: Admitting Diagnosis Discharge Date 06/22/24 Admitting Diagnosis IOL DS: Discharge Diagnosis Discharge Diagnosis (1) Vaginal delivery: Code(s): O80 - Encounter for full-term uncomplicated delivery Status: Acute OB - DS: Summary OB Procedures : None OB Procedures Intrapartum: Spontaneous Vag Delivery OB Procedures: : None Peripartum Data Laceration Description: None Episiotomy description: None Time Spent with Patient Time attestation: Total time spent providing and/or coordinating discharge services: Discharge Plan Discharge Attending physician on discharge: Phong Camilo Consulting providers: Ryanne Jenkins Discharging Clinician: Ryanne Jenkins Patient Disposition: Home Activity: pelvic rest Diet: regular Patient Instructions: Antibiotic Form Patient Language: Citizen Of [place] Stand Alone Forms: General Discharge Information Follow-up/Referrals: Ryanne Jenkins, SEGUNM [Certified Nurse Wireless Sales Representative] - 4 Weeks Discharge Medications: Continued PNV cmb#95-ferrous fumarate-FA [] 28 mg iron- 800 mcg Tablet 1 tablet PO DAILY lurasidone 60 mg tablet 60 mg PO QPM sertraline 25 mg tablet 25 mg PO Q24H Date of admission: 06/19/24 19:30 Primary Care Provider: DuaneDong Admitting Provider: Phong Camilo Attending physician on admission: Phong Camilo Condition: Stable
--- NOTE | 2024-06-22 17:27 | PC.NURSE ---
0905 Consulted with mother concerning needs and she shared her ability to independently use her breast pump without pain. Per mother she had been using the breast pump and not able to get much volume, her nipples now measured at 17mm, she was using the size 24 flange and not getting much volume and too much tissue being pulled in, she is going to try the size 21 flange and see if there is an increase in volume and if it is a better fit. Mother also voiced that she would like to see if baby would latch to her breast for a feeds, RN advised mother to call out with the next feeding for assistance. Mother is feeding appropriately for growth of and understands stimulating infant to eat if needed. Infant has had appropriate feedings in the last 24 hours meets the outcomes for weight, output, blood sugar and jaundice at this time. Reinforced understanding of milk production, transition of milk, signs of adequate intake, transition of stool, prevention/relief of engorgement, plugged ducts, mastitis, responsive watching for feeding cues, the different methods of stimulating to breastfeed 1-3 hours after the start of the last feeding, community resources, and when to call a provider using the resource of the feeding sheet along with the mom and baby guide. Mother voiced understanding of the information shared, is confident to continue effectively her infant at home, when to call for assistance, denies any additional assistance or education at this time. Reported to the Primary RN. [id number] Mother called out for assistance with latching baby to her breast, this RN was unable to go into her room at this time but her primary RN, Gareth Pettit, was able to assist her and baby latched optimally. Her primary RN reminded her if she wants to continue to latch baby to her breast she needs to do that first before using her breast pump or feeding a bottle.
[2024-06-23 15:52] VITALS: BP 127/78; PULSE 96; RESP 18; TEMP 37.3; O2SAT 100
== END 2024-06-22 13:28 | disposition home or self-care (01) | DRG 807 ==
LOC: ANHOBOP 20:00 → ANHOBPP 20:00 → ANHLDR 06-20 05:22 → ANHOB2 06-21 03:59
PROVIDERS: Advanced Practice Midwife; Admitting Provider Obstetrics & Gynecology; PCP Nurse Practitioner; Visit Provider Obstetrics & Gynecology
DX: O26.643 Intrahepatic cholestasis of pregnancy, third trimester (principal); Z37.0 Single live birth; O26.62 Liver and biliary tract disorders in childbirth; O43.113 Circumvallate placenta, third trimester; O99.892 Other specified diseases and conditions complicating childbirth; O99.344 Other mental disorders complicating childbirth; F31.9 Bipolar disorder, unspecified; K76.0 Fatty (change of) liver, not elsewhere classified; O69.81X0 Labor and delivery complicated by cord around neck, without compression, not applicable or unspecified; R00.0 Tachycardia, unspecified; Z3A.36 36 weeks gestation of pregnancy
CPT/HCPCS: 36415; 59025; 80053; 84550; 85014; 85018; 85025; 86593; 86703; 86850; 86900; 86901; 90715; A9270; G0432; J0290; J2405; J2590; J2795; J7120; J7121

== ENCOUNTER 2024-08-21 01:36 | Day surgery (SDC) | payer BC, MEDICAID, SELFPAY ==
[2024-08-14 10:20] VITALS: BMI 45.2
--- NOTE | 2024-08-14 12:26 | SUR.PREOP ---
Report to the Outpatient Waiting Room, entrance under the green pavilion located off [facility], at time __0845___ on date ___08/21/2024____. Planned Procedure Time: ____10:45____.? Time changes happen often and if your time is changed the preop area will call you the afternoon before. - You and your visitor will be asked to self-screen and do not enter if you have any COVID symptoms. Please call surgeon if you need to reschedule. - A mask is optional within the hospital at this time. Patients may have clear liquids (water, carbonated beverages, clear teas, apple juice) until 3 hours prior to surgery with a maximum of 20 ounces. 0745 - No food from midnight until time of surgery and no smoking, or chewing tobacco (or any form of nicotine). No chewing gum, candy or mints. - Infants may have breast milk until 4 hours before surgery, formula 6 hours prior to surgery. - Children will be allowed to drink immediately following surgery.? If applicable, please bring a bottle or sippy cup to assist with drinking. Juice, water, soda, and popsicles are readily available.? For infants on formula, please bring formula the day of surgery.? Pacifiers are allowed. Take only the following medications with a SIP of water on the morning of surgery: ___Sertraline, Wellbutrin DO NOT STOP ANY OF YOUR OTHER PRESCRIPTION MEDICATIONS PRIOR TO SURGERY EXCEPT THE FOLLOWING Hold all vitamins and supplements for 3 days per anesthesiologist. Medications to discontinue per physician ____Prenatal vitamin Date to take last dose 08/17/24 Please no make-up, nail amharic, hairspray, perfume, deodorant, or body powder the day of surgery.? No jewelry (including any body piercings) or valuables the day of surgery, leave them at home.? Please take a shower or bath the night before, or the morning of, surgery with an antibacterial soap.? Wear comfortable, loose fitting clothing.? Children are encouraged to wear pajamas. - Jewelry must be removed prior to entering the operating room.? Rings and piercings that are not removed may be cut off. - The hospital will not accept responsibility for valuables.? - Please leave all valuables, including medications, at home the day of surgery. If you are going home after surgery, a licensed tow car driver must drive you home.? - NO public transportation without another adult if you receive anesthesia. - We recommend that an adult stay with you for 24 hours following discharge. - We also recommend that you do not drive, make important decision, drink alcoholic beverages, or take any drugs that were not prescribed by your health care provider for at least 24 hours after your discharge time. For Pediatric surgeries, we recommend two adults accompany the child home. Follow any additional instructions given to you from your surgeon. Telephone instructions given to ____Valencia and asked if any additional questions and then verbalized understanding. Patient advised to call surgeon office or pre surgery nurse liaison [phone] if any additional questions. Patient instructed to call calender machine operator helper with all questions regarding breast feeding and anesthesia.
[2024-08-21] VITALS (9 sets, daily range): BP systolic 92–130; BP diastolic 45–76; PULSE 74–93; RESP 14–20; TEMP 36.2–37.1; O2SAT 95–97
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
--- OUTSIDE RECORDS SUMMARY | 2024-08-21 01:39 | XMS_ITS ---
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 Name Role Phone Jackie Woods Primary Care Provider Marva Fontenot Unavailable [phone] REASON FOR VISIT lab Medications Medication SIG (Take, Route, Frequency, Duration) Notes Start Date End Date Status Wellbutrin XL 150 MG 1 tablet in the mor leoncio Orally Once a day for 30 day(s) Active buPROPion HCl ER (XL) 150 MG 1 tablet in the morning Orally Once a day for 60 days 07/10/2024 Active Propranolol HCl 40 MG 1 tablet Orally Twice a day for 30 days As needed for anxious distress Unknown traZODone HCl 100 MG 1 tablet as needed at bedtime Orally Once a day for 30 days As needed for sleep induction Unknown Rybelsus 3 MG 1 tablet every morni ng 30 minutes before eating Orally 10/12/2023 Unknown Sertraline HCl 25 MG 1 tablet Orally Onc e a day for 60 days Active Lurasidone HCl 60 MG 1 tablet in the celia leonico with food Orally Once a day for 60 days Active Social History Sex Assigned At : Social History Observation Description Sex Assigned At Female Encounters Encounter Location Date Provider Diagnosis [address] [address] 08/20/2024 Marva Fontenot Plan Of Treatment No Information Progress Notes * SHEILA LinhDOB:2000 (23 yo F)Acc No.[id number]:08/20/2024 UNLOCKED PROGRESS NOTE Patient: Linh TOWNSEND Provider: WENDY Lopez :2000 A ge:23 Y S ex:Female Date:08/20/2024 Address:[address] [place], [place] [id number] Pcp:Jackie Woods Subjective: * Chief Complaints: * 1 . Lab. * Medical History: * Medications: T aking Lurasidone HCl 60 MG Tablet 1 tablet in the evening with food Orally Once a day , Taking Sertraline HCl 25 MG Tablet 1 tablet Orally Once a day , Taking buPROPion HCl ER (XL) 150 MG Tablet Extended Release 24 Hour 1 tablet in the morning Orally Once a day , Taking Wellbutrin XL 150 MG Tablet Extended Release 24 Hour 1 tablet in the morning Orally Once a day , Unknown Rybelsus 3 MG Tablet 1 tablet every morning 30 minutes before eating Orally , Unknown traZODone HCl 100 MG Tablet 1 tablet as needed at bedtime Orally Once a day As needed for sleep induction, Unknown Propranolol HCl 40 MG Tablet 1 tablet Orally Twice a day As needed for anxious distress Objective: * Vitals: Assessment: Plan: * Treatment: * * Electronic signature of Marce Fontenot on 08/21/2024 at 01:39 AM CDT Sign off status: Pending * Provider: WENDY Lopez Date: 0 08/20/2024 Generated for Evy winchester/Emanuel/Corry on: 08/21/2024 01:39 AM CDT
--- OUTSIDE RECORDS SUMMARY | 2024-08-21 01:40 | XMS_ITS | Data Portability ---
Author Organization [facility] [place] Address [address] [place] [address] [place] [address] Assessment Encounter Date Assessment Date Assessment LastModified by Organization Details LastModified Time 06/19/2024 06/19/2024 Patient is 36___weeks . Discussed plan. Not available 06/19/2024 13:36:01 Plan of Treatment Reminders Order Date Submit Date Provider Last Modified By Organization Details Last Modified Time Details Appointments SURG Salpingec reynaldo 2024 10:45A Cosmo CAMILO MD Not available Not available Not available SURG POST OP 2024 03:00P Cosmo CAMILO MD Not available Not available Not available Lab None recorded. Referral None recorded. Procedures None recorded. Surgeries None recorded. Imaging US, obstetric , biophysic al profile + non-stres s test [facility] [address], [address], [place], [address], 06/19/2024 14:10:52 non-stres s test 2024 025 [email or web address] [place], [address], [address], [place], [address], 06/19/2024 23:47:44 non-stres s test 2024 025 hakeem [email or web address] [place], [address], [place], [address], 06/15/2024 00:29:08 Medication Orders None recorded. Patient TargetsNo targets recorded. Patient InstructionsNo instructions recorded. Reason for Referral None Reported. Results Created Date Observation Date Name Description Value Unit Range Abnormal Flag Note LastModifiedBy Organization Detail LastModifiedTime 06/19/19 25 06/18/2024 CMP(C OMPRE HENSI VE METAB OLIC PANEL ) sodium 135 mmol/ L 133-14 6 Not Available [facility] (Lab) [address], [place], [address], 06/19/2024 13:55:59 06/19/19 25 06/18/2024 CMP(C OMPRE HENSI VE METAB OLIC PANEL ) potassium 4.4 mmol/ L 3.5-5. 1 Not Available [facility] (Lab) [address], [place], [address], 06/19/2024 13:55:59 06/19/19 25 06/18/2024 CMP(C OMPRE HENSI VE METAB OLIC PANEL ) chloride 102 mmol/ L 98-107 Not Available [facility] (Lab) [address] [place], [address], 06/19/2024 13:55:59 06/19/19 25 06/18/2024 CMP(C OMPRE HENSI VE METAB OLIC PANEL ) carbon dioxide 24 mmol/ L 21-31 Not Available [facility] (Lab) [address] [place], [address], 06/19/2024 13:55:59 06/19/19 25 06/18/2024 CMP(C OMPRE HENSI VE METAB OLIC PANEL ) anion gap 9 mmol/ L 4-13 Not Available [facility] (Lab) [address] [place], [address], 06/19/2024 13:55:59 06/19/19 25 06/18/2024 CMP(C OMPRE HENSI VE METAB OLIC PANEL ) blood urea nitrogen 11 mg/dL 7-[address] [facility] (Lab) [address], [place], [address], 06/19/2024 13:55:59 06/19/19 25 06/18/2024 CMP(C OMPRE HENSI VE METAB OLIC PANEL ) creatinine 0.60 mg/dL 0.60-1 .30 Not Available [facility] (Lab) [address], [place], [address], 06/19/2024 13:55:59 06/19/19 25 06/18/2024 CMP(C OMPRE HENSI VE METAB OLIC PANEL ) egfrcr (CKD-epi 2020) >90 mL/mi n/1.7 3_m2 >=60 Not Available [facility] (Lab) [address], [place], [address], 06/19/2024 13:55:59 06/19/19 25 06/18/2024 CMP(C OMPRE HENSI VE METAB OLIC PANEL ) calcium 9.5 mg/dL 8.3-10 .5 Not Available [facility] (Lab) [address], [place], [address], 06/19/2024 13:55:59 06/19/19 25 06/18/2024 CMP(C OMPRE HENSI VE METAB OLIC PANEL ) glucose 70 mg/dL 70-100 Not Available [facility] (Lab) [address] [place], [address], 06/19/2024 13:55:59 06/19/19 25 06/18/2024 CMP(C OMPRE HENSI VE METAB OLIC PANEL ) protein, total 6.9 g/dL 6.4-8. 3 Not Available [facility] (Lab) [address], [place], [address], 06/19/2024 13:55:59 06/19/19 25 06/18/2024 CMP(C OMPRE HENSI VE METAB OLIC PANEL ) albumin 4.1 g/dL 3.5-5. 0 Not Available [facility] (Lab) [address], [place], [address], 06/19/2024 13:55:59 06/19/19 25 06/18/2024 CMP(C OMPRE HENSI VE METAB OLIC PANEL ) ALT 103 units /L 9-43 high Not Available [facility] (Lab) [address], [place], [address], 06/19/2024 13:55:59 06/19/19 25 06/18/2024 CMP(C OMPRE HENSI VE METAB OLIC PANEL ) alkaline phosphatase 92 units /L 34-104 Not Available [facility] (Lab) [address], [place], [address], 06/19/2024 13:55:59 06/19/19 25 06/18/2024 CMP(C OMPRE HENSI VE METAB OLIC PANEL ) AST 121 units /L 13-39 high Not Available [facility] (Lab) [address], [place], [address], 06/19/2024 13:55:59 06/19/19 25 06/18/2024 CMP(C OMPRE HENSI VE METAB OLIC PANEL ) bilirubin, total 0.6 mg/dL 0.2-1. 2 Not Available [facility] (Lab) [address], [place], [address], 06/19/2024 13:55:59 06/19/19 25 06/18/2024 BILE ACIDS , TOTAL bile acids, total 24 umol/ L 0-10 high Test Perfo rmed by: Tony [facility]mond [facility] [address] [address] Not Available [facility] (Lab) [address] [place], [address], 06/19/2024 13:55:59 06/20/19 25 06/19/2024 CULTU RE: GROUP B STREP SCREE N, REFLE X SUSCE PTIBI LITY result report SEE RESULT S BELOW Test: Cultu re: Group B Strep , Refle x Susce ptibi lity ([facility]/ [facility]/K H/VWH ) Speci men Sourc e: Vagin a/Rec loki Speci men Type: Vagin al/Re ctal Speci men Date: 025 1408 Resul t Date: 2024 1056 Resul t Statu s: Final resul t Abnor mal: No Resul ting Lab: [facility] [address] [facility] [address] Tel: CULTU RE ----- ----- ----- --- No Group B strep isola adria at 2 days (sirisha ctive broth enhan cemen t) Not Available [facility] (Lab) [address], [place], [address], 06/22/2024 12:00:40 05/31/19 25 05/29/2024 US, obste tric, follo w-up No observ ation record ed. [email or web address] [facility] [address] [place] [address], [address], 06/19/2024 17:48:13 06/07/19 25 06/06/2024 US, obste tric, bioph ysica l profi le + non-s tress test No observ ation record ed. [email or web address] [place] [address], [place], [address], 06/06/2024 18:23:10 06/07/19 25 06/06/2024 US, obste tric, follo w-up No observ ation record ed. [email or web address] [address], [place], [address], 06/07/2024 15:54:01 06/07/19 25 06/06/2024 non-s tress test No observ ation record ed. [email or web address] [place] [address], [place], [address], 06/06/2024 19:15:13 06/07/19 25 06/06/2024 non-s tress test No observ ation record ed. [email or web address] [place] [address], [place], [address], 06/06/2024 19:20:12 06/14/19 25 06/13/2024 US, obste tric, bioph ysica l profi le + non-s tress test No observ ation record ed. [email or web address] [place] [address], [place], [address], 06/13/2024 18:31:15 06/14/19 25 06/13/2024 US, obste tric, bioph ysica l profi le + non-s tress test No observ ation record ed. [email or web address] [address] [facility], [place], [address], 06/13/2024 22:20:37 06/15/19 25 06/13/2024 non-s tress test No observ ation record ed. [email or web address] [place] [address], [place], [address], 06/14/2024 09:43:48 06/15/19 25 06/13/2024 non-s tress test No observ ation record ed. [place] [address], [place], [address], 06/14/2024 10:08:22 06/19/19 25 06/18/2024 non-s tress test No observ ation record ed. [address] [facility] [address], [place], [address], 06/20/2024 10:56:39 06/20/19 25 06/19/2024 US, obste tric, bioph ysica l profi le + non-s tress test No observ ation record ed. [email or web address] [address], [place], [address], 07/22/2024 21:22:31 06/20/19 25 06/19/2024 US, obste tric, bioph ysica l profi le + non-s tress test No observ ation record ed. [email or web address] [place] [address], [place], [address], 06/19/2024 14:10:52 06/20/19 25 06/19/2024 non-s tress test No observ ation record ed. [email or web address] [place] [address], [place], [address], 06/19/2024 18:43:08 06/20/19 25 06/19/2024 non-s tress test No observ ation record ed. [email or web address] [place] [address], [place], [address], 06/19/2024 18:45:42 Result Notes None recorded. Problems Name Problem SNOMED Code Status Onset Date Resolution Date Notes Provider Name and Address Organization Details Recorded Time Pregnanc y detectio n examinat ion Completed 201703/25/2020 Encounte r for pregnanc y test, result positive ;Practic e ID: 0001 Jackie Oviedo MD [address], [place], [address], [facility] 10:33:48 Normal pregnanc y in multigra lupis [id number] 74602 Completed 201703/25/2020 Encounte r for suprvsn of normal pregnanc y, first trimeste r;Practi ce ID: 0001 Jackie Oviedo MD [address], [place], [address], [facility] 10:33:46 Antenata l screenin g Completed 201703/25/2020 Encounte r for other specifie d antenata l screenin g;Practi ce ID: 0001 Jackie vOiedo MD [address], [place], [address], [facility] 10:33:13 Pregnanc y test negative 721848598 Completed 201703/25/2020 Encounte r for pregnanc y test, result negative ;Recorde d Elsewher e: No [facility] S ource: EHR Deboning Team Leader elmo: N Practi ce ID: 0001 Scott lable Time: 02:30:00 PM Jackie Oviedo MD [address], [place], [address], [facility] 10:34:03 Jaki ry postpart um mood disturba nce 26542801 Completed 201703/25/2020 Postpart um mood disturba nce;Luis Alberto rded Elsewher e: No Locat ion: [facility] S ource: EHR Deboning Team Leader elmo: N Practi ce ID: 0001 Scott lable Time: 02:30:00 PM Jackie Oviedo MD [address], [place], [address], [facility] 10:34:32 Lochia finding Completed 201703/25/2020 Encounte r for routine postpart um follow-u p;Record ed Elsewher e: No Locat ion: [facility] S ource: EHR Deboning Team Leader elmo: N Practi ce ID: 0001 Scott lable Time: 02:30:00 PM Jackie Oviedo MD [address], [place], [address], [facility] 10:33:43 Blood leukocyt e number above referenc e range 115856028 Completed 201703/25/2020 Elevated white blood cell count, unspecif ied;Luis Alberto rded Elsewher e: No [facility] S ource: EHR Deboning Team Leader elmo: N Practi ce ID: 0001 Scott lable Time: 11:30:00 AM Jackie Oviedo MD [address], [place], [address], [facility] 10:33:[address] Concept Completed 201703/25/2020 Encntr for routine child health exam w/o abnormal findings ;Recorde d Elsewher e: No Locat ion: [facility] S ource: EHR Deboning Team Leader elmo: N Practi ce ID: 0001 Scott lable Time: 10:15:00 AM Jackie Oviedo MD [address], [place], [address], [facility] 10:34:18 Syphilis test finding 840539227 Completed 201703/25/2020 Encntr screen for infectio ns w sexl mode of transmis s;Record ed Elsewher e: No [facility]at [facility] S ource: EHR Deboning Team Leader elmo: N Practi ce ID: 0001 Scott lable Time: 10:15:00 AM Jackie Oviedo MD [address], [place], [address], [facility] 10:34:27 Emotiona l state finding Completed 201703/25/2020 Anxiety depressi on;Recor ded Elsewher e: No Locat ion: [facility] S ource: EHR Deboning Team Leader elmo: N Practi ce ID: 0001 Scott lable Time: 11:15:00 AM MD [address], [place], [address], [facility] 1 10:33:16 Infectio n screenin g Completed 201703/25/2020 Encounte r for screenin g for oth infec/pa rastc diseases ;Recorde d Elsewher e: No Locat ion: [facility] S ource: EHR Deboning Team Leader elmo: N Lawanda ce ID: 0001 Scott lable Time: 10:15:00 AM Jackie Oviedo MD [address], [place], [address], [facility] 1 10:33:34 Pregnanc y, childbir th and puerperi um finding Completed 201703/25/2020 Encounte r for supervis ion of normal 1st pregnanc y;Record ed Elsewher e: No Locat ion: [facility] S ource: EHR Deboning Team Leader elmo: N Lawanda ce ID: 0001 Scott lable Time: 11:30:00 AM Jackie Oviedo MD [address], [place], [address], [facility] 1 10:34:01 Large fetus 315065328 Completed 201703/25/2020 Maternal care for excess growth, third trimeste r, unsp;Rec orded Elsewher e: No [facility]at ion[facility] S ource: EHR Deboning Team Leader elmo: Negrito Webber ce ID: 0001 Scott lable Time: 11:00:00 AM Jackie Oviedo MD [address], [place], [address], [facility] 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 1 10:34:20 Pregnanc y, childbir th and puerperi um finding Completed 201703/25/2020 Encntr for suprvsn of normal first preg, third trimeste r;Record ed Elsewher e: No Locat ion: [facility] S ource: EHR Deboning Team Leader elmo: N Practi ce ID: 0001 Scott lable Time: 04:45:00 PM Jackie Oviedo MD [address], [place], [address], [facility] 10:34:08 Body mass index 30+ - obesity 754200869 Active 2017 Catrachita jane, [facility] 10:06:52 Urinary tract infectio us disease 39818979 Completed 201703/25/2020 Urinary tract infectio n, site not specifie d;Record ed Elsewher e: No Locat ion: Mary salmon [facility] S ource: EHR Deboning Team Leader elmo: N Cristhianti ce ID: 0001 Scott lable Time: 01:00:00 PM Jackie Oviedo MD [address], [place], [address], [facility] 10:34:34 Secondar y amenorrh ea 315451080 Completed 201703/25/2020 Secondar y amenorrh ea;Recor ded Elsewher e: No Locat ion: Mary salmon [facility] S ource: EHR Deboning Team Leader elmo: N Cristhianti ce ID: 0001 Scott lable Time: 10:15:00 AM Jackie Oviedo MD [address], [place], [address], [facility] 10:34:15 Gestatio n period, 36 weeks 11526635 Completed 201703/25/2020 36 weeks gestatio n of pregnanc y;Record ed Elsewher e: No Locat ion: Mary salmon [facility] S ource: EHR Deboning Team Leader elmo: N Cristhianti ce ID: 0001 Scott lable Time: 11:00:00 AM Jackie Oviedo MD [address], [place], [address], [facility] 10:33:21 Procedur e Completed 201703/25/2020 Encounte r for checking , reinsert ion or removal of implanta ble subderma l contrace ptive;Re corded Elsewher e: No Locat ion: [facility] S ource: EHR Deboning Team Leader elmo: N Practi ce ID: 0001 Scott lable Time: 02:30:00 PM Jackie Oviedo MD [address], [place], [address], [facility] 10:34:[address] Concept Completed 201703/25/2020 Decrease d movement s, third trimeste r, unsp;Pra ctice ID: 0001 Jackie Oviedo MD [address], [place], [address], [facility] 10:34:22 False labor at or after 37 complete d weeks of gestatio n [id number] Completed 201703/25/2020 False labor at or after 37 complete d weeks of gestatio n;Practi ce ID: 0001 Jackie Oviedo MD [address], [place], [address], [facility] 10:33:18 Gestatio n period, 38 weeks 96686115 Completed 201703/25/2020 38 weeks gestatio n of pregnanc y;Practi ce ID: 0001 Jackie Oviedo MD [address], [place], [address], [facility] 10:33:23 Lacerati on of female perineum Completed 201703/25/2020 Second degree perineal lacerati on during delivery ;Practic e ID: 0001 Jackie Oviedo MD [address], [place], [address], [facility] 10:33:37 Single live from singleto n pregnanc y [id number] Completed 201703/25/2020 Single live ;Pr actice ID: 0001 Jackie Oviedo MD [address], [place], [address], [facility] 10:34:29 Gestatio n period, 39 weeks 73126388 Completed 201703/25/2020 39 weeks gestatio n of pregnanc y;Practi ce ID: 0001 Jackie Oviedo MD [address], [place], [address], [facility] 10:33:[address] Concept Completed 201703/25/2020 Encounte r for surveill ance of other contrace ptives;P ractice ID: 0001 Jackie Oviedo MD [address], [place], [address], [facility] 10:34:24 Pregnanc y 11604497 Completed 201908/01/2020 Tavia Murray null, [facility] 22:05:51 Anxiety disorder 812239025 Completed Busmaday Bautistah l null, [facility] 12:25:20 Obesity 507048243 Completed BMI - Antenata l testing at 32 wks Mary Osoriotieh l null, [facility] 12:25:20 Small head 162594943 Completed Mary Bohmarietieh l null, [facility] 12:25:20 Nausea and vomiting 62882432 Completed [email or web address] Osoriotieh l null, [facility] 12:25:20 Pregnanc y 41664100 Completed 202307/09/2024 Tavia jane, [facility] 5 22:05:51 Pregnanc y-induce d hyperten jelly 66235567 Completed HISTORIC LITTLE Camilo MD [address], [place], [address], [facility] 4 12:08:40 Large for gestatio n age fetus 396473962 Completed HISTORIC LITTLE Camilo MD [address], [place], [address], [facility] 4 12:09:08 Placenta circumva llata 2461037 Completed Phong Camilo MD [address], [place], [address], [facility] 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 referall in 1-2 weeks faxed 03/16 labs drawn at hospital 24 hr urine in process Schedule d [facility] 04/04/24 0945 Level II US and Office visit Leann jane, [facility] 5 15:17:17 Tachycar sangita [id number] Completed MATERAL - cardiolo gy Phong Camilo MD [address], [place], [address], [facility] 5 11:12:10 Suspecte d macrosom ia 526646348 Completed Greater than 99th percenti fredy Camilo MD [address], [place], [address], [facility] 5 10:56:02 Female steriliz ation Completed MD [address]fer [address], [place], [address], [facility] 10:56:20 Cholesta sis 14498820 Completed 2024 Tavia jane, [facility] 13:35:52 History of cardiova scular surgery 795911869 Active 2024 heart surgery age 1 Tavia Murray null, [facility] 5 13:46:05 Problem Notes None recorded. Procedures Surgical History Date Name Laterality Status Provider Name and Address Organization Details Recorded Time Date of Last Pap Smear completed Nimisha Barnett [facility] 01/31/2024 11:33:36 021 Control Implant Removal completed Phong Camilo MD [address], [place], [address], [facility] 09/08/2020 20:58:00 021 Nexplanon Insert completed Emily Knight [facility] 09/03/2020 11:18:52 021 NST completed Jackie Oviedo MD [address], [place], [address], [facility] 07/07/2020 11:36:35 021 NST completed Jackie Oviedo MD [address], [place], [address], [facility] 06/16/2020 13:31:19 020 Control Implant Removal completed Bianka Prakash MARTHA- [address], [place], [address], [facility] 10/30/2019 10:42:19 019 Appendectomy completed Anne Maynard [facility] 01/28/2020 15:21:38 018 Cholecystectomy completed Mariel Landrum [facility] 12/28/2019 14:44:10 000 procedure on heart completed Tavia Murray [facility] 06/19/2024 13:43:12 Imaging Results None recorded. Procedure Notes None recorded. Medical Equipment None Reported. Allergies Allergen ID Allergen Name Allergen Category Reaction Reaction Severity Criticality Documentation Date Start Date Code Code System Note Provider Name and Address Organization Details Recorded Time 275 ketamine medicatio n Not available Not available Not available 01/28/2020 6130 RxNorm Anne Maynard [facility] 0 15:26:20 Medications Name Sig Start [...] every 12 hours with food 12/22 completed [facility] ed Elsewher e: No Locat ion: [facility] M odify By: [email or web address] E ayleen DateTime : 11/01/19 01:00:00 PM Not Available Not Available Not Available propranol ol 40 mg tablet TAKE 1 TABLET BY MOUTH TWICE A DAY NEEDED FOR ANXIOUS DISTRESS 01/30 completed Not Available Not Available Not Available Zoloft 50 mg tablet take 1 tablet by oral route every day 04/21 completed Prescrib ed Elsewher e: No Locat ion: [facility] M odify By: kpanyik Tyree hall DateTime : [...] weeks 02/14 completed Prescrib jas Jorgensen e: No Locat ion: [facility] odify By: adalid abbasi DateTime : 02/02/20 [...] Not Available Not Avai lable Not Available Wellbutri n XL active Not Available Not Available Not Available lurasidon e 40 mg tablet [...] Available Vitals Date Recorded Body height Body weight Body height Body mass index (BMI) Body weight Systolic blood pressure Diastolic blood pressure Systolic blood pressure Diastolic blood pressure Provider Name and Address Organization Details Last Updated DateTime 5 170.18 cm 430824. 28835 g 170.18 cm 49.8 kg/m2 166912. 37 g 127 mm[Hg] 81 mm[Hg] 127 mm[Hg] 81 mm[Hg] Tavia Murray [facility] 5 09:33:56 Date Recorded Body weight Body height Body mass index (BMI) Body weight Systolic blood pressure Diastolic blood pressure Systolic blood pressure Diastolic blood pressure Provider Name and Address Organization Details Last Updated DateTime 5 992752. 32753 g 170.18 cm 49.5 kg/m2 034485. 19 g 128 mm[Hg] 87 mm[Hg] 128 mm[Hg] 87 mm[Hg] Tavia Murray [facility] 5 18:41:05 Date Recorded Body height Body mass index (BMI) Body weight Systolic blood pressure Diastolic blood pressure Provider Name and Address Organization Details Last Updated DateTime 08/01/2024 170.18 cm 45.3 kg/m2 794817.1 9 g 116 mm[Hg] 78 mm[Hg] Tavia Murray [facility] 5 10:30:00 Social History Question Answer Notes LastModified by Organizat ion Details LastModified Time Tobacco Smoking Status [facility]2020 10:34:12 Do You Have An Advance Directive? No Information n ot available 05/19/2020 Are You Blind Or Do You Have [...] Or The Highest Degree You Have Received? [id number] Information not available 05/19/2020 Are There Any Guns Present In Your Home? Yes Information not available 05/19/2020 Do You Use Protection During Sex? No Information not available 05/19/2020 Do You Use Your Seat Belt Or Car Seat Routinely? Yes Information not available 05/19/2020 Are You Sexually Active? Yes [email or web address] Information not available 05/23/2024 Do You Have Smoke And Carbon Monoxide Detectors In Your Home? Yes Information not available 05/19/2020 How Much Tobacco Do You Smoke? No Information not available 05/19/2020 Do You Use Sunscreen Routinely? No Information not available 05/19/2020 Have You Used IV Drugs? No Information not available 05/19/2020 Do You Have Difficulty Walking Or Climbing Stairs? No [email or web address] Information not available 05/23/2024 Sex: Unknown Functional Status Question Answer Note LastModified by Organizat ion Details LastModified Time Do you use any illicit or recreational drugs? No Information not available 05/19/2020 What is your level of alcohol consumption? None [email or web address] Information not available 12/31/2019 Are you able to walk? [email or web address] Information not available 05/19/2020 Are you able to care for yourself? Yes [email or web address] Information n ot available 05/23/2024 Do you have difficulty dressing or bathing? No [email or web address] Information not available 05/23/2024 What is your exercise level? Occasional Information not available 05/19/2020 Mental Status Question Answer Note LastModified by Organization D etails LastModified Time Do you feel stressed (tense, restless, nervous, or anxious, or unable to sleep at night)? [id number] Information not available 05/19/2020 Family History Relationship Description Onset Age of [...] ) N Other Y Drug/Latex Allergies/Reactions Y Blood Transfusion N Breast Cancer N Dermatologic Disorders N Lung Disease N Defects or Inherited Disease N Breast Problem N Gestational Diabetes N Hematologic disorders Y Anesthesia Complications N History of STI N Deep Vein Thrombosis N Polycystic ovary syndrome N Anxiety Disorder Y Autoimmune disease N Arthritis N Polyps N Infertility N Acid Reflux (GERD) N History of abnormal pap N Cancer N Varicosities N Stroke N Neurologic/Epilepsy N Endometriosis N High Cholesterol N Fibromyalgia N Headaches N Kidney Disease N Heart Problems Y [...] of Flow (days) 4 Current Control Method None Age at First Child 17 Are cycles usually normal Y Date of Last Colonoscopy Frequency of Cycle (Q days) 26 Sexually Active? Y Menses Monthly Y Date of DEXA bone scan Age of first menstrual cycle 10 Date of Last Pap Smear 12/13/2023 Sexual Problems? Y LMP Definite N Obstetrics History GPAL:G 3 P 2 1 0 3 Type Value Full Term 2 Premature 1 Living 3 Total 3 Past Encounters Encounter ID Performer Location Encounter Start Date Encounter Closed Date Diagnosis/Indication Diagnosis SNOMED-CT Code Diagnosis ICD10 Code Diagnosis Note [id number] Bianka Prakash [facility] [address] [address] 10/02/2019 11:13:52 10/02/2019 11:52:01 Gynecologic examination 27659606 Z01.419 Take Calcium with Vitamin D 1200mg [...] Pap done Wants nexplanon out. Will schedule. [id number] [facility] [address],[facility] [place] [address] 10/30/2019 10:08:11 10/30/2019 11:32:44 Removal of subcutaneous contraceptive 862084073 Z30.46 Removal site was cleansed with betadine [id number] lidocaine used for anesthesia . Device was removed in normal fashion without difficulty . Steristips and pressure bandage placed.Con doms for control. [id number] Phong Camilo MD [facility] [address],[place] [address] 12/31/2019 14:24:47 01/02/2020 11:46:10 [id number] [facility] [address],[place] [address] 12/31/2019 14:25:08 12/31/2019 17:46:32 test positive 960845326 Z32.01 Risk factors addressed: Tobacco Cessation, Safe [...] ve healthcare . Severe anx iety (panic) 54647400 F41.0 Pt is calling psychiatri st today to schedule visit. Discussed medication options at this time. Pt would like to start buspar while awaiting visit with psych. We went over risks and benefits. Specific dosing instructio ns given. No thoughts of harming herself or others. If any worsening of symptoms she will notify us right away. Pt taken off work x 2 weeks to allow for medication adjustment . [id number] MD Nazario Fagan [address],[place] [address] 01/28/2020 14:21:19 01/29/2020 12:22:45 screening 307246015 Z36.82 [id number] MD Nazario Fagan [address],[place] [address] 01/28/2020 14:22:12 01/29/2020 12:24:11 Nausea and vomiting 77570957 R11.2 Routine an tenatal care 443461739 Z34.81 [id number] Jackie Oviedo MD [facility] [address],[place] [address] 02/25/2020 15:40:18 02/26/2020 15:25:28 Routine care 160180297 Z34.02 [id number] Jackie Oviedo MD [facility] [address],[place] [address] 03/24/2020 15:39:50 03/24/2020 17:04:04 screening for malformation 430089229 Z36.3 [id number] Jackie Oviedo MD [facility] [address],[place] [address] 03/24/2020 15:40:17 03/25/2020 14:23:29 Routine care 174045477 Z34.02 Maternal o besity complicating , childbirth and the puerperium, antepartum 3401324653 07 O99.212 [id number] MD Nazario Fagan [address],[place] [address] 04/21/2020 11:02:04 04/21/2020 12:03:10 Routine care 553253512 Z34.81 [id number] MD Nazario Fagan [address],[place] [address] 04/21/2020 11:03:13 04/21/2020 11:54:32 screening 411801998 Z36.2 [id number] MD Nazario Fagan [address],[place] [address] 05/19/2020 13:56:34 05/19/2020 14:54:57 condition affecting obstetrical care of mother 890112886 O35.0XX0 Z3A.28 [id number] MD Nazario Fagan [address],[place] [address] 05/19/2020 13:57:29 05/19/2020 15:49:04 Routine care 579921630 Z34.81 [id number] MD Nazario Fagan [address],[place] [address] 06/02/2020 12:42:42 06/03/2020 22:30:30 Routine care 070847902 Z34.81 [id number] MD Nazario Fagan [address],[place] [address] 06/16/2020 10:34:06 06/16/2020 11:28:34 Maternal obesity complicating , childbirth and the puerperium, antepartum 3254602309 07 O99.213 [id number] Phong Camilo MD [facility] [address],[place] [address] 06/16/2020 10:34:23 06/16/2020 12:30:16 Maternal obesity complicating , childbirth and the puerperium, antepartum 9344319883 07 O99.210 O36.8330 Z3A.32 [id number] Jackie Oviedo MD [facility] [address],[place] [address] 06/16/2020 10:35:00 06/16/2020 14:40:28 Maternal obesity complicating , childbirth and the puerperium, antepartum 1627673474 07 O99.212 Anxiety in 494 1815730 9109 F41.9 [id number] MD Nazario Fagan [address],[place] [address] 06/19/2020 11:30:59 06/19/2020 12:41:36 Maternal obesity complicating , childbirth and the puerperium, antepartum 2971451575 07 O99.213 [id number] MD Nazario Fagan [address],[place] [address] 06/19/2020 12:02:37 06/19/2020 12:42:40 condition affecting obstetrical care of mother 404852867 O36.8330 Z3A.32 [id number] Emily Knight [facility] [address],[place] [address] 06/23/2020 10:30:25 06/23/2020 11:42:13 Routine care 871050491 Z34.93 [id number] MD Nazario Fagan [address],[place] [address] 06/23/2020 10:30:09 06/23/2020 11:44:32 Maternal obesity complicating , childbirth and the puerperium, antepartum 8360343017 07 O99.213 [id number] MD Nazario Fagan [address],[place] [address] 06/23/2020 11:24:44 06/23/2020 12:21:44 Abnormal heart rate 914363401 O36.8330 Z3A.33 [id number] MD Nazario Fagan [address],[place] [address] 06/26/2020 11:34:19 06/26/2020 12:10:03 Maternal obesity complicating , childbirth and the puerperium, antepartum 6883612718 07 O99.213 [id number] MD Nazario Fagan [address],[place] [address] 06/26/2020 11:59:12 06/26/2020 13:21:24 condition affecting obstetrical care of mother 097377189 O36.8330 [id number] Emily Knight [facility] [address],[place] [address] 06/30/2020 10:38:59 06/30/2020 11:39:46 Routine care 349668466 Z34.93 - induced hypertension 07321661 O13.9 [id number] MD Nazario Fagan [address],[place] [address] 06/30/2020 10:38:05 06/30/2020 13:41:48 Maternal obesity complicating , childbirth and the puerperium, antepartum 4871120891 07 O99.213 [id number] MD Nazario Fagan [address],[place] [address] 07/03/2020 11:28:53 07/03/2020 12:23:42 Maternal obesity complicating , childbirth and the puerperium, antepartum 3662989665 07 O99.213 [id number] MD Nazario Fagan [address],[place] [address] 07/03/2020 12:12:14 07/03/2020 12:30:43 AND/OR placental disorder affecting management of mother 96337446 O36.8330 Z3A.34 [id number] MD Nazario Quiroz [address],[place] [address] 07/07/2020 10:29:05 07/07/2020 11:40:19 Maternal obesity complicating , childbirth and the puerperium, antepartum 7083344636 07 O99.213 [id number] MD Nazario Quiroz [address],[place] [address] 07/07/2020 10:30:06 07/07/2020 11:39:52 Maternal obesity complicating , childbirth and the puerperium, antepartum 2352051826 07 O99.213 [id number] MD Nazario Fagan [address],[place] [address] 07/10/2020 11:31:04 07/10/2020 12:35:46 Maternal obesity complicating , childbirth and the puerperium, antepartum 9165813039 07 O99.213 [id number] Phong Camilo MD [facility] [address],[place] [address] 07/10/2020 12:08:41 07/10/2020 12:36:09 Maternal obesity complicating , childbirth and the puerperium, antepartum 9589169337 07 O99.210 O36.8330 Z3A.35 [id number] Emily Knight [facility] [address],[place] [address] 07/14/2020 09:30:37 07/14/2020 10:51:48 Routine care 931575298 Z34.93 [id number] MD Nazario Fagan [address],[place] [address] 07/14/2020 09:29:59 07/14/2020 12:15:35 Maternal obesity complicating , childbirth and the puerperium, antepartum 6051480501 07 O99.213 [id number] MD Nazario Fagan [address],[place] [address] 07/14/2020 09:30:18 07/14/2020 10:53:19 condition affecting obstetrical care of mother 716142013 O36.8330 Z3A.36 [id number] MD Nazario Fagan [address],[place] [address] 07/17/2020 11:29:54 07/17/2020 12:31:51 Maternal obesity complicating , childbirth and the puerperium, antepartum 0727412982 07 O99.213 [id number] MD Nazario Fagan [address],[place] [address] 07/17/2020 12:02:08 07/17/2020 12:53:17 condition affecting obstetrical care of mother 401854447 O36.8330 Z3A.36 [id number] Emily Knight [facility] [address],[place] [address] 07/21/2020 10:27:21 07/21/2020 11:45:14 Routine care 825998165 Z34.93 [id number] MD Nazario Fagan [address],[place] [address] 07/21/2020 10:26:51 07/21/2020 11:44:01 Maternal obesity complicating , childbirth and the puerperium, antepartum 3962545525 07 O99.213 [id number] MD Nazario Fagan [address],[place] [address] 07/21/2020 11:14:31 07/21/2020 12:30:02 condition affecting obstetrical care of mother 647766141 O36.8330 [id number] MD Nazario Fagan [address],[place] [address] 07/24/2020 11:31:47 07/24/2020 14:10:39 Maternal obesity complicating , childbirth and the puerperium, antepartum 3158660492 07 O99.213 [id number] Phong Camilo MD [facility] [address],[place] [address] 07/24/2020 11:59:29 07/24/2020 12:52:33 Abnormal heart rate 175843033 O36.8330 Z3A.37 [id number] Emily Knight [facility] [address],[place] [address] 07/28/2020 15:08:34 07/28/2020 16:51:47 Routine care 247219449 Z34.93 [id number] MD Nazario Fagan [address],[place] [address] 07/28/2020 15:01:18 07/28/2020 15:44:49 Maternal obesity complicating , childbirth and the puerperium, antepartum 0139732357 07 O99.213 [id number] MD Nazario Fagan [address],[place] [address] 07/28/2020 15:48:08 07/29/2020 21:56:23 condition affecting obstetrical care of mother 396946810 O36.8330 Z3A.38 [id number] [facility] [address],[place] [address] 08/04/2020 11:29:49 08/04/2020 16:44:14 -induced hypertension 72010127 O13.9 Doing well. PIH precaution s given. RTC for routine post or sooner if any problems/c oncerns. [id number] [facility] [address],[place] [address] 2020 17:30:40 09/02/2020 15:33:20 state 05685159 Z39.2 Continue to watch for signs/symp toms [...] plan if desired Contracept ion care management 307991926 Z30.9 Pt desires nexplanon. She has not resumed intercours e. Will check hcg today and return in 1-2 days for insertion. Explained importance of continued abstinence . [id number] Emily Knight CNM [facility] [address],[place] [address] 09/03/2020 10:47:11 09/03/2020 11:21:40 Contraception care management 494628584 Z30.9 RTC in 1 month for annual and med check or sooner if any problems or concerns. [id number] Phong Camilo MD [facility] [address],[place] [address] 09/08/2020 11:59:29 09/08/2020 20:58:45 Contraception care management 792380663 Z30.9 Nexplanon was removed. There was some purulent watery fluid that egressed from the incision. The infected area. To improve almost immediatel y. She is on antibiotic s that was given to her by her primary care doctor. She was instructed to take those antibiotic s. She will be seen tomorrow [id number] Phong Camilo MD [facility] [address] [address] 09/09/2020 13:54:14 09/09/2020 22:55:27 Contraception care management 518216831 Z30.9 this patient is a 20-year-ol d female who had an infected the Nexplanon. It was inserted about a week ago. She returns today after removal of the Nexplanon yesterday. The pain is much better the patient states. The induration and erythema is improved. There is still some significan t induration . She will continue antibiotic s. She will return in 1 week. [id number] Emily Knight CNM [facility] [address],[place] [address] 10/13/2020 11:00:08 10/13/2020 14:14:04 Gynecologic examination 08646316 Z01.419 Z11.3 Z11.8 Take Calcium with Vitamin [...] paper copy of today's plan if desired. [id number] Phong Camilo MD [facility] [address],[place] [address] 01/31/2024 10:28:35 01/31/2024 11:17:51 screening 420330036 Z36.87 Z3A.16 [id number] Phong Camilo MD [facility] [address],[place] [address] 01/31/2024 10:29:25 01/31/2024 12:22:13 Routine care 870508878 Z34.81 [id number] Phong Camilo MD [facility] [address],[place] [address] 02/28/2024 10:27:01 02/28/2024 11:47:33 screening for malformation 130194823 Z36.3 Z3A.20 [id number] OWEN CORREIA MD [facility] [address],[place] [address] 02/28/2024 10:28:27 02/28/2024 13:33:56 Congenital septal defect of heart 88946047 Q21.9 - maternal, repaired at delivery- will order pelvic US Gestation period, 20 weeks 05724351 Z3A.20 Maternal o besity complicating , childbirth and the puerperium, antepartum 2991951918 07 O99.212 - testing at 34 weeks [id number] Phong Camilo MD [facility] [address],[place] [address] 03/27/2024 10:28:50 03/27/2024 11:29:02 Routine care 662215316 Z34.81 [id number] Phong Camilo MD [facility] [address],[place] [address] 04/24/2024 10:30:36 04/24/2024 11:27:12 Routine care 432336149 Z34.81 [id number] Phong Camilo MD [facility] [address],[place] [address] 05/08/2024 10:04:13 05/08/2024 11:04:51 Routine care 437105324 Z34.81 [id number] OWEN CORREIA MD [facility] [address],[place] [address] 05/23/2024 12:45:59 05/23/2024 14:25:44 Maternal obesity complicating , childbirth and the puerperium, antepartum 2306783740 07 O99.212 - testing at 34 weeks Large for gestation age fetus 948881402 O36.63X0 Non-alcoho lic fatty liver 538654211 K76.0 Placenta circumvallata 6781472 O43.119 Gestation period, 32 weeks 7171951 Z3A.32 [id number] [facility] [address],[place] [address] 06/06/2024 14:29:05 06/07/2024 03:54:11 Maternal obesity complicating , childbirth and the puerperium, antepartum 4435819576 07 O99.213 [id number] Phong Camilo MD [facility] [address],[place] [address] 06/06/2024 14:30:20 06/06/2024 16:04:02 -induced hypertension 97785711 O13.3 Z3A.34 [id number] Ryanne Jenkins CNM [facility] [address],[place] [address] 06/06/2024 14:30:44 06/06/2024 16:57:36 Gestation period, 34 weeks 62585155 Z3A.34 [id number] Ryanne Jenkins CNM [facility] [address],[place] [address] 06/13/2024 11:13:18 06/14/2024 09:59:55 Maternal obesity complicating , childbirth and the puerperium, antepartum 0047194776 07 O99.213 [id number] Phong Camilo MD [facility] [address],[place] [address] 06/13/2024 11:13:47 06/13/2024 12:19:02 Maternal obesity complicating , childbirth and the puerperium, antepartum 6103688615 07 O99.213 O13.3 Z3A.35 [id number] [facility] [address],[place] [address] 06/13/2024 11:14:03 06/13/2024 12:43:55 Gestation period, 35 weeks 79276226 Z3A.35 [id number] [facility] [address],[place] [address] 06/19/2024 10:19:13 06/20/2024 03:51:07 Maternal obesity complicating , childbirth and the puerperium, antepartum 4776674790 07 O99.213 [id number] Phong Camilo MD [facility] [address] [place] [address] 06/19/2024 10:19:57 06/19/2024 11:41:04 Chronic hypertension complicating AND/OR reason for care during 85392696 O16.9 O99.210 O26.643 Z3A.36 [id number] [facility] [address],[place] [address] 06/19/2024 10:20:28 06/19/2024 13:49:55 Gestation period, 36 weeks 08284645 Z3A.36 [id number] Ryanne Jenkins CNM [facility] [address],[place] [address] 08/01/2024 10:20:26 08/01/2024 10:54:20 care status 491448105 Z39.2 doing wellplan bilateral salpingect omycontinu e to monitor mood Health Concerns Section Related Observation LastModified by Organization Detai ls LastModified Time None Recorded Concern Status LastModified by Organization Details LastModified Time None Recorded Advance Directives Directive N: Payers Encounter Date Sequence Insurance Name Policy Number Policy Ramos Covered Member ID Ramos Member ID Guarantor Name 06/13/2024 2 [place] [employer] Melton N Sheila [id number] Melton N Frazier 06/13/2024 1 [place] [id number] Velma Baez [id number] [place] 06/19/2024 2 [place] [employer] [place] [employer] Melton N Sheila [id number] Melton N Frazier 06/19/2024 1 [place] [id number] Velma Baez [id number] [place] 06/19/2024 2 [place] [employer] [place] [employer] Melton N Sheila [id number] Melton N Frazier 06/19/2024 1 [place] [id number] Velma Baez [id number] [place] 06/19/2024 2 [place] [employer] [place] Melton N Sheila [id number] Melton N Frazier 06/19/2024 1 [place] [id number] Velma Baez [id number] [place] 08/01/2024 2 [place] [place] Melton N Sheila [id number] Melton N Frazier 08/01/2024 1 [place] [id number] Velma Baez [id number] [place] Notes Date Note Type Note Provider Name and Address Organization Details Recorded Time 08/01/2024 text/html VisitReported bypatient.Quality:N Context:complicatio ns of : none; complications of labor: none; feeding choice: bottle; resumed menstrual bleeding no Associated Symptoms:normal mood (seeing psychiatrist added wellbutrin 4 weeks ago) Contraception Plan:permanent sterilizationNotes: will schedule tubal ligation Tavia jane [facility] 08/01/2024 20:23:00 OBGyn Episode Ob Episode Information Episode Created Date Number of Fetuses Patient Bloodtype Patient rh Status Prepregnancy Weight lbs Domestic Partner Domestic Partner Phone Father Name Shingle Packer Status 12/28/19 20 1 CLOSED Fetus Data [...] Domestic Partner Domestic Partner Phone Father Name Shingle Packer Status 01/28/20 20 1 A Positive 266 CLOSED Fetus Data First Name Last Name Admitted to NICU Weight (g) Sex Living Outcome Pediatric Complications Fetus ID Race Codes Race Delivery Type 2806.60 05 M true Full Term terminal meconium 6172 Vaginal Delivery Problems Problem Notes took bp 07/17/20 118/78 Problem Name Start Date End Date Resolution Snomed Code Not e Anxiety disorder 138021286 Bus par Obesity 709324725 BMI - Ante nahid testing at 32 wks Nausea and vomiting MEDICATION 36860355 zofran Small head 667502182 Maximino Calculation Initial Maximino Date Initial Exam [...] Gestation 0 [email or web address] 01/28/2020 08/10/19 21 0 Pre- Flowsheet Flowsheet Date 12/31/2019 Ro Score Blood [...] Weight in lbs Pre/Post Dialysis Refused Weight 263.509894890539 BP Diastolic BP Location Tested BP Systolic [...] Weight in lbs Pre/Post Dialysis Refused Weight 255.607268794915 BP Diastolic BP Location Tested BP Systolic [...] Weight in lbs Pre/Post Dialysis Refused Weight 254.110538261946 BP Diastolic BP Location Tested BP Systolic [...] Weight in lbs Pre/Post Dialysis Refused Weight 263.304632445142 BP Diastolic BP Location Tested BP Systolic [...] Weight in lbs Pre/Post Dialysis Refused Weight 263.940169522354 BP Diastolic BP Location Tested BP Systolic [...] Weight in lbs Pre/Post Dialysis Refused Weight 263.139181516780 BP Diastolic BP Location Tested BP Systolic [...] Weight in lbs Pre/Post Dialysis Refused Weight 265.362737895323 BP Diastolic BP Location Tested BP Systolic BP Type 81 137 Fetus Heart Rate Present A 155 Fetus Movement A Yes Comments Doing very well. NST NR toda y, BPP 10/19. DIscussed, precautions given. Anxiety- off meds, is [...] Weight in lbs Pre/Post Dialysis Refused Weight 266.621387402891 BP Diastolic BP Location Tested BP Systolic [...] Weight in lbs Pre/Post Dialysis Refused Weight 268.626397091537 BP Diastolic BP Location Tested BP Systolic [...] Weight in lbs Pre/Post Dialysis Refused Weight 274.384506987351 BP Diastolic BP Location Tested BP Systolic [...] Weight in lbs Pre/Post Dialysis Refused Weight 272.612261889797 BP Diastolic BP Location Tested BP Systolic [...] induction unless absolutely necessary. Having a boy Bacilio. Size > dates. Growth u/s last week [...] Weight in lbs Pre/Post Dialysis Refused Weight 273.982020704138 BP Diastolic BP Location Tested BP Systolic [...] Weight in lbs Pre/Post Dialysis Refused Weight 271.311191911947 BP Diastolic BP Location Tested BP Systolic [...] Estim ated Date of Delivery false Thalassemia (Georgian, Vietnamese, Mediterranean, Or Background): MCV < 80 false Neural Tube Defect (Meningomyelocele, Spina Bifi da, Or Anencephaly) false Congenital Heart Defect false Down Syndrome false Sean-Sachs (eg, Anabaptist, Cajun, [place]) f alse Jomar Disease false Sickle Cell [...] Domestic Partner Domestic Partner Phone Father Name Shingle Packer Status 01/31/20 24 1 A Positive [place] CLOSED Fetus Data First Name Last Name Admitted to NICU Weight (g) Sex Living Outcome Pediatric Complications Fetus ID Race Codes Race Delivery Type 3458.63 9 F true Prematur e 95846 Vaginal Delivery Problems Problem Notes echo referral faxed maternal hx of cardiac defect- sched in FebFetal echo scheduled 04/18/24 - [facility] 05/01/24 & 05/29/24 9:45 us only Previous last name *Sheila NORMAL ECHOCARDIOGRAM Problem Name Start Date End Date Resolution Snomed Code Not e Large for gestation age fetus 616701241 HISTORICAL Metabolic dysfunction-associat ed steatotic liver disease 7592910521 transaminitisre c RUQ US- sched Ac Radiology 03/21 @ 0900M referall in 1-2 weeks faxed 03/16labs drawn at hospital 24 hr urine in processScheduled [facility] 04/04/24 0945 Level II US and Office visit Placenta circumvallata 0264418 -induced hypertension 32884579 HISTORICAL Tachycardia 8712886 MATERAL - cardiology Suspected macrosomia 132642061 Greater than 99 th percentile Cholestasis 06/18/2024 64670923 Female sterilization 21151183 Maximino Calculation Initial Maximino Date Initial Exam [...] Weight in lbs Pre/Post Dialysis Refused Weight 308.141825718491 BP Diastolic BP Location Tested BP Systolic [...] Weight in lbs Pre/Post Dialysis Refused Weight 306.410330194921 BP Diastolic BP Location Tested BP Systolic [...] Type Weight in lbs Pre/Post Dialysis Refused 313.361043618068 BP Diastolic BP Location Tested BP Systolic [...] Type Weight in lbs Pre/Post Dialysis Refused 319.14239098039 BP Diastolic BP Location Tested BP Systolic [...] Type Weight in lbs Pre/Post Dialysis Refused 317.239210104752 BP Diastolic BP Location Tested BP Systolic [...] Weight in lbs Pre/Post Dialysis Refused Weight 317.475809114245 BP Diastolic BP Location Tested BP Systolic [...] Weight in lbs Pre/Post Dialysis Refused Weight 316.468998301183 BP Diastolic BP Location Tested BP Systolic [...] Weight in lbs Pre/Post Dialysis Refused Weight 316.394961106065 BP Diastolic BP Location Tested BP Systolic [...] Weight in lbs Pre/Post Dialysis Refused Weight 318.846165871772 BP Diastolic BP Location Tested BP Systolic [...] Type Weight in lbs Pre/Post Dialysis Refused 318.788286395402 BP Diastolic BP Location Tested BP Systolic [...] Weight in lbs Pre/Post Dialysis Refused Weight 316.766267494255 BP Diastolic BP Location Tested BP Systolic BP Type 87 128 Fetus Heart Rate Present Fetus Movement Comments [...] Type Weight in lbs Pre/Post Dialysis Refused 316.394581293943 BP Diastolic BP Location Tested BP Systolic [...] Post Complications Tubal Sterilization Discharge Date Comments 5 Induce d 36.4 10.35 Ryanne Jenkins CNM cholestas isfemale steriliza tionsuspe cted macrosomi aGreater than 99th percentil etachycar diaMATERA L - cardiolog ymetaboli c dysfuncti on-associ ated steatotic liver diseasetr ansaminit is rec RUQ US- [facility] 03/21 @ 0900 [facility] referall in 1-2 weeks faxed 03/16 labs drawn at hospital 24 hr urine in process Scheduled M [facility] [place] 04/04/24 0945 Level II US and Office visitplac enta circumval latalarge for gestation age fetusHIST ORICALpre gnancy-in duced hypertens ion Discharge Information Feeding Method Contraceptive Method Maternal HG B and HCT Levels
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
--- NOTE | 2024-08-21 09:26 | P.PNAN_ITS ---
Anes - Initial Pre Proc Eval Procedure: Operation Date: 08/21/24 10:45 Proposed Procedures p Bilateral Laparoscopic Salpingectomy - Phong Camilo MD Date/Time: 08/21/24 09:26 Surgeon: Phong Camilo MD Pre Op Diagnosis: desires sterilization Patient Data Age: 23 Gender: F Height: 1.7 m Weight: 131 kg Allergies Allergy/AdvReac Type Severity Reaction Status Date / Time ketamine Allergy Intermediate Other Verified 08/14/24 10:15 Home Medications ?Medication ?Instructions ?Recorded ?Confirmed ?Type vit no.95-ferrous 1 tablet PO DAILY 07/14/20 08/14/24 History fumarate 28 mg-folic acid 800 mcg tablet () lurasidone 60 mg tablet 60 mg PO QPM 03/15/24 08/14/24 History sertraline 25 mg tablet 25 mg PO Q24H 06/19/24 08/14/24 History bupropion HCl 150 mg 24 hr tablet, 150 mg PO QAM 08/14/24 08/14/24 History extended release Patient hx anesthesia problems: none Family hx anesthesia problems: none Results Review: All pre-operative results and documents have been reviewed as part of the pre- operative evaluation. [facility] Past Medical History Medical History Morbid obesity Anxiety Depression Hypertension affecting in third trimester Patient denies medical problems Family History Family History Grandparent Diabetes mellitus Grandparent Heart attack Sibling Epilepsy Social History Social History Smoking status: Never smoker Alcohol intake: never Substance use: never Substance use type: does not use Do You Feel Safe in your Home?: Yes Lack of Transportation: No Lack of Food: Never True Current Housing: I Have Housing Concerned About Future Housing: No Difficulty Paying Gas/Electric Bills: No Difficulty Paying for Meds: No Currently Unemployed: No Education: Bachelor's Degree Difficulty w/ Childcare or Family Care: No Living arrangements: with family Additional living arrangements comments: Lives with spouse and 3 children Gender identity (if verbalized by the patient): Female Spiritual care concerns: No Anes - Eval Final PreProcedure Day of Procedure 08/21/24 09:26 Patient weight: morbidly obese Heart: regular rate and rhythm Lungs: clear to auscultation Airway: Mallampati scale class II Neurological: alert and oriented Last oral intake: >/= 8 hours ASA classification: III Emergent: no Anesthetic plan: proceed Anesthesia type and monitoring: general ETT and standard monitoring Results Review: All pre-operative results and documents have been reviewed as part of the pre- operative evaluation. Informed Consent: The patient's anesthetic plan and its attendant risks and benefits were discussed with the patient/family/POA. Questions were solicited and answers provided to the satisfaction of the patient/family/POA.
[2024-08-21] MEDS: SCOPOLAMINE 1 MG PATCH 1 PATCH TRANSDERM (10:00)
[2024-08-21] MEDS: ACETAMINOPHEN 500 MG TABLET 1000 MG PO (10:00)
[2024-08-21] MEDS: KETOROLAC 15 MG/ML VIAL (*BKC) IV PUSH (10:00)
[2024-08-21] MEDS: LACTATED RINGERS 1,000 ML 30 ML IV CONT ×2 (10:00→11:40)
[2024-08-21 10:18] LABS: BEDSIDEPREGUCG Negative (Negative)
--- NOTE | 2024-08-21 10:23 | PM.IMHP ---
H&P: HPI History of Present Illness Date/Time: 08/21/24 10:23 Chief Complaint: Unwanted fertility Narrative: This patient is a 23-year-old female found on fertility. We have agreed to perform laparoscopic salpingectomy. She understands risks, benefits, and alternatives. She has completed the informed consent process is ready to proceed. The patient understands the details of the procedure. The procedure has been explained in detail. She understands the risks. She understands that injuries may occur that result in hospitalization, more surgery, and severe illness. She understands risk of hemorrhage and infection. She denies any chest pain or shortness of breath. She denies any nausea, vomiting, fever, chills. Review of Systems Review of Systems: All systems reviewed & are unremarkable except as noted in HPI and below Constitutional: Constitutional: Denies chills, Denies fatigue, Denies fever(s) and Denies weakness Eyes: Eyes: Denies blurry vision, Denies change in vision, Denies loss of peripheral vision, Denies loss of vision, Denies other visual disturbances and Denies eye pain ENT: Denies vertigo, Denies dizziness, Denies hearing loss, Denies mouth pain, Denies nasal obstruction, Denies neck mass and Denies neck pain Cardiovascular: Cardiovascular: Denies chest pain, Denies diaphoresis, Denies syncope, Denies leg edema and Denies dyspnea Respiratory: Respiratory: Denies chest congestion, Denies cough, Denies hemoptysis, Denies dyspnea and Denies wheezing Gastrointestinal: Gastrointestinal: Denies abdominal pain, Denies constipation, Denies diarrhea, Denies nausea and Denies vomiting Genitourinary: Genitourinary: Denies hematuria, Denies change in libido, Denies nocturia, Denies genital lesions, Denies flank pain and Denies urinary urgency Musculoskeletal: Musculoskeletal: Denies abnormal gait, Denies back pain, Denies myalgias, Denies arthralgias, Denies joint swelling, Denies muscle weakness and Denies neck pain Integumentary/Breasts: Skin/Breast: Denies swelling, Denies breast pain, Denies breast mass, Denies dry skin, Denies nipple discharge, Denies unusual bruising and Denies jaundice Neurologic: Denies Neuro-related abnormal movements, Denies Abnormal speech present, Denies abnormal gait, Denies behavioral changes, Denies confusion, Denies vertigo, Denies dizziness, Denies syncope, Denies loss of vision, Denies memory loss, Denies convulsions and Denies weakness Psychiatric: Psychiatric: Denies abnormal sleep pattern, Denies behavioral changes, Denies change in libido, Denies confusion, Denies depression, Denies anhedonia and Denies memory loss Endocrine: Endocrine: Reports no additional endocrine complaints, Denies change in libido and Denies fatigue Hematologic/Lymphatic: Hematologic/Lymphatic: Reports no additional hematologic/lymphatic complaints Allergic/Immunologic: Allergic/Immunologic: Reports no additional allergic/immunologic complaints and Denies wheezing PMFSH Past Medical History Medical History Morbid obesity Anxiety Depression Hypertension affecting in third trimester Patient denies medical problems Family History Family History Grandparent Diabetes mellitus Grandparent Heart attack Sibling Epilepsy Social History Social History Smoking status: Never smoker Alcohol intake: never Substance use: never Substance use type: does not use Do You Feel Safe in your Home?: Yes Lack of Transportation: No Lack of Food: Never True Current Housing: I Have Housing Concerned About Future Housing: No Difficulty Paying Gas/Electric Bills: No Difficulty Paying for Meds: No Currently Unemployed: No Education: Bachelor's Degree Difficulty w/ Childcare or Family Care: No Living arrangements: with family Additional living arrangements comments: Lives with spouse and 3 children Gender identity (if verbalized by the patient): Female Spiritual care concerns: No Meds Home Medications and Allergies Home Medications ?Medication ?Instructions ?Recorded ?Confirmed ?Type vit no.95-ferrous 1 tablet PO DAILY 07/14/20 08/14/24 History fumarate 28 mg-folic acid 800 mcg tablet () lurasidone 60 mg tablet 60 mg PO QPM 03/15/24 08/14/24 History sertraline 25 mg tablet 25 mg PO Q24H 06/19/24 08/14/24 History bupropion HCl 150 mg 24 hr tablet, 150 mg PO QAM 08/14/24 08/14/24 History extended release Allergies Allergy/AdvReac Type Severity Reaction Status Date / Time ketamine Allergy Intermediate Other Verified 08/21/24 10:23 Vital Signs Vital Signs - 24 hr 08/21/24 10:00 Temperature 98.8 F Pulse Rate 91 Respiratory Rate 16 Blood Pressure 116/76 Pulse Oximetry 97 Oxygen Delivery Room Air Exam Const: General: cooperative, healthy appearing, comfortable and no acute distress Orientation/consciousness: oriented to person, oriented to place and oriented to time HENMT: Head: normal to inspection Ears: external ears normal Face/Nose/Sinus: Normal external nose present and normal facial exam Face and sinus: normal facial exam Eyes: General: appearance normal, both eyes and all related structures Neck: Neck: normal visual inspection, trachea midline and supple Resp: Auscultation: clear to auscultation bilaterally, no crackles, no rales, no rhonchi and no wheezes Cardio: Rate: regular rate Rhythm: regular rhythm Heart sounds: no click, no murmurs and no rubs GI: GI Palp: No abdominal tenderness, No Soft to palpation, No Tenderness to palpation present (GI) and No Palpable mass present Auscultation: normal bowel sounds Skin: General skin exam: normal color and no rashes or lesions noted Neuro: General: oriented to person, oriented to place and oriented to time Extrem: General: normal to inspection, no joint enlargement, no clubbing, cyanosis or edema, no pedal edema and no calf tenderness Psych: Appearance: grossly normal Mental Status: mental status grossly normal Speech and movement: Normal speech and movement present Assessment and Plan Assessment and plan (1) Unwanted fertility: Code(s): Z30.09 - Encounter for other general counseling and advice on contraception Status: Acute Assessment and Plan: This patient is a 23-year-old female found on fertility. We have agreed to perform laparoscopic salpingectomy. She understands risks, benefits, and alternatives. She has completed the informed consent process is ready to proceed.
--- NOTE | 2024-08-21 10:24 | WPDHPUPDATE1 ---
History and Physical Update Update Date/Time: 08/21/24 10:24 History and Physical has been reviewed, including an updated exam of the patient. There are NO changes in the patient's condition. Risks, benefits, and alternatives have been discussed and questions answered. Patient agrees to proceed with procedure.
--- NOTE | 2024-08-21 11:22 | S_PTH ---
PATIENT: Linh Frazier LOC: [facility] U#:[id number] AGE/SX: 23/F ROOM: RE08/21/[address]: Phong Camilo MD : 2000 BED: DIS: 08/21/2024 SPEC #: [id number] RECD: 08/21/24 12:27 STATUS: MARYANNE RECande #: [id number] SANDEEP: 08/21/24 11:[address]: Phong Camilo DEPT: [facility] Surgical RECD BY: Catina Dudley ENTERED: 08/21/24 12:27 SP TYPE: Surgical OTHR DR: Dong Zepeda, UROLOGY TEACHER Tissues: A - Fallopian Tube Bilateral Procedures: Gross and Microscopic Level 2 Hematoxylin and Eosin Stain
--- NOTE | 2024-08-21 11:39 | P.OP_ITS ---
Procedure Note - Detailed Date of Procedure 08/21/24 Pre-op Diagnosis desires sterilization Post-op Diagnosis Same Procedure Performed Laparoscopic bilateral salpingectomy Surgeon Phong Camilo MD Anesthesia General Indications Unwanted fertility Findings Normal pelvic anatomy Description of Procedure The patient was taken the operating room. She was prepped and draped in the dorsal lithotomy position after induction of general anesthesia. A 5 mm skin incision was made in the left upper quadrant of the abdominal skin. A 5 mm trocar was inserted the intra-abdominal cavity under direct visualization of the scope. Pneumoperitoneum was achieved. A 5 mm trocar was inserted in the left lower quadrant identical fashion. A 5 mm infraumbilical trocar was inserted in identical fashion as well. The bilateral fallopian tubes were removed. This was done by using a LigaSure cautery. The mesosalpinx adjacent to the tube was cauterized transected with LigaSure. This was initiated in the area the ovary and in a stepwise fashion moved medially to the area of the cornu of the uterus. Once there the fallopian tube was cauterized and transected. This was done in identical fashion on each side. The fallopian tubes were taken out through the left lower quadrant trocar site. Bleeding occurred at the cornual site where the uterus was held. Cautery and a 3-0 V lock suture were used to make hemostat ic. The pneumoperitoneum was reduced. The trocars removed. The skin was closed with subcuticular 4 Monocryl and covered with Dermabond. She was taken to cover stable condition. Sponge lap and needle counts were correct x2. Estimated Blood Loss 5 Drains No Packing No Pathology Yes Complications No immediate complications Condition Stable Disposition PACU
[2024-08-21] MEDS: fentaNYL CITRATE INJ (*CRX) 100 MCG/2 ML VIAL 25 MCG IV PUSH ×2 (12:20→12:23)
[2024-08-21] MEDS: oxyCODONE HCL (*CRX) 5 MG TAB IR PO (13:15)
== END 2024-08-21 14:25 | disposition home or self-care (01) ==
PROVIDERS: PCP Nurse Practitioner; Visit Provider Obstetrics & Gynecology
PROC: (CPT 49320; principal; 2024-08-21 10:45)
DX: Z30.2 Encounter for sterilization (principal)
CPT/HCPCS: 58661; 88302; A9270; J1100; J1885; J2250; J2405; J2704; J3010; J7120